=== PATIENT | female | born 1935 | race Caucasian/White ===

== ENCOUNTER → 2022-04-07 13:04 | Outpatient (CLI) | payer MEDICARE, OTHER, SELFPAY ==
--- NOTE | ~2022-04-07 | XR_ITS ---
XR hip LT min 2V DATE: 04/07/2022 13:51 INDICATION: Left hip pain TECHNIQUE: AP and lateral views of left hip COMPARISON: None FINDINGS: Mild left hip osteoarthritis. No fracture or dislocation, avascular necrosis or bone destru ction. Normal alignment at the pubic symphysis and sacral iliac joints. IMPRESSION: Mild left hip osteoarthritis Reviewed, dictated and finalized at location A.
== END ==
PROVIDERS: PCP Physician Assistant; Visit Provider Physician Assistant
DX: M16.12 Unilateral primary osteoarthritis, left hip (principal)
CPT/HCPCS: 73502

== ENCOUNTER → 2023-03-02 10:42 | Outpatient (CLI) | payer MEDICARE, OTHER, SELFPAY ==
--- NOTE | ~2023-03-02 | CT_ITS ---
EXAMINATION: CT abdomen pelvis wo con DATE: 03/02/2023 11:21 INDICATION: Unspecified abdominal pain TECHNIQUE: Computed tomography (CT) of the abdomen and pelvis was performed without intravenous contr ast. The dose-length product (DLP) was 880.62 mGy-cm. Automated exposure control and iterative recons truction technique were employed. COMPARISON: 04/22/2019 FINDINGS: Minimal dependent atelectasis is present in the lung bases. The heart size is normal. Calci fied coronary artery atherosclerosis is noted. A 5 mm nodule of the right lower lobe is not significa ntly changed since the comparison examination, consistent with old granulomatous disease. The liver, spleen, pancreas, gallbladder, and adrenal glands are normal. Cysts of the kidneys measure up to 3.1 cm on the left. There is calcified atherosclerosis of the aorta and many of the other arteries. No pa thologically enlarged abdominal or pelvic lymph nodes are identified. No free intraperitoneal gas or evidence of bowel obstruction. Colonic diverticulosis is present without evidence of diverticulitis. There is submucosal fat deposition of the ascending and transverse colon and rectum which is nonspeci fic. The appendix is normal. There is severe lumbar spondylosis. IMPRESSION: 1. No CT correlate for the patient's symptoms. Reviewed, dictated and finalized at location F.
== END ==
PROVIDERS: PCP Physician Assistant; Visit Provider Physician Assistant
DX: R10.9 Unspecified abdominal pain (principal)
CPT/HCPCS: 74176

== ENCOUNTER → 2023-04-03 11:21 | Outpatient (CLI) | payer MEDICARE, OTHER, SELFPAY ==
--- NOTE | ~2023-04-03 | CT_ITS ---
EXAMINATION: CT brain wo con DATE: 04/03/2023 12:08 INDICATION: Headache, unspecified. Dizziness. TECHNIQUE: Computed tomography (CT) of the head was performed without intravenous contrast. The mA wa s adjusted according to patient size. Iterative reconstruction technique was employed. The dose-lengt h product was 599.57 mGy-cm. COMPARISON: None FINDINGS: There is an infarct in the right occipital lobe. There are infarcts involving the right tem poral parietal white matter. There is no intracranial hemorrhage or abnormal mass lesion. The ventric les are normal in size. There are likely changes of ocular lens replacement surgeries. The paranasal sinuses are clear. The mastoid air cells are normal. IMPRESSION: 1. Infarcts involving the right temporal, parietal, and occipital lobes, most likely subacute. Reviewed, dictated and finalized at location E. IMPRESSION: 1. Infarcts involving the right temporal, parietal, and occipital lobes, most l ikely subacute.
== END ==
PROVIDERS: PCP Physician Assistant; Visit Provider Physician Assistant
DX: R51.9 Headache, unspecified (principal)
CPT/HCPCS: 70450

== ENCOUNTER 2023-06-09 08:35 | Emergency (ER) | payer MEDICARE, OTHER, SELFPAY ==
--- NOTE | ~2023-06-09 | CT_ITS ---
EXAMINATION: CT abdomen pelvis wo con DATE: 06/09/2023 11:50 INDICATION: Abdominal pain, rectal bleeding for 7 days TECHNIQUE: Computed tomography (CT) of the abdomen and pelvis was performed without intravenous contr ast. Automated exposure control and iterative reconstruction technique were employed. Exam dose: 113 2.88 mGy-cm total exam DLP. COMPARISON: 03/02/2023 CT abdomen pelvis 04/22/2019 CT abdomen pelvis FINDINGS: The lung bases are clear of infiltrate or consolidation. Normal heart size. Coronary artery calcifications. No pericardial or pleural effusion. Calcified right hilar and subcarinal nodes, calc ified middle lobe pulmonary edema, consistent with old pulmonary granulomatous disease. 6 mm posteromedial right lower lobe nodule, not significantly changed since 04/22/2019, consistent wi th benign process. Occasional hepatic and splenic calcified granulomas consistent with old granulomatous disease. No hep atic, splenic, pancreatic, and adrenal space-occupying mass lesion is evident. The gallbladder is pre sent. No bile duct or pancreatic duct dilatation. 2 cm lateral lower pole right renal probable exophytic cyst with attenuation of 15 Hounsfield units. 3.2 cm upper pole left renal exophytic cyst. No urinary tract calculus or hydroureteronephrosis. The uterus, adnexal areas and urinary bladder are unremarkable. Normal appendix. There numerous diverticula of left and right colon; no CT evidence of diverticulitis. No bowel obstru ction, bowel wall thickening, pneumatosis or intraperitoneal free air. Grade 1 anterolisthesis at L4-5 due to degenerative change at the apophyseal joints. Prominent multilevel degenerative disc disease of the mid and lower lumbar spine. No suspicious osteo lytic or osteoblastic lesions are noted. IMPRESSION: Renal cysts Normal appendix Diverticulosis of the colon; no evidence of diverticulitis Reviewed, dictated and finalized at Location A. Reviewed, dictated and finalized at location A. 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
[2023-06-09 08:39] VITALS: BP 217/88; PULSE 88; RESP 20; TEMP 36.2; O2SAT 97
[2023-06-09 08:58] LABS: Basophils Absolute Auto 0.1 K/mm3 (0.0-0.1); Eosinophils Absolute Auto 0.2 K/mm3 (0-0.3); Eosinophils Percent Auto 2.5 % (0-4.4); Hematocrit 37.2 % (37.0-47.0); Hemoglobin 11.7 g/dL (12.0-15.0); Immature Granulocyte Absolute 0.06 K/mm3 (0.00-0.031); Immature Granulocyte Percent A 0.7 % (0-0.5); Lymphocytes Absolute Auto 1.54 K/mm3 (0.9-3.2); Lymphocytes Percent Auto 17.6 % (18.3-44.2); Mean Corpuscular HGB Conc 31.5 g/dl (32-36); Mean Corpuscular Hemoglobin 28.5 pg (26-34); Mean Corpuscular Volume 90.5 fl (80-100); Mean Platelet Volume 8.9 fl (7.4-10.4); Monocytes Absolute Auto 0.4 K/mm3 (0.1-0.6); Monocytes Percent Auto 4.7 % (2.6-8.5); Neutrophils Absolute Auto 6.4 K/mm3 (1.3-6.7); Neutrophils Percent Auto 73.5 % (45.5-73.1); Platelet Count Result 342 k/mm3 (150-375); Red Blood Count 4.11 M/mm3 (4.2-5.4); Red Cell Distribution Width 13.7 % (11.5-14.5); White Blood Count 8.8 K/mm3 (4.5-10.0)
[2023-06-09 09:09] LABS: INR 0.9
[2023-06-09 09:10] LABS: Partial Thromboplastin Time 28.6 SECONDS (22.3-36.8)
[2023-06-09 09:12] LABS: Alanine Aminotransferase 13 U/L (6-35); Albumin Level 4.2 g/dL (3.5-5.1); Alkaline Phosphatase 126 U/L (38-126); Anion Gap 11 mmol/L (8-16); Aspartate Amino Transferase 18 U/L (14-36); Bilirubin,Total 0.5 mg/dL (0.2-1.3); Blood Urea Nitrogen 12 mg/dL (7-17); Calcium 9.1 mg/dL (8.4-10.2); Carbon Dioxide 25 mmol/L (22-30); Chloride 95 mmol/L (98-107); Estimated Glomerular Filt Rate 42; Glucose 229 mg/dL (65-110); Potassium 4.1 mmol/L (3.4-5.0); Sodium 131 mmol/L (137-145)
--- NOTE | 2023-06-09 11:18 | ED.GIBLEED ---
HPI - GI Bleed General Chief complaint: GI Bleed Stated complaint: rectal bleeding Time Seen by Provider: 06/09/23 10:42 Source: patient Mode of arrival: ambulatory Limitations: no limitations History of Present Illness HPI Narrative: This is a 88 year old female that presents to the ER for GI bleeding. Reports bright red blood per rectum this morning. Does report history of hemorrhoids. Reports some right sided abdominal pain and nausea. Reports she just finished Cipro for a UTI. Denies fever or vomiting. Related Data Home Medications Medication Instructions Recorded Confirmed albuterol sulfate 90 mcg/actuation 1 inhalation inhalation Q4H PRN 07/08/19 05/15/23 aerosol inhaler (Proventil HFA) loratadine 10 mg tablet (Claritin) 10 mg PO DAILY 07/08/19 05/15/23 acetaminophen 325 mg capsule 325 mg PO Q6H PRN 04/02/20 05/15/23 (Tylenol) docusate sodium 100 mg capsule 100 mg PO DAILY 04/02/20 05/15/23 sodium chloride 0.65 % nasal spray 2 spray intranasal QID PRN 04/02/20 05/15/23 aerosol (Saline Mist) Allergies Allergy/AdvReac Type Severity Reaction Status Date / Time amlodipine Allergy Unknown Diarrhea Verified 06/09/23 10:37 azithromycin Allergy Unknown Hives Verified 06/09/23 10:37 canagliflozin Allergy Unknown Itching Verified 06/09/23 10:37 cefuroxime Allergy Unknown Nausea and Verified 06/09/23 10:37 Vomiting celecoxib Allergy Unknown Diarrhea Verified 06/09/23 10:37 doxycycline Allergy Unknown Diarrhea Verified 06/09/23 10:37 ezetimibe Allergy Unknown Anaphylactic Verified 06/09/23 10:37 Shock fluconazole Allergy Unknown Nausea and Verified 06/09/23 10:37 Vomiting guaifenesin Allergy Unknown Rash Verified 06/09/23 10:37 hydrochlorothiazide Allergy Unknown Diarrhea Verified 06/09/23 10:37 levofloxacin Allergy Unknown Rash Verified 06/09/23 10:37 metronidazole Allergy Unknown Diarrhea Verified 06/09/23 10:37 nisoldipine Allergy Unknown Rash Verified 06/09/23 10:37 Penicillins Allergy Unknown Diarrhea Verified 06/09/23 10:37 phenylephrine Allergy Unknown Rash Verified 06/09/23 10:37 phenylpropanolamine Allergy Unknown Rash Verified 06/09/23 10:37 pravastatin Allergy Unknown Diarrhea Verified 06/09/23 10:37 rosuvastatin Allergy Unknown Diarrhea Verified 06/09/23 10:37 simvastatin Allergy Unknown Anaphylactic Verified 06/09/23 10:37 Shock Sulfa (Sulfonamide Allergy Unknown Diarrhea Verified 06/09/23 10:37 Antibiotics) terconazole Allergy Unknown ??RASH Unverified 06/09/23 10:37 tetracycline Allergy Unknown ??RASH Unverified 06/09/23 10:37 valsartan Allergy Unknown Diarrhea Verified 06/09/23 10:37 Contrast Media Allergy Unknown Rash Uncoded 06/09/23 10:37 CRESTOR Allergy Unknown ??REACTION Uncoded 06/09/23 10:37 ETHER Allergy Unknown DOES NOT Uncoded 06/09/23 10:37 REMEMBER NKFA Allergy Unknown Diarrhea Uncoded 06/09/23 10:37 RADIOPAQUECONTR Allergy Unknown FEET Uncoded 06/09/23 10:37 RASH,ITCHING Review of Systems Review of Systems: CONSTITUTIONAL: Denies fever GASTROINTESTINAL: Reports abdominal pain, nausea. Denies vomiting, or diarrhea. GENITOURINARY: Reports dysuria All systems reviewed & are unremarkable except as noted in HPI and below PMFSH Past Medical History Medical History (Updated 06/09/23 @ 14:00 by Nella Manjarrez PA-C) Anxiety disorder, unspecified Atherosclerotic heart disease of [place] coronary artery with unspecified angina pectoris Cerebrovascular accident (CVA) Chronic kidney disease (CKD) stage G3b/A2, moderately decreased glomerular filtration rate (GFR) between 30-44 mL/min/1.73 square meter and albuminuria creatinine ratio between 30-299 mg/g Chronic sinusitis, unspecified Gastro-esophageal reflux disease without esophagitis Hyperlipidemia, unspecified Hypertensive chronic kidney disease with stage 1 through stage 4 chronic kidney disease, or unspecified chronic kidney disease Hyponatremia Osteoarthritis Overactive bladder Type 2 diabetes mellitus with
[2023-06-09 11:48] LABS: Appearance Urine Clear (Clear); Bacteria Urine None Seen /hpf; Bilirubin Urine Negative (Negative); Blood Urine 2+ (Negative); Color Urine Yellow (Yellow); Glucose Urine UA Negative (Negative); Ketones Urine Negative (Negative); Leukocyte Esterase Ur 2+ LEU/UL (Negative); Nitrate Urine Negative (Negative); Non Pathogenic Casts 0-2; Protein Urine Negative (Negative); RBC Urine 0-2 /hpf (0-2); Specific Grav Ur 1.008 (1.001-1.035); Squamous Epithelial Cell Urine None seen /hpf (Few); Urobilinogen Urine 0.2 mg/dL (<2.0); pH Urine 6.5 (5.0-9.0)
[2023-06-09 11:50] LABS: Add Urine Microscopic? YES
[2023-06-09 12:04] VITALS: PULSE 67; RESP 17; O2SAT 99
[2023-06-09 12:40] VITALS: BP 183/72; PULSE 75
[2023-06-09 12:42] VITALS: BP 185/69; PULSE 74
[2023-06-09 12:43] VITALS: BP 173/94; PULSE 76
[2023-06-09 14:20] VITALS: BP 162/71; PULSE 74; RESP 15; O2SAT 98
== END 2023-06-09 14:25 | disposition home or self-care (01) ==
PROVIDERS: Emergency Medicine; Emergency Provider Physician Assistant; PCP Family Medicine
DX: K92.2 Gastrointestinal hemorrhage, unspecified (principal); K64.9 Unspecified hemorrhoids; R82.81 Pyuria; I25.10 Atherosclerotic heart disease of native coronary artery without angina pectoris; E11.22 Type 2 diabetes mellitus with diabetic chronic kidney disease; I12.9 Hypertensive chronic kidney disease with stage 1 through stage 4 chronic kidney disease, or unspecified chronic kidney disease; N18.32 Chronic kidney disease, stage 3b; J45.909 Unspecified asthma, uncomplicated; J32.9 Chronic sinusitis, unspecified; E78.5 Hyperlipidemia, unspecified; N32.81 Overactive bladder; M19.90 Unspecified osteoarthritis, unspecified site; F41.9 Anxiety disorder, unspecified; Z86.73 Personal history of transient ischemic attack (TIA), and cerebral infarction without residual deficits; Z79.82 Long term (current) use of aspirin; Z79.4 Long term (current) use of insulin; K57.90 Diverticulosis of intestine, part unspecified, without perforation or abscess without bleeding
CPT/HCPCS: 36415; 74176; 80053; 81001; 85025; 85610; 85730; 86850; 86900; 86901; 87086; 87088; 99284

== ENCOUNTER 2023-06-18 13:37 | Emergency (ER) | payer MEDICARE, OTHER, SELFPAY ==
[2023-06-18] VITALS (12 sets, daily range): BP systolic 147–254; BP diastolic 55–140; PULSE 77–121; RESP 15–31; TEMP 36.6; O2SAT 94–100
--- NOTE | ~2023-06-18 | XR_ITS ---
XR chest 1V portable DATE: 06/18/2023 16:19 INDICATION: Dyspnea. Lightheadedness. TECHNIQUE: Portable upright AP chest on 06/18/2023 at 1615 hours COMPARISON: 06/18/2017 two-view chest 12/15/2017 portable AP chest FINDINGS: Normal heart size. Aortic calcification and mild unfolding. No hilar or mediastinal enlarge ment is evident. No pulmonary infiltrate or consolidation, pleural effusion or pulmonary vascular congestion or pneumo thorax is detected. Osteopenia. Osteoarthritic change at the left glenohumeral joint. IMPRESSION: No active cardiopulmonary disease Aortic atherosclerosis Reviewed, dictated and finalized at location B. PUMPER PANELBOARD
--- NOTE | ~2023-06-18 | CT_ITS ---
EXAMINATION: CT brain wo con INDICATION: Dizziness COMPARISON: 04/03/2023 TECHNIQUE: Standard unenhanced head CT. The dose-length product (DLP) was 605.33 mGy-cm. The mA was a djusted according to patient size. Iterative reconstruction technique was employed. FINDINGS: No acute intraparenchymal hemorrhage. No evidence of mass lesion. No evidence of acute infa rction. There are old right temporoparietal and occipital infarcts. There is mild periventricular and subcortical hypodensity probably related to small vessel ischemic disease. There is mild prominence of the sulci and ventricles related to cerebral atrophy. Intracranial calcified cerebral atherosclero sis is noted. No extra-axial collections. No mass effect or midline shift. Changes in the globes are likely from ocular lens surgery. The visualized sinuses and mastoid air cells are well aerated. IMPRESSION: 1. Areas of prior infarction without acute intracranial abnormality. 2. Age related findings. Reviewed, dictated and finalized at location F. 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
--- NOTE | 2023-06-18 13:48 | ECG_ITS ---
Measurements Intervals [place] Rate: 83 P: -34 MI: 198 QRS: 40 QRSD: 126 T: 9 QT: 389 QTc: 458 Interpretive Statements SINUS RHYTHM ATRIAL PREMATURE COMPLEX RIGHT BUNDLE BRANCH BLOCK BASELINE ARTIFACT- I, II, III, AVR, AVL, AVF, V1 ABNORMAL ECG NO PREVIOUS ECG AVAILABLE FOR COMPARISON Electronically Signed On 06-18-2023 14:10:18 AIR BAG BUFFER by Pawan Torres D.O.
--- NOTE | 2023-06-18 14:36 | ED.DIZZY ---
HPI - Dizziness General Chief Complaint: Dizziness <KYLAH Jiménez Last Filed: 06/18/23 14:44> Stated Complaint: Dizzy <KYLAH Jiménez Last Filed: 06/18/23 14:44> Time Seen by Provider: 06/18/23 14:36 <Tommy Lemos PA-C - Last Filed: 06/18/23 14:44> Source: patient <KYLAH Jiménez Last Filed: 06/18/23 14:44> Mode of arrival: wheelchair <KYLAH Jiménez Last Filed: 06/18/23 14:44> Limitations: no limitations <KYLAH Jiménez Last Filed: 06/18/23 14:44> History of Present Illness HPI Narrative: This is a 88-year-old female who presents to the ED with chief complaint lightheadedness for the past 3-4 days. Reports that whenever she stands up or sits up she starts to feel more and more lightheaded. She has not had any full syncopal episodes. She does admit to feeling short of breath whenever she lays flat. Also reports that she had an episode of chest heaviness a couple of days ago. Denies head injury. Denies numbness, weakness, vertigo, abdominal pain, vomiting, diarrhea. Denies GI bleeding symptoms. <Tommy Lemos PA-C - Last Filed: 06/18/23 14:44> Related Data Home Medications: Home Medications Medication Instructions Recorded Confirmed albuterol sulfate 90 mcg/actuation 1 inhalation inhalation Q4H PRN 07/08/19 05/15/23 aerosol inhaler (Proventil HFA) loratadine 10 mg tablet (Claritin) 10 mg PO DAILY 07/08/19 05/15/23 acetaminophen 325 mg capsule 325 mg PO Q6H PRN 04/02/20 05/15/23 (Tylenol) docusate sodium 100 mg capsule 100 mg PO DAILY 04/02/20 05/15/23 sodium chloride 0.65 % nasal spray 2 spray intranasal QID PRN 04/02/20 05/15/23 aerosol (Saline Mist) nitrofurantoin 100 mg PO Q12H 06/11/23 monohydrate/macrocrystals 100 mg capsule <Tommy Lemos PA-C - Last Filed: 06/18/23 14:44> Allergies/Adverse Reactions: Allergies Allergy/AdvReac Type Severity Reaction Status Date / Time amlodipine Allergy Unknown Diarrhea Verified 06/18/23 16:05 azithromycin Allergy Unknown Hives Verified 06/18/23 16:05 canagliflozin Allergy Unknown Itching Verified 06/18/23 16:05 cefuroxime Allergy Unknown Nausea and Verified 06/18/23 16:05 Vomiting celecoxib Allergy Unknown Diarrhea Verified 06/18/23 16:05 doxycycline Allergy Unknown Diarrhea Verified 06/18/23 16:05 ezetimibe Allergy Unknown Anaphylactic Verified 06/18/23 16:05 Shock fluconazole Allergy Unknown Nausea and Verified 06/18/23 16:05 Vomiting guaifenesin Allergy Unknown Rash Verified 06/18/23 16:05 hydrochlorothiazide Allergy Unknown Diarrhea Verified 06/18/23 16:05 levofloxacin Allergy Unknown Rash Verified 06/18/23 16:05 metronidazole Allergy Unknown Diarrhea Verified 06/18/23 16:05 nisoldipine Allergy Unknown Rash Verified 06/18/23 16:05 Penicillins Allergy Unknown Diarrhea Verified 06/18/23 16:05 phenylephrine Allergy Unknown Rash Verified 06/18/23 16:05 phenylpropanolamine Allergy Unknown Rash Verified 06/18/23 16:05 pravastatin Allergy Unknown Diarrhea Verified 06/18/23 16:05 rosuvastatin Allergy Unknown Diarrhea Verified 06/18/23 16:05 simvastatin Allergy Unknown Anaphylactic Verified 06/18/23 16:05 Shock Sulfa (Sulfonamide Allergy Unknown Diarrhea Verified 06/18/23 16:05 Antibiotics) terconazole Allergy Unknown ??RASH Verified 06/18/23 16:05 tetracycline Allergy Unknown ??RASH Verified 06/18/23 16:05 valsartan Allergy Unknown Diarrhea Verified 06/18/23 16:05 Contrast Media Allergy Unknown Rash Uncoded 06/18/23 16:05 CRESTOR Allergy Unknown ??REACTION Uncoded 06/18/23 16:05 ETHER Allergy Unknown DOES NOT Uncoded 06/18/23 16:05 REMEMBER NKFA Allergy Unknown Diarrhea Uncoded 06/18/23 16:05 RADIOPAQUECONTR Allergy Unknown FEET Uncoded 06/18/23 16:05 RASH,ITCHING <Tommy Lemos PA-C - Last Filed: 06/18/23 14:44> Review of Systems Review of Systems: All systems as dictated in HPI <KRYS Jiménez-Alex - Last Filed: 06/18/23 14:44>
[2023-06-18 14:51] LABS: Basophils Absolute Auto 0.1 K/mm3 (0.0-0.1); Basophils Percent Auto 0.8 % (0.2-1.2); Eosinophils Absolute Auto 0.2 K/mm3 (0-0.3); Eosinophils Percent Auto 1.9 % (0-4.4); Hematocrit 36.7 % (37.0-47.0); Hemoglobin 11.6 g/dL (12.0-15.0); Immature Granulocyte Absolute 0.07 K/mm3 (0.00-0.031); Immature Granulocyte Percent A 0.7 % (0-0.5); Lymphocytes Absolute Auto 1.98 K/mm3 (0.9-3.2); Lymphocytes Percent Auto 19.1 % (18.3-44.2); Mean Corpuscular HGB Conc 31.6 g/dl (32-36); Mean Corpuscular Hemoglobin 28.7 pg (26-34); Mean Corpuscular Volume 90.8 fl (80-100); Mean Platelet Volume 8.5 fl (7.4-10.4); Monocytes Absolute Auto 0.5 K/mm3 (0.1-0.6); Monocytes Percent Auto 4.3 % (2.6-8.5); Neutrophils Absolute Auto 7.6 K/mm3 (1.3-6.7); Neutrophils Percent Auto 73.2 % (45.5-73.1); Platelet Count Result 349 k/mm3 (150-375); Red Blood Count 4.04 M/mm3 (4.2-5.4); White Blood Count 10.4 K/mm3 (4.5-10.0)
[2023-06-18 15:01] LABS: Alanine Aminotransferase 14 U/L (6-35); Albumin Level 4.2 g/dL (3.5-5.1); Alkaline Phosphatase 135 U/L (38-126); Anion Gap 11 mmol/L (8-16); Aspartate Amino Transferase 18 U/L (14-36); Bilirubin,Total 0.4 mg/dL (0.2-1.3); Blood Urea Nitrogen 17 mg/dL (7-17); Calcium 9.1 mg/dL (8.4-10.2); Carbon Dioxide 24 mmol/L (22-30); Chloride 97 mmol/L (98-107); Estimated Glomerular Filt Rate 52; Glucose 268 mg/dL (65-110); Potassium 4.3 mmol/L (3.4-5.0); Sodium 132 mmol/L (137-145)
[2023-06-18 15:12] LABS: NT Pro B Type Natriuretic Pept 131 pg/mL (19.9-100); Troponin I < 0.012 ng/mL (0.000-0.034)
[2023-06-18 17:09] LABS: Appearance Urine Clear (Clear); Bacteria Urine None Seen /hpf; Bilirubin Urine Negative (Negative); Blood Urine Trace (Negative); Color Urine Yellow (Yellow); Glucose Urine UA 2+ mg/dL (Negative); Ketones Urine Negative (Negative); Leukocyte Esterase Ur 3+ LEU/UL (Negative); Nitrate Urine Negative (Negative); Non Pathogenic Casts 0-2; Protein Urine Trace mg/dL (Negative); RBC Urine 0-2 /hpf (0-2); Specific Grav Ur 1.012 (1.001-1.035); Squamous Epithelial Cell Urine Occasional /hpf (Few); Urobilinogen Urine 0.2 mg/dL (<2.0); WBC Urine 21-50 /hpf; pH Urine 5.5 (5.0-9.0)
[2023-06-18 17:14] LABS: Add Urine Microscopic? YES
[2023-06-18 18:23] LABS: Glucose Point of Care 125 mg/dl (65-105)
--- NOTE | 2023-06-18 18:48 | ECG_ITS ---
Measurements Intervals [place] Rate: 84 P: 65 [place]: 205 QRS: 46 QRSD: 134 T: 12 QT: 377 QTc: 448 Interpretive Statements SINUS RHYTHM RIGHT BUNDLE BRANCH BLOCK MINIMAL Q WAVES- INFERIOR LEADS BASELINE ARTIFACT- I, II, AVR, AVL, AVF, V1, V4-V6 ABNORMAL ECG COMPARED TO ECG 06/18/2023 13:53:30 NO SIGNIFICANT CHANGES Electronically Signed On 06-18-2023 19:30:39 HVAC/R SERVICE TECHNICIAN by Pawan Torres D.O.
[2023-06-18] MEDS: hydrALAZINE HCL 20 MG/ML VIAL 10 MG IV PUSH (18:58)
[2023-06-18] MEDS: SODIUM CHLORIDE 0.9% IV 1,000 ML 999 ML IV CONT (18:58)
[2023-06-18] MEDS: LORazepam INJ (*CRX) 2 MG/ML VIAL 0.5 MG IV PUSH (18:58)
[2023-06-18 19:04] LABS: Influenza A QL RT-PCR Negative (Negative); Influenza B QL RT-PCR Negative (Negative); RSV RNA, RT-PCR Negative (Negative); SARS-CoV-2 RNA PCR Negative (Negative)
[2023-06-18 19:23] LABS: Troponin I < 0.012 ng/mL (0.000-0.034)
== END 2023-06-18 20:25 | disposition home or self-care (01) ==
PROVIDERS: Physician Assistant; Emergency Provider Emergency Medicine; PCP Family Medicine
DX: I12.9 Hypertensive chronic kidney disease with stage 1 through stage 4 chronic kidney disease, or unspecified chronic kidney disease (principal); F41.9 Anxiety disorder, unspecified; R09.81 Nasal congestion; Z20.822 Contact with and (suspected) exposure to COVID-19; R06.02 Shortness of breath; R82.998 Other abnormal findings in urine; E11.22 Type 2 diabetes mellitus with diabetic chronic kidney disease; N18.32 Chronic kidney disease, stage 3b; E78.5 Hyperlipidemia, unspecified; I25.119 Atherosclerotic heart disease of native coronary artery with unspecified angina pectoris; J45.909 Unspecified asthma, uncomplicated; J32.9 Chronic sinusitis, unspecified; K21.9 Gastro-esophageal reflux disease without esophagitis; M19.90 Unspecified osteoarthritis, unspecified site; N32.81 Overactive bladder; Z86.73 Personal history of transient ischemic attack (TIA), and cerebral infarction without residual deficits; Z79.82 Long term (current) use of aspirin; Z79.4 Long term (current) use of insulin; I49.1 Atrial premature depolarization; I45.10 Unspecified right bundle-branch block
CPT/HCPCS: 36415; 70450; 71045; 80053; 81001; 82948; 83880; 84484; 85025; 87086; 87088; 87637; 93005; 96361; 96374; 96375; 99284; J0360; J2060; J7030

== ENCOUNTER 2023-11-26 14:39 | Outpatient (NON) | payer MEDICARE, OTHER, SELFPAY ==
[2023-11-26 19:16] LABS: Appearance Urine Cloudy (Clear); Bacteria Urine 4+ /hpf; Bilirubin Urine Negative (Negative); Blood Urine Negative (Negative); Color Urine Dark Yellow (Yellow); Glucose Urine UA Negative (Negative); Ketones Urine Trace mg/dL (Negative); Leukocyte Esterase Ur 2+ LEU/UL (Negative); Nitrate Urine Positive (Negative); Protein Urine 1+ mg/dL (Negative); RBC Urine 0-2 /hpf (0-2); Specific Grav Ur 1.026 (1.001-1.035); Squamous Epithelial Cell Urine Occasional /hpf (Few); WBC Urine 51-100 /hpf (0-3)
[2023-11-26 19:20] LABS: Add Urine Microscopic? YES
== END 2023-11-26 14:40 | disposition home or self-care (01) ==
PROVIDERS: PCP Family Medicine; Visit Provider Physician Assistant
DX: N39.9 Disorder of urinary system, unspecified (principal); L29.9 Pruritus, unspecified; B37.31 Acute candidiasis of vulva and vagina; R21 Rash and other nonspecific skin eruption; M25.50 Pain in unspecified joint
CPT/HCPCS: 81001; 87077; 87086; 87088; 87186

== ENCOUNTER 2023-12-12 14:50 | Outpatient (NON) | payer MEDICARE, OTHER, SELFPAY ==
[2023-12-12 19:21] LABS: Appearance Urine Clear (Clear); Bacteria Urine None Seen /hpf; Bilirubin Urine Negative (Negative); Blood Urine Negative (Negative); Color Urine Yellow (Yellow); Glucose Urine UA 1+ mg/dL (Negative); Ketones Urine Negative (Negative); Leukocyte Esterase Ur 2+ LEU/UL (Negative); Nitrate Urine Negative (Negative); Non Pathogenic Casts 0-2; Protein Urine Negative (Negative); RBC Urine 0-2 /hpf (0-2); Specific Grav Ur 1.011 (1.001-1.035); Squamous Epithelial Cell Urine Occasional /hpf (Few); Urobilinogen Urine 0.2 mg/dL (<2.0); pH Urine 5.5 (5.0-9.0)
[2023-12-12 20:13] LABS: Add Urine Microscopic? YES
== END 2023-12-12 14:51 | disposition home or self-care (01) ==
PROVIDERS: PCP Family Medicine; Visit Provider Physician Assistant
DX: B37.31 Acute candidiasis of vulva and vagina (principal); R21 Rash and other nonspecific skin eruption; L29.9 Pruritus, unspecified; N89.8 Other specified noninflammatory disorders of vagina; N39.0 Urinary tract infection, site not specified
CPT/HCPCS: 81001; 87086; 87088

== ENCOUNTER 2024-02-11 12:38 | Outpatient (CLI) | payer MEDICARE, OTHER, SELFPAY ==
--- NOTE | ~2024-02-11 | US_ITS ---
EXAMINATION: US venous doppler LE RT DATE: 02/11/2024 13:38 INDICATION: Right lower limb localized edema. TECHNIQUE: Grayscale ultrasound images without and with compression and Doppler ultrasound images of the right lower extremity veins were obtained. COMPARISON: None. FINDINGS: The visualized portions of right common femoral vein, profunda (deep) femoral vein, femoral vein, pop liteal vein, and greater saphenous vein outflow are patent. The calf veins are not well evaluated due to patient pain. There is thrombus in right greater saphenous vein. IMPRESSION: 1. No deep venous thrombosis. 2. Superficial vein thrombosis involving right greater saphenous vein. Reviewed, dictated and finalized at location A.
== END 2024-02-11 12:39 | disposition home or self-care (01) ==
LOC: ANHIMG 12:41
PROVIDERS: PCP Family Medicine; Visit Provider Family Medicine
DX: R60.0 Localized edema (principal)
CPT/HCPCS: 93971

== ENCOUNTER 2024-05-11 14:30 | Inpatient (IN) | payer MEDICARE, OTHER, SELFPAY ==
--- NOTE | ~2024-05-11 | CT_ITS ---
EXAMINATION: CT abdomen pelvis wo con DATE: 05/12/2024 15:59 INDICATION: Sepsis, abdominal pain and altered mental status. TECHNIQUE: Computed tomography (CT) of the abdomen and pelvis was performed without intravenous contr ast. Automated exposure control and iterative reconstruction technique were employed. The dose-length product was 1352.93 mGy-cm. COMPARISON: 06/09/2023 FINDINGS: Small right and tiny left posterior layering pleural effusions with mild dependent atelectasis in the lower lobes. Calcified bilateral lower lobe nodules consistent with old granulomatous disease. Heart size is normal. Atherosclerotic coronary artery calcification. Aortic valve calcification. No perica rdial effusion. Liver, gallbladder, spleen, pancreas, bilateral adrenal glands are normal. Mild to moderate bilateral renal atrophy with bilateral renal cysts, the largest on the left measuring 3.4 cm. There is moderat e colonic diverticulosis with a sigmoid predominance. There is no adjacent inflammatory change to hough ggest diverticulitis. Normal appendix. There are couple small intraluminal lipomas along loops of non obstructed small bowel in the right lower quadrant, the larger measuring 2.2 cm in maximal dimension. Bennett catheter within the decompressed bladder. Uterus and bilateral adnexa are unremarkable. No free intraperitoneal gas or fluid. No pathologically enlarged abdominal or pelvic lymphadenopathy. Scarri ng at the anterior abdominal wall in the region of the umbilicus suggesting possible prior umbilical hernia repair. There is calcified atherosclerosis of the aorta and many of the other arteries. Severe lumbar spondylosis. Minimal superficial subcutaneous gas in the infraumbilical right lower quadrant anterior abdominal wall likely related to subcutaneous injection. IMPRESSION: 1. Small right and tiny left pleural effusions. 2. Moderate colonic diverticulosis. Reviewed, dictated and finalized at location A. CAR BRACER
--- NOTE | ~2024-05-11 | CT_ITS ---
EXAMINATION: CT brain wo con DATE: 05/11/2024 15:11 INDICATION: Altered mental state TECHNIQUE: Computed tomography (CT) of the abdomen was performed without intravenous contrast. Automa renée exposure control and iterative reconstruction technique were employed. Exam dose: 690.50 mGy-cm total exam DLP. COMPARISON: None. FINDINGS: Vertebral artery calcification, particularly prominent in the left. Bilateral carotid siphon internal carotid artery calcifications. There is nonspecific diminished attenuation the cerebral white matter, likely due to chronic small ve ssel ischemic changes. There is infarcts involving the right temporal and occipital region. No intracranial mass lesion or hemorrhage or cerebrovascular infarct is noted otherwise. No midline s hift or mass effect. No subdural or epidural hematoma. The paranasal sinuses are unremarkable. There is limited development of the mastoid air cells. No fracture or bone destruction of the cranial vault is detected. 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 Reviewed, dictated and finalized at location A. 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
--- NOTE | ~2024-05-11 | XR_ITS ---
XR chest 1V DATE: 05/11/2024 15:23 INDICATION: Chest pain TECHNIQUE: Supine AP view on 05/11/2024 at 1519 hours COMPARISON: 06/19/2023 portable AP chest at 1615 hours FINDINGS: There is moderate elevation the right leaf of the diaphragm. Mild infiltrate or atelectasis is suggested in both lower lung zones. Chronic mild blunting of left costophrenic angle. Heart size appears borderline enlarged. There is thoracic aortic and descending thoracic aortic calci fication. There is pulmonary vascular redistribution and mild prominence of the minor fissure which may indicat e mild congestive change, subpleural edema. No pneumothorax. Cardiomegaly, pulmonary vascular redistribution, possible minor fissure, suggesting possible mild con gestive heart failure Mild infiltrate or atelectasis in the lower lung zones Aortic atherosclerosis IMPRESSION: Reviewed, dictated and finalized at location A. ATOR PILOT IMPRESSION:
--- NOTE | ~2024-05-11 | XR_ITS ---
Portable chest x-ray Comparison: 05/11/2024 Clinical History: Shortness of breath Findings: There is increasing left basilar hazy airspace disease. There is probable mild interstitia l prominence in the right upper lobe. Probable minimal pleural effusions. Cardiomediastinal silhouett e is stable. Bones and soft tissues are unremarkable. Impression: Increasing hazy left basilar airspace disease. Correlate for worsening pulmonary edema/atelectasis ve rsus pneumonia. Possible minimal pleural effusions. Increasing interstitial pattern in the right upper lobe, nonspecific. Reviewed, dictated and finalized at location . O GAME DESIGNER Impression: Increasing hazy left basilar airspace disease. Correlate for worsening pulmonar y edema/atelectasis versus pneumonia. Possible minimal pleural effusions. Increasing interstitial pattern in the right upper lobe, nonspecific.
--- NOTE | ~2024-05-11 | XR_ITS ---
EXAMINATION: XR chest 1V DATE: 05/16/2024 09:55 INDICATION: Wheezing and shortness of breath TECHNIQUE: frontal view of the chest was obtained. COMPARISON: Chest radiograph dated 05/12/2024 FINDINGS: Calcified nodule at the right lung base consistent with old granulomatous disease. Hazy opacities at the bilateral lower lung zones with blunting at costophrenic angles consistent with small bilateral p leural effusions. Linear discoid atelectasis at the left lower lung zone. No pneumothorax. Heart size is normal. There is residual barium in the esophagus and stomach from the recently completed modifie d barium swallow study. IMPRESSION: 1. Small bilateral pleural effusions with associated left basilar atelectasis. Reviewed, dictated and finalized at location A. L PLATE PRINTER
--- NOTE | ~2024-05-11 | XR_ITS ---
MODIFIED ESOPHAGRAM HISTORY: Coughing when drinking fluids TECHNIQUE: Modified barium esophagram was performed on 05/16/2024. I administered fluoroscopy and per formed the exam with speech pathologist. Patient was seated for lateral fluoroscopic imaging for ing estion of thin liquids, pudding, solids and quantified amounts, followed by thin liquids in uncontrol led amounts. This was recorded on tape. No fluoroscopic images were recorded. The DAP for this proced ure was 2.7 Gycm2. The amount of fluoroscopy time used during this procedure was 2.5 minutes. FINDINGS: Oral stage: Patient is edentulous which interferes with mastication. Marked alveolar resorption at th e mandible and maxilla. Pharyngeal stage: There is reduced laryngeal elevation. There is flash laryngeal penetration which cl ears without aspiration. Cervical/esophageal stage: Adequate function. IMPRESSION: Flash laryngeal penetration without aspiration. Please correlate with speech pathologist findings and specific feeding recommendations. Reviewed, dictated and finalized at location A. ORN PHOTOGRAPHER IMPRESSION: Flash laryngeal penetration without aspiration. Please correlate w sampson speech pathologist findings and specific feeding recommendations.
--- NOTE | 2024-05-11 14:38 | ECG_ITS ---
Test Date: 2024-05-11 15:41:04 Measurements Intervals [place] Rate: 122 P: 0 ND: 0 QRS: 52 QRSD: 121 T: -17 QT: 329 QTc: 469 Interpretive Statements ATRIAL FIBRILLATION WITH RAPID VENTRICULAR RESPONSE RIGHT BUNDLE BRANCH BLOCK [120+ ms QRS DURATION, UPRIGHT V1, 40+ ms S IN I/aVL/V4/V5/V6] No previous ECG available for comparison Electronically Signed On 05-12-2024 12:43:24 SUPERVISOR FINISHING by Shashi Sanchez M.D.
--- NOTE | 2024-05-11 14:40 | ED_ITS ---
HPI - Altered Mental Status General Chief Complaint: Altered Mental Status <Courtney Huggins PA-C - Last Filed: 05/11/24 19:20> Stated Complaint: AMS, ?UTI <KYLAH Cool Last Filed: 05/11/24 19:20> Source: patient, EMS and old records reviewed <Courtney Huggins PA-C - Last Filed: 05/11/24 19:20> Mode of arrival: EMS <Courtney Huggins PA-C - Last Filed: 05/11/24 19:20> Limitations: altered mental status and dementia <KYLAH Cool Last Filed: 05/11/24 19:20> History of Present Illness HPI narrative: Patient is an 89-year-old female, with PMH of CVA, CKD, DM, anxiety, who presents the ED via EMS with report of AMS. Per EMS report, family called out for EMS today due to patient being altered. Alert to herself which is not her baseline. Family reports patient just became altered today. Typically A&OX4, requires minimal assistance, able to hold conversation. History of frequent UTIs, family's concern for recurrent UTI. Patient unable to provide any information. Grabbing at cords and monitor leads, difficult to redirect. <Courtney Huggins PA-C - Last Filed: 05/11/24 19:20> Related Data Home Medications: Home Medications Medication Instructions Recorded Confirmed albuterol sulfate 90 mcg/actuation 1 inhalation inhalation Q4H PRN 07/08/19 05/11/24 aerosol inhaler (Proventil HFA) sob/wheezing loratadine 10 mg tablet (Claritin) 10 mg PO DAILY 07/08/19 05/11/24 acetaminophen 325 mg capsule 325 mg PO Q6H PRN Pain 04/02/20 05/11/24 (Tylenol) docusate sodium 100 mg capsule 100 mg PO DAILY 04/02/20 05/11/24 sodium chloride 0.65 % nasal spray 2 spray intranasal QID PRN dryness 04/02/20 05/11/24 aerosol (Saline Mist) fluticasone propionate 50 1 spray intranasal PRN PRN 05/11/24 05/11/24 mcg/actuation nasal allergies spray,suspension hydroxyzine HCl 25 mg tablet 25 mg PO Q6-8H PRN Anxiety 05/11/24 05/11/24 insulin lispro protamine-lispro 16 unit subcut BID 05/11/24 05/11/24 100 unit/mL (75-25) subcutaneous pen (Humalog Mix 75-25 KwikPen) isosorbide mononitrate 60 mg 60 mg PO DAILY 05/11/24 05/11/24 tablet,extended release 24 hr nystatin 100,000 unit/gram topical 1 applic topical PRN PRN irritation 05/11/24 05/11/24 powder omeprazole 20 mg capsule,delayed 20 mg PO DAILY 05/11/24 05/11/24 release ursodiol 250 mg tablet 250 mg PO BID 05/11/24 05/11/24 <Courtney Huggins PA-C - Last Filed: 05/11/24 19:20> Allergies/Adverse Reactions: Allergies Allergy/AdvReac Type Severity Reaction Status Date / Time amlodipine Allergy Unknown TIRED, Unverified 05/11/24 16:43 FATIGUE,Diarrhea azithromycin Allergy Unknown ??RASH,Hive Unverified 05/11/24 16:43 s canagliflozin Allergy Unknown Itching Verified 05/11/24 16:43 cefuroxime Allergy Unknown Nausea and Verified 05/11/24 16:43 Vomiting celecoxib Allergy Unknown ?? Unverified 05/11/24 16:43 REACTION,Diarrhea doxycycline Allergy Unknown Nausea and Unverified 05/11/24 16:43 Vomiting,Diarrhea ezetimibe Allergy Unknown Anaphylactic Unverified 05/11/24 16:43 Shock,Anaphylactic Shock fluconazole Allergy Unknown Nausea and Verified 05/11/24 16:43 Vomiting guaifenesin Allergy Unknown Rash Verified 05/11/24 16:43 hydrochlorothiazide Allergy Unknown ???REACTION Unverified 05/11/24 16:43 ,Diarrhea levofloxacin Allergy Unknown Rash Verified 05/11/24 16:43 metronidazole Allergy Unknown ??REACTION, Unverified 05/11/24 16:43 Diarrhea nisoldipine Allergy Unknown Rash Verified 05/11/24 16:43 Penicillins Allergy Unknown ??RASH,Diar Unverified 05/11/24 16:43 marco phenylephrine Allergy Unknown Rash Verified 05/11/24 16:43 phenylpropanolamine Allergy Unknown Rash Verified 05/11/24 16:43 pravastatin Allergy Unknown ??REACTION, Unverified 05/11/24 16:43 Diarrhea rosuvastatin Allergy Unknown Diarrhea Verified 05/11/24 16:43 simvastatin Allergy Unknown Anaphylactic Unverified 05/11/24 16:43 Shock,Anaphylactic Shock Sulfa (Sulfonamide Allergy Unknown RASH???,Sammie Unverified 05/11/24 16:43 Antibiotics) rrhea terconazole Allergy Unknown ??RASH Verified 05/11/24 16:43 tetracycline Allergy Unknown ??RASH Verified 05/11/24 16:43 valsartan Allergy Unknown ???REACTION Unverified 05/11/24 16:43 ,Diarrhea Contrast Media Allergy Unknown Rash Uncoded 05/11/24 16:43 CRESTOR Allergy Unknown ??REACTION Uncoded 05/11/24 16:43 ETHER Allergy Unknown DOES NOT Uncoded 05/11/24 16:43 REMEMBER NKFA Allergy Unknown Not Uncoded 05/11/24 16:43 Entered,Diarrhea RADIOPAQUECONTR Allergy Unknown FEET Uncoded 05/11/24 16:43 RASH,ITCHING <Courtney Huggins PA-C - Last Filed: 05/11/24 19:20> Review of Systems Review of Systems: ROS unobtainable: Yes unobtainable due to mental status <Courtney Huggins PA-C - Last Filed: 05/11/24 19:20> [facility] Past Medical History Medical History: Medical History (Updated 05/11/24 @ 21:16 by Tatum Newberry DO) Anxiety disorder, unspecified 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, moderately decreased glomerular filtration rate (GFR) between 30-44 mL/min/1.73 square meter and albuminuria creatinine ratio between 30-299 mg/g Chronic sinusitis, unspecified Essential hypertension Gastro-esophageal reflux disease without esophagitis History of ischemic cerebrovascular accident (CVA) with residual deficit Hyperlipidemia, unspecified Hyponatremia Osteoarthritis Overactive bladder Type 2 diabetes mellitus with hyperglycemia, with long-term current use of insulin Unspecified asthma, uncomplicated <KYLAH Cool Last Filed: 05/11/24 19:20> Surgical History Surgical History: Surgical History History of tonsillectomy and adenoidectomy History of umbilical hernia repair 08/2010 <Courtney Huggins PA-C - Last Filed: 05/11/24 19:20> Family History Family History: Family History Other Cerebrovascular accident Diabetes mellitus Family history of arthritis Family history of cardiovascular disease Family history of congestive heart failure Family history of hearing loss Family history of lung cancer Family history of lung disease Family history of mental disorder Family history of obesity Family history of osteoporosis Hypertension <Courtney Huggins PA-C - Last Filed: 05/11/24 19:20> Social History Social History: Social History (Updated 05/11/24 @ 21:18 by Tatum Newberry DO) Social History: Code status: Full code per EMR Surrogate decision maker: Don (son) Smoking status: Never smoker Alcohol intake: never Substance use: never Do You Feel Safe in your Home?: Yes Lack of Transportation: No Lack of Food: Never True Current Housing: I Have Housing Concerned About Future Housing: No Difficulty Paying Gas/Electric Bills: YES Difficulty Paying for Meds: YES Currently Unemployed: YES Education: High School Diploma/GED Difficulty w/ Childcare or Family Care: No Living arrangements: with family Occupation/Education: retired Gender identity (if verbalized by the patient): Female Sexual Orientation (if Verbalized by the Patient): Straight or Heterosexual Spiritual care concerns: No <Courtney Huggins PA-C - Last Filed: 05/11/24 19:20> Exam Narrative: GENERAL: Elderly, morbidly obese with BMI of 41.1, non-toxic, in no acute distress. HEAD: Normocephalic, atraumatic. RESPIRATORY: Airway patent. Occasional expiratory wheezing, mild tachypnea but respirations are nonlabored. CARDIOVASCULAR: Tachycardic with regular rhythm without murmurs, rubs, or ga llops. ABDOMINAL: Abdomen appears somewhat distended, but is still soft, no appreciable tenderness. Normoactive BS. MUSCULOSKELETAL: No gross deformities. SKIN: Warm, dry, normal color. NEURO: A&O X1, able to tell her name. Unable to give her birthday or identify location/year. Unable to follow commands or provide information. Speech clear. Cranial nerves II-XII grossly intact. No ataxic movements. No gross focal deficits. PSYCHIATRIC: Patient mildly anxious appearing, confused, difficult to redirect. Grabbing at cords, uncooperative. <Courtney Huggins PA-C - Last Filed: 05/11/24 19:20> Course [employer]'S ENGINEER/PA Physician Supervision I agree with midlevel documentation; I had independent [id number] time with the patient and performed my own independent evaluation and assessment and contributed to the MDM. Agree with the workup conducted by the midlevel provider and plan going forward for treatment of her suspected sepsis with likely source being urinary tract infection causing her mental status decline. CT head was independent reviewed which shows chronic old infarct. She is on antibiotics at this time and had improvement in her heart rate after rate-controlling medications. Patient is hemodynamically stable at this time and will be admitted to the hospital for further evaluation and treatment. Please refer to P dictation for further details on course and admission. <Ilia Verdugo MD - Last Filed: 05/11/24 22:43> Vital Signs Vital signs: Vital Signs Temperature 36.9 C 05/11/24 14:41 Pulse Rate 132 H 05/11/24 14:41 Respiratory Rate 20 05/11/24 14:41 Blood Pressure 199/106 H 05/11/24 14:41 Pulse Oximetry 88 L 05/11/24 14:41 Oxygen Delivery Room Air 05/11/24 14:41 Temperature 37.4 C 05/11/24 21:46 Pulse Rate 102 H 05/11/24 21:46 Respiratory Rate 32 H 05/11/24 21:46 Blood Pressure 175/78 H 05/11/24 21:46 Pulse Oximetry 96 05/11/24 21:46 Oxygen Delivery Nasal Cannula 05/11/24 14:52 Oxygen Flow Rate 2 05/11/24 14:52 <Courtney Huggins PA-C - Last Filed: 05/11/24 19:20> Vital Signs Temperature 36.9 C 05/11/24 14:41 Pulse Rate 132 H 05/11/24 14:41 Respiratory Rate 20 05/11/24 14:41 Blood Pressure 199/106 H 05/11/24 14:41 Pulse Oximetry 88 L 05/11/24 14:41 Oxygen Delivery Room Air 05/11/24 14:41 Temperature 37.4 C 05/11/24 21:46 Pulse Rate 102 H 05/11/24 21:46 Respiratory Rate 32 H 05/11/24 21:46 Blood Pressure 175/78 H 05/11/24 21:46 Pulse Oximetry 96 05/11/24 21:46 Oxygen Delivery Nasal Cannula 05/11/24 14:52 Oxygen Flow Rate 2 05/11/24 14:52 <Ilia Verdugo MD - Last Filed: 05/11/24 22:43> MDM - Altered Mental Status MDM Narrative Medical decision making narrative: Patient presented to ED with altered mental status, alert to self currently, which is abnormal for her per family according to EMS. History of frequent UTIs. Patient is tachycardic upon arrival, confused, anxious, difficult to redirect. She does not appear to have any gross focal deficits. Patient is tachycardic and hypertensive with heart rate into the 130s. She was noted to be borderline hypoxic and was placed on 2 L nasal cannula. She is afebrile here. EKG was obtained and showing AFib with RVR, rate in the 120s. No history of AFib in records. Patient is on metoprolol and diltiazem per med rec. Son does not know of any history of AFib. There was minimal improvement heart rate after fluid administration. She was given small dose of IV metoprolol in the ED. HR did respond, now in 90s and appears more sinus on monitor. Repeat ekg obtained. CBC is with leukocytosis 14.0. Mild anemia noted at 10.8. No recent records to compare to. CMP with hyponatremia of 133. Stable kidney function. Blood glucose is mildly elevated to 219. Normal bicarb. No anion gap. Stable electrolytes. Lactic acid initially elevated to 2.7. Fluids ongoing. Will continue to monitor. Magnesium was noted to be low at 1.1. 2 g of magnesium sulfate were ordered. CK also minimally elevated to 218. Urine consistent with infection with positive nitrate, 21-50 WBC, 4+ urine bacteria. Sent for culture. Blood cultures were also obtained. Will be started on Rocephin. Most recent positive urine culture grew out E coli which was sensitive to Rocephin. This was started in the ED. Viral swabs were negative. CT brain without acute intracranial abnormalities. Chest x-ray with mild pulmonary edema/pulmonary vascular congestion. BNP was obtained and minimally elevated to around 1000. Patient is meeting sepsis criteria based on initial VS/leukocytosis/UTI/elev lactic. Will be admitted for further evaluation of altered mental status, UTI, electrolyte management. Discussed case with Payton Yip [employer]'S ENGINEER hospitalist, accepted patient for admission. Patient's family updated on care plan and need for admission, in agreement with plan. <Courtney Huggins PA-C - Last Filed: 05/11/24 19:20> Medical Records Attestation: I reviewed the patient's medical records. <Courtney Huggins PA-C - Last Filed: 05/11/24 19:20> Lab Data Attestation: I reviewed the patient's lab results. <Courtney Huggins PA-C - Last Filed: 05/11/24 19:20> Result diagrams: 05/11/24 15:44 05/11/24 15:44 <Courtney Huggins PA-C - Last Filed: 05/11/24 19:20> Labs: Lab Results 05/11/24 05/11/24 05/11/24 Range/Units 15:43 15:44 15:44 WBC 14.0 H (4.5-10.0) K/mm3 RBC 3.50 L (4.2-5.4) M/mm3 Hgb 10.8 L (12.0-15.0) g/dL Hct 32.9 L (37.0-47.0) % MCV 94.0 (80-100) fl MCH 30.9 (26-34) pg MCHC 32.8 (32-36) g/dl RDW 15.2 H (11.5-14.5) % Plt Count 325 (150-375) k/mm3 MPV 8.7 (7.4-10.4) fl Immature Gran % (Auto) 0.7 H (0-0.5) % Neut % (Auto) 88.3 H (45.5-73.1) % Lymph % (Auto) 6.9 L (18.3-44.2) % [place] % (Auto) 3.6 (2.6-8.5) % Eos % (Auto) 0.1 (0-4.4) % Baso % (Auto) 0.4 (0.2-1.2) % Lymph # (Auto) 0.96 (0.9-3.2) K/mm3 [place] # (Auto) 0.5 (0.1-0.6) K/mm3 Eos # (Auto) 0.0 (0-0.3) K/mm3 Baso # (Auto) 0.1 (0.0-0.1) K/mm3 Abs Immat Gran (auto) 0.10 H (0.00-0.031) K/mm3 Absolute Neuts (auto) 12.4 H (1.3-6.7) K/mm3 Absolute Nucleated RBC 0.000 (0.0-0.012) K/mm3 Nucleated RBC % 0.0 (0.0-0.2) % Methemoglobin (0-1.5) %THb Sodium 133 L (137-145) mmol/L Potassium 3.4 (3.4-5.0) mmol/L Chloride 99 (98-107) mmol/L Carbon Dioxide 25 (22-30) mmol/L Anion Gap 9 (4-12) mmol/L BUN 14 (7-17) mg/dL Creatinine 1.00 (0.7-1.0) mg/dL Estim Creat Clear Calc Not Reportable Estimated GFR 52 L (59 - ) Glucose 219 H (65-110) mg/dL Lactic Acid 2.7 H (0.7-2.0) mmol/L Calcium 8.5 (8.4-10.2) mg/dL Magnesium 1.1 L Cancelled (1.6-2.3) mg/dL Total Bilirubin 0.5 (0.2-1.3) mg/dL AST 25 (14-36) U/L ALT 14 (6-35) U/L Alkaline Phosphatase 109 (38-126) U/L Total Creatine Kinase 219 H (30-135) U/L NT-Pro-B Natriuret Pep 1050 H (19.9-100) pg/mL Total Protein 7.0 (6.3-8.2) g/dL Albumin 3.8 (3.5-5.1) g/dL Urine Color (Yellow) Urine Appearance (Clear) Urine pH (5.0-9.0) Ur Specific [place] (1.001-1.035) Urine Protein (Negative) mg/dL Urine Glucose (UA) (Negative) mg/dL Urine Ketones (Negative) mg/dL Ur Blood (Man) (Negative) Urine Nitrate (Negative) Urine Bilirubin (Negative) Urine Urobilinogen (<2.0) mg/dL Leukocyte Esterase Rfl (Negative) EDU/UL Urine RBC (0-2) /hpf Urine WBC (0-3) /hpf Ur Squamous Epith Cells (Few) /hpf Urine Bacteria /hpf Urine Casts Influenza A (RT-PCR) Negative (Negative) Influenza B (RT-PCR) Negative (Negative) RSV (RT-PCR) Negative (Negative) SARS-CoV-2 RNA (RT-PCR) Negative (Negative) 05/11/24 05/11/24 Range/Units 16:00 18:22 WBC (4.5-10.0) K/mm3 RBC (4.2-5.4) M/mm3 Hgb (12.0-15.0) g/dL Hct (37.0-47.0) % MCV (80-100) fl MCH (26-34) pg MCHC (32-36) g/dl RDW (11.5-14.5) % Plt Count (150-375) k/mm3 MPV (7.4-10.4) fl Immature Gran % (Auto) (0-0.5) % Neut % (Auto) (45.5-73.1) % Lymph % (Auto) (18.3-44.2) % [place] % (Auto) (2.6-8.5) % Eos % (Auto) (0-4.4) % Baso % (Auto) (0.2-1.2) % Lymph # (Auto) (0.9-3.2) K/mm3 [place] # (Auto) (0.1-0.6) K/mm3 Eos # (Auto) (0-0.3) K/mm3 Baso # (Auto) (0.0-0.1) K/mm3 Abs Immat Gran (auto) (0.00-0.031) K/mm3 Absolute Neuts (auto) (1.3-6.7) K/mm3 Absolute Nucleated RBC (0.0-0.012) K/mm3 Nucleated RBC % (0.0-0.2) % Methemoglobin 0.3 (0-1.5) %THb Sodium (137-145) mmol/L Potassium (3.4-5.0) mmol/L Chloride (98-107) mmol/L Carbon Dioxide (22-30) mmol/L Anion Gap (4-12) mmol/L BUN (7-17) mg/dL Creatinine (0.7-1.0) mg/dL Estim Creat Clear Calc Estimated GFR (59 - ) Glucose (65-110) mg/dL Lactic Acid (0.7-2.0) mmol/L Calcium (8.4-10.2) mg/dL Magnesium (1.6-2.3) mg/dL Total Bilirubin (0.2-1.3) mg/dL AST (14-36) U/L ALT (6-35) U/L Alkaline Phosphatase (38-126) U/L Total Creatine Kinase (30-135) U/L NT-Pro-B Natriuret Pep (19.9-100) pg/mL Total Protein (6.3-8.2) g/dL Albumin (3.5-5.1) g/dL Urine Color Yellow (Yellow) Urine Appearance Clear (Clear) Urine pH 5.5 (5.0-9.0) Ur Specific [place] 1.015 (1.001-1.035) Urine Protein 1+ H (Negative) mg/dL Urine Glucose (UA) Trace H (Negative) mg/dL Urine Ketones 1+ H (Negative) mg/dL Ur Blood (Man) 1+ H (Negative) Urine Nitrate Positive H (Negative) Urine Bilirubin Negative (Negative) Urine Urobilinogen 0.2 (<2.0) mg/dL Leukocyte Esterase Rfl 1+ H (Negative) EDU/UL Urine RBC 0-2 (0-2) /hpf Urine WBC 21-50 H (0-3) /hpf Ur Squamous Epith Cells None seen (Few) /hpf Urine Bacteria 4+ H /hpf Urine Casts 0-2 Influenza A (RT-PCR) (Negative) Influenza B (RT-PCR) (Negative) RSV (RT-PCR) (Negative) SARS-CoV-2 RNA (RT-PCR) (Negative) <Courtney Huggins PA-C - Last Filed: 05/11/24 19:20> Lab Results 05/11/24 05/11/24 05/11/24 Range/Units 15:43 15:44 15:44 WBC 14.0 H (4.5-10.0) K/mm3 RBC 3.50 L (4.2-5.4) M/mm3 Hgb 10.8 L (12.0-15.0) g/dL Hct 32.9 L (37.0-47.0) % MCV 94.0 (80-100) fl MCH 30.9 (26-34) pg MCHC 32.8 (32-36) g/dl RDW 15.2 H (11.5-14.5) % Plt Count 325 (150-375) k/mm3 MPV 8.7 (7.4-10.4) fl Immature Gran % (Auto) 0.7 H (0-0.5) % Neut % (Auto) 88.3 H (45.5-73.1) % Lymph % (Auto) 6.9 L (18.3-44.2) % [place] % (Auto) 3.6 (2.6-8.5) % Eos % (Auto) 0.1 (0-4.4) % Baso % (Auto) 0.4 (0.2-1.2) % Lymph # (Auto) 0.96 (0.9-3.2) K/mm3 [place] # (Auto) 0.5 (0.1-0.6) K/mm3 Eos # (Auto) 0.0 (0-0.3) K/mm3 Baso # (Auto) 0.1 (0.0-0.1) K/mm3 Abs Immat Gran (auto) 0.10 H (0.00-0.031) K/mm3 Absolute Neuts (auto) 12.4 H (1.3-6.7) K/mm3 Absolute Nucleated RBC 0.000 (0.0-0.012) K/mm3 Nucleated RBC % 0.0 (0.0-0.2) % Methemoglobin (0-1.5) %THb Sodium 133 L (137-145) mmol/L Potassium 3.4 (3.4-5.0) mmol/L Chloride 99 (98-107) mmol/L Carbon Dioxide 25 (22-30) mmol/L Anion Gap 9 (4-12) mmol/L BUN 14 (7-17) mg/dL Creatinine 1.00 (0.7-1.0) mg/dL Estim Creat Clear Calc Not Reportable Estimated GFR 52 L (59 - ) Glucose 219 H (65-110) mg/dL Lactic Acid 2.7 H (0.7-2.0) mmol/L Calcium 8.5 (8.4-10.2) mg/dL Magnesium 1.1 L Cancelled (1.6-2.3) mg/dL Total Bilirubin 0.5 (0.2-1.3) mg/dL AST 25 (14-36) U/L ALT 14 (6-35) U/L Alkaline Phosphatase 109 (38-126) U/L Total Creatine Kinase 219 H (30-135) U/L NT-Pro-B Natriuret Pep 1050 H (19.9-100) pg/mL Total Protein 7.0 (6.3-8.2) g/dL Albumin 3.8 (3.5-5.1) g/dL Urine Color (Yellow) Urine Appearance (Clear) Urine pH (5.0-9.0) Ur Specific [place] (1.001-1.035) Urine Protein (Negative) mg/dL Urine Glucose (UA) (Negative) mg/dL Urine Ketones (Negative) mg/dL Ur Blood (Man) (Negative) Urine Nitrate (Negative) Urine Bilirubin (Negative) Urine Urobilinogen (<2.0) mg/dL Leukocyte Esterase Rfl (Negative) EDU/UL Urine RBC (0-2) /hpf Urine WBC (0-3) /hpf Ur Squamous Epith Cells (Few) /hpf Urine Bacteria /hpf Urine Casts Influenza A (RT-PCR) Negative (Negative) Influenza B (RT-PCR) Negative (Negative) RSV (RT-PCR) Negative (Negative) SARS-CoV-2 RNA (RT-PCR) Negative (Negative) 05/11/24 05/11/24 Range/Units 16:00 18:22 WBC (4.5-10.0) K/mm3 RBC (4.2-5.4) M/mm3 Hgb (12.0-15.0) g/dL Hct (37.0-47.0) % MCV (80-100) fl MCH (26-34) pg MCHC (32-36) g/dl RDW (11.5-14.5) % Plt Count (150-375) k/mm3 MPV (7.4-10.4) fl Immature Gran % (Auto) (0-0.5) % Neut % (Auto) (45.5-73.1) % Lymph % (Auto) (18.3-44.2) % [place] % (Auto) (2.6-8.5) % Eos % (Auto) (0-4.4) % Baso % (Auto) (0.2-1.2) % Lymph # (Auto) (0.9-3.2) K/mm3 [place] # (Auto) (0.1-0.6) K/mm3 Eos # (Auto) (0-0.3) K/mm3 Baso # (Auto) (0.0-0.1) K/mm3 Abs Immat Gran (auto) (0.00-0.031) K/mm3 Absolute Neuts (auto) (1.3-6.7) K/mm3 Absolute Nucleated RBC (0.0-0.012) K/mm3 Nucleated RBC % (0.0-0.2) % Methemoglobin 0.3 (0-1.5) %THb Sodium (137-145) mmol/L Potassium (3.4-5.0) mmol/L Chloride (98-107) mmol/L Carbon Dioxide (22-30) mmol/L Anion Gap (4-12) mmol/L BUN (7-17) mg/dL Creatinine (0.7-1.0) mg/dL Estim Creat Clear Calc Estimated GFR (59 - ) Glucose (65-110) mg/dL Lactic Acid (0.7-2.0) mmol/L Calcium (8.4-10.2) mg/dL Magnesium (1.6-2.3) mg/dL Total Bilirubin (0.2-1.3) mg/dL AST (14-36) U/L ALT (6-35) U/L Alkaline Phosphatase (38-126) U/L Total Creatine Kinase (30-135) U/L NT-Pro-B Natriuret Pep (19.9-100) pg/mL Total Protein (6.3-8.2) g/dL Albumin (3.5-5.1) g/dL Urine Color Yellow (Yellow) Urine Appearance Clear (Clear) Urine pH 5.5 (5.0-9.0) Ur Specific [place] 1.015 (1.001-1.035) Urine Protein 1+ H (Negative) mg/dL Urine Glucose (UA) Trace H (Negative) mg/dL Urine Ketones 1+ H (Negative) mg/dL Ur Blood (Man) 1+ H (Negative) Urine Nitrate Positive H (Negative) Urine Bilirubin Negative (Negative) Urine Urobilinogen 0.2 (<2.0) mg/dL Leukocyte Esterase Rfl 1+ H (Negative) EDU/UL Urine RBC 0-2 (0-2) /hpf Urine WBC 21-50 H (0-3) /hpf Ur Squamous Epith Cells None seen (Few) /hpf Urine Bacteria 4+ H /hpf Urine Casts 0-2 Influenza A (RT-PCR) (Negative) Influenza B (RT-PCR) (Negative) RSV (RT-PCR) (Negative) SARS-CoV-2 RNA (RT-PCR) (Negative) <Ilia Verdugo MD - Last Filed: 05/11/24 22:43> ABG Data ABG results: 05/11/24 18:22 Puncture Site Right brachial ABG pH 7.430 ABG pCO2 35.7 ABG pO2 83.2 ABG PO2/FiO2 Ratio 2.60 ABG HCO3 23.2 ABG O2 Saturation 96.5 ABG O2 Content 15.1 L ABG Base Excess -0.8 A-a Gradient 103.2 Oxyhemoglobin 96.0 Carboxyhemoglobin 0.1 Reduced Hemoglobin 3.6 Total Hemoglobin 11.1 L O2 Delivery Device Nasal cannula O2 Liters/Min 3.0 FiO2 32 <Courtney Huggins PA-C - Last Filed: 05/11/24 19:20> 05/11/24 18:22 Puncture Site Right brachial ABG pH 7.430 ABG pCO2 35.7 ABG pO2 83.2 ABG PO2/FiO2 Ratio 2.60 ABG HCO3 23.2 ABG O2 Saturation 96.5 ABG O2 Content 15.1 L ABG Base Excess -0.8 A-a Gradient 103.2 Oxyhemoglobin 96.0 Carboxyhemoglobin 0.1 Reduced Hemoglobin 3.6 Total Hemoglobin 11.1 L O2 Delivery Device Nasal cannula O2 Liters/Min 3.0 FiO2 32 <Ilia Verdugo MD - Last Filed: 05/11/24 22:43> Attestation: I personally reviewed and interpreted this ABG as follows: <Courtney Huggins PA-C - Last Filed: 05/11/24 19:20> Imaging Data Attestation: I personally reviewed and interpreted this imaging study as follows: <Courtney Huggins PA-C - Last Filed: 05/11/24 19:20> Radiologist's impression: ITS Impressions Head CT 05/11/24 15:18 IMPRESSION: Old right temporal of occipital infarcts Cerebral atherosclerosis and chronic small vessel ischemic changes of the cerebral white matter No acute intracranial finding or significant change since 06/18/2023 Chest X-Ray 05/11/24 15:35 IMPRESSION: <Courtney Huggins PA-C - Last Filed: 05/11/24 19:20> ECG Data EKG #1: Attestation: I personally reviewed and interpreted this ECG as follows: <Courtney Huggins PA-C - Last Filed: 05/11/24 19:20> ECG completion date: 05/11/24 <Courtney Huggins PA-C - Last Filed: 05/11/24 19:20> ECG completion time: 15:41 <Courtney Huggins PA-C - Last Filed: 05/11/24 19:20> EKG Interpretation: tachycardia (122), atrial fibrillation, non-specific ST changes and RBBB <Courtney Huggins PA-C - Last Filed: 05/11/24 19:20> Critical Care Time Critical Care Time Critical Care Time: Yes <Ilia Verdugo MD - Last Filed: 05/11/24 22:43> Total Critical Care Time: 35 <Ilia Verdugo MD - Last Filed: 05/11/24 22:43> Discharge Plan Discharge Clinical Impression: Lactic acidosis, Hypomagnesemia, Acute hypoxic respiratory failure Sepsis Qualifiers: Sepsis type: sepsis due to unspecified organism Sepsis acute organ dysfunction status: unspecified Qualified Code(s): A41.9 - Sepsis, unspecified organism UTI (urinary tract infection) Qualifiers: Urinary tract infection type: acute cystitis Hematuria presence: without h ematuria Qualified Code(s): N30.00 - Acute cystitis without hematuria Altered mental status Qualifiers: Altered mental status type: unspecified Qualified Code(s): R41.82 - Altered mental status, unspecified <Courtney Huggins PA-C - Last Filed: 05/11/24 19:20> Patient Disposition: Still a Patient <Courtney Huggins PA-C - Last Filed: 05/11/24 19:20> Condition: Stable <Courtney Huggins PA-C - Last Filed: 05/11/24 19:20>
[2024-05-11 14:41] VITALS: BP 199/106; PULSE 132; RESP 20; TEMP 36.9; O2SAT 88
[2024-05-11 14:52] VITALS: O2SAT 92
[2024-05-11 15:51] LABS: Basophils Absolute Auto 0.1 K/mm3 (0.0-0.1); Basophils Percent Auto 0.4 % (0.2-1.2); Eosinophils Percent Auto 0.1 % (0-4.4); Hematocrit 32.9 % (37.0-47.0); Hemoglobin 10.8 g/dL (12.0-15.0); Immature Granulocyte Percent A 0.7 % (0-0.5); Lymphocytes Absolute Auto 0.96 K/mm3 (0.9-3.2); Lymphocytes Percent Auto 6.9 % (18.3-44.2); Mean Corpuscular HGB Conc 32.8 g/dl (32-36); Mean Corpuscular Hemoglobin 30.9 pg (26-34); Mean Platelet Volume 8.7 fl (7.4-10.4); Monocytes Absolute Auto 0.5 K/mm3 (0.1-0.6); Monocytes Percent Auto 3.6 % (2.6-8.5); Neutrophils Absolute Auto 12.4 K/mm3 (1.3-6.7); Neutrophils Percent Auto 88.3 % (45.5-73.1); Platelet Count Result 325 k/mm3 (150-375); Red Cell Distribution Width 15.2 % (11.5-14.5)
[2024-05-11] MEDS: SODIUM CHLORIDE 0.9% IV 1,000 ML 999 ML IV CONT ×2 (15:59→18:53)
[2024-05-11] MEDS: LORazepam INJ (*CRX) 2 MG/ML VIAL 0.5 MG IV PUSH (16:00)
[2024-05-11 16:02] LABS: Alanine Aminotransferase 14 U/L (6-35); Albumin Level 3.8 g/dL (3.5-5.1); Alkaline Phosphatase 109 U/L (38-126); Anion Gap 9 mmol/L (4-12); Aspartate Amino Transferase 25 U/L (14-36); Bilirubin,Total 0.5 mg/dL (0.2-1.3); Blood Urea Nitrogen 14 mg/dL (7-17); Calcium 8.5 mg/dL (8.4-10.2); Carbon Dioxide 25 mmol/L (22-30); Chloride 99 mmol/L (98-107); Creatine Kinase 219 U/L (30-135); Estimated Glomerular Filt Rate 52; Glucose 219 mg/dL (65-110); Magnesium 1.1 mg/dL (1.6-2.3); Potassium 3.4 mmol/L (3.4-5.0); Sodium 133 mmol/L (137-145)
[2024-05-11 16:14] LABS: Lactic Acid Reflex 2.7 mmol/L (0.7-2.0)
[2024-05-11 16:14] LABS: Add Urine Microscopic? YES; Appearance Urine Clear (Clear); Bacteria Urine 4+ /hpf; Bilirubin Urine Negative (Negative); Blood Urine 1+ (Negative); Color Urine Yellow (Yellow); Glucose Urine UA Trace mg/dL (Negative); Ketones Urine 1+ mg/dL (Negative); Leukocyte Esterase Ur 1+ LEU/UL (Negative); Nitrate Urine Positive (Negative); Non Pathogenic Casts 0-2; Protein Urine 1+ mg/dL (Negative); RBC Urine 0-2 /hpf (0-2); Specific Grav Ur 1.015 (1.001-1.035); Squamous Epithelial Cell Urine None Seen /hpf (Few); Urobilinogen Urine 0.2 mg/dL (<2.0); WBC Urine 21-50 /hpf (0-3); pH Urine 5.5 (5.0-9.0)
[2024-05-11 16:28] LABS: Influenza A QL RT-PCR Negative (Negative); Influenza B QL RT-PCR Negative (Negative); RSV RNA, RT-PCR Negative (Negative); SARS-CoV-2 RNA PCR Negative (Negative)
[2024-05-11 16:54] VITALS: PULSE 115
[2024-05-11] MEDS: MECLIZINE HCL 25 MG TABLET PO (16:54)
[2024-05-11] MEDS: METOPROLOL TARTRATE INJ 5 MG/5 ML VIAL IV PUSH (16:54)
[2024-05-11] MEDS: MAGNESIUM SULF 2 GM/WATER 50ML 2 GM/50 ML BAG IVPB (16:54)
--- NOTE | 2024-05-11 17:09 | PC.NURSE ---
not ABLE TO OBTAIN GOOD o2SAT DUE TO PT VERY AGITATES AND RESTLESS AND PULING ALL THE WIRES. PULLING bp, CARDIAC AND O2 SAT MONITORS.
[2024-05-11 17:11] VITALS: BP 127/106; PULSE 96; RESP 22; O2SAT 98
[2024-05-11 17:43] LABS: NT Pro B Type Natriuretic Pept 1050 pg/mL (19.9-100)
[2024-05-11 18:37] LABS: Alveolar/Arterial O2 Gradient 103.2 mmHg; Base Excess ABG -0.8 mEq/l (+/-2.0); Carboxyhemoglobin 0.1 % THb (0-2.0); Fractional Inspired Oxygen 32 %; HCO3 ABG 23.2 mEq/l (22.0-26.0); Methemoglobin ABG 0.3 %THb (0-1.5); Oxygen Content ABG 15.1 %vol (16.0-22.0); Oxygen Saturation ABG 96.5 % (95.0-100.0); PCO2 ABG 35.7 mmHg (35.0-45.0); PO2 ABG 83.2 mmHg (80.0-100.0); Reduced Hemoglobin 3.6 %THb (0-5.0); Total Hemoglobin 11.1 g/dL (12.0-18.0)
[2024-05-11 18:39] LABS: Device NASAL CANNULA; Site Drawn RIGHT BRACHIAL
[2024-05-11 18:49] LABS: Reflex Lactic Acid Yes or No Add Lactic
[2024-05-11 20:45] VITALS: BMI 43.6
[2024-05-11] MEDS: LEVALBUTEROL NEB 1.25 MG/3 ML 2.5 MG INHALATION (20:48)
--- NOTE | 2024-05-11 20:48 | P.HP_ITS ---
H&P: HPI History of Present Illness Date/Time: 05/11/24 20:48 Chief Complaint: Acute Confusion Narrative: 81-year-old female with a past medical history of type 2 diabetes mellitus, essential hypertension, coronary artery disease, hyperlipidemia, GERD, CVA, chronic kidney disease, and overactive bladder with recent UTI in November who presented to the ER via EMS with confusion. The patient arrived to the ER alert orient x1 and was agitated and restless. She received 0.5 mg of Ativan in the ER. She reportedly became acutely confused today with significant agitation and restlessness. Patient was not able to provide any information for history in the ER. She was noted to be tachycardic in the ER in EKG demonstrated an irregular tachy arrhythmia with baseline artifact affecting quality of EKG interpretation. Possibly sinus arrhythmia with tachycardia verses AFib. Labs in the ER demonstrated white count 14 magnesium of 1.1 and patient received 2 g magnesium sulfate rider. She was hyperglycemic with glucoses in the upper 200s. Chest x-ray demonstrated cardiomegaly, pulmonary vascular congestion possible fluid in the minor fissure differential including mild CHF versus infiltrate or atelectasis of the lower lung. CT of brain demonstrated 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 But no acute process. UA was consistent with UTI. Patient did have some lactic acidosis. She received 2 L of IV fluid bolus. Patient was tachycardic in the ER but had also received albuterol and Atrovent nebulizers. She received 5 mg of IV Lopressor and is now in a bradycardic rhythm. The patient will open her eyes when her name is called but will not follow commands. She is actively pulling at medical equipment and trying to show of staff members away when they were trying to provide care. The patient's 2 sons are at bedside and provide all the history besides what I was able to obtain from past medical records. The patient lives in her own home and her great grandson lives with her. The patient can usually ambulate with her walker. Her son takes care of all of her bills. They state that she is usually alert and oriented. But they state that she is forgetful but they feel that that is not unusual since they themselves are forgetful. She does have a history of frequent UTIs. She evidently did not communicate any complaints. She was noted to be wheezing significantly when I arrived in the room. Family denies having history of COPD. She did have an oxygen requirement of 2 L after de satting 80% in the ER. Patient is fighting the nasal cannula keep trying to pull it out. At the time my evaluation are requested patient have a repeat ABG was was stable. Her respiratory status improved after she received a DuoNeb. However this was also at the same time that a Bennett catheter was placed and she received Zyprexa. She currently seems much more relaxed after these interventions. Patient has a short neck and an extremely large neck circumference. The family states they do not think patient is ever been tested for sleep apnea. She is usually sits up in a recliner to sleep at all times. They report she does not tolerate trying to lay down and has not done so for many years. The family reports that on occasion the patient will see visual hallucinations. Although t hey think it is been sometime since she last had some hallucinations. Her episodes of hallucination may have been associated with an infection but they cannot recall. Review of Systems Review of Systems: 12 systems were reviewed with pertinent positives and negatives per HPI. Except as documented in the HPI, all other systems were reviewed and are negative. REPLACED BY [facility] Past Medical History Medical History (Updated 05/12/24 @ 01:22 by Tatum Newberry DO) Anxiety disorder, unspecified Atherosclerotic heart disease of [place] coronary artery with unspecified angina pectoris Chronic kidney disease (CKD) stage G3b/A2, moderately decreased glomerular filtration rate (GFR) between 30-44 mL/min/1.73 square meter and albuminuria creatinine ratio between 30-299 mg/g Chronic sinusitis, unspecified Essential hypertension Gastro-esophageal reflux disease without esophagitis History of ischemic cerebrovascular accident (CVA) with residual deficit Hyperlipidemia, unspecified Hyponatremia Osteoarthritis Overactive bladder Type 2 diabetes mellitus with hyperglycemia, with long-term current use of insul in Unspecified asthma, uncomplicated Surgical History Surgical History History of tonsillectomy and adenoidectomy History of umbilical hernia repair 08/2010 Family History Family History Other Cerebrovascular accident Diabetes mellitus Family history of arthritis Family history of cardiovascular disease Family history of congestive heart failure Family history of hearing loss Family history of lung cancer Family history of lung disease Family history of mental disorder Family history of obesity Family history of osteoporosis Hypertension Social History Social History (Updated 05/12/24 @ 00:51 by Tatum Newberry DO) Social History: The patient lives in her own home her great grandson lives with her. One of her sons lives a few houses down from the patient. The patient has 2 sons who are both at bedside. She ambulates with a Rollator. Code status: DNR/DNI Surrogate decision maker: Don (son) Smoking status: Never smoker Alcohol intake: never Substance use: never Do You Feel Safe in your Home?: Yes Lack of Transportation: No Lack of Food: Never True Current Housing: I Have Housing Concerned About Future Housing: No Difficulty Paying Gas/Electric Bills: YES Difficulty Paying for Meds: YES Currently Unemployed: YES Education: High School Diploma/GED Difficulty w/ Childcare or Family Care: No Living arrangements: with family Occupation/Education: retired Gender identity (if verbalized by the patient): Female Sexual Orientation (if Verbalized by the Patient): Straight or Heterosexual Spiritual care concerns: No Meds Home Medications and Allergies Home Medications Medication Instructions Recorded Confirmed Type albuterol sulfate 90 mcg/actuation 1 inhalation inhalation Q4H PRN 07/08/19 05/11/24 History aerosol inhaler (Proventil HFA) sob/wheezing loratadine 10 mg tablet (Claritin) 10 mg PO DAILY 07/08/19 05/11/24 History acetaminophen 325 mg capsule 325 mg PO Q6H PRN Pain 04/02/20 05/11/24 History (Tylenol) docusate sodium 100 mg capsule 100 mg PO DAILY 04/02/20 05/11/24 History sodium chloride 0.65 % nasal spray 2 spray intranasal QID PRN dryness 04/02/20 05/11/24 History aerosol (Saline Mist) aspirin 81 mg tablet,delayed 81 mg PO DAILY #30 tabs 05/15/23 05/11/24 Rx release guaifenesin 600 mg tablet, 600 mg PO BID PRN congestion #180 05/15/23 05/11/24 Rx extended release 12 hr (Mucinex) tabs ketoconazole 2 % topical cream 1 applic topical BID #60 grams 11/20/23 05/11/24 Rx triamcinolone acetonide 0.1 % 1 applic topical BID #453.6 grams 11/20/23 05/11/24 Rx topical cream alcohol swabs 1 pad topical .twice daily #200 ea 12/14/23 05/11/24 Rx blood sugar diagnostic (FreeStyle #300 ea 12/14/23 05/11/24 Rx Lite Strips) pen needle, diabetic 32 gauge x #200 ea 12/14/23 05/11/24 Rx 5/32 (BD Ultra-Fine Nelda Pen Needle) furosemide 20 mg tablet 20 mg PO DAILY PRN swelling #20 03/06/24 05/11/24 Rx tabs losartan 50 mg tablet 50 mg PO DAILY 30 days #30 tabs 03/18/24 05/11/24 Rx diltiazem HCl 300 mg 300 mg PO DAILY #90 caps 03/25/24 05/11/24 Rx capsule,extended release 24 hr (Cartia XT) azelastine 137 mcg (0.1 %) nasal 137 mcg (0.137 mL) intranasal Q12H 03/31/24 05/11/24 Rx spray #90 mL metoprolol tartrate 25 mg tablet 12.5 mg PO BID #30 tabs 04/11/24 05/11/24 Rx famotidine 20 mg tablet (Acid 20 mg PO QHS #90 tabs 04/15/24 05/11/24 Rx Stone Cleaner (famotidine)) fluticasone propionate 50 1 spray intranasal PRN PRN 05/11/24 05/11/24 History mcg/actuation nasal allergies spray,suspension hydroxyzine HCl 25 mg tablet 25 mg PO Q6-8H PRN Anxiety 05/11/24 05/11/24 History insulin lispro protamine-lispro 16 unit subcut BID 05/11/24 05/11/24 History 100 unit/mL (75-25) subcutaneous pen (Humalog Mix 75-25 KwikPen) isosorbide mononitrate 60 mg 60 mg PO DAILY 05/11/24 05/11/24 History tablet,extended release 24 hr nystatin 100,000 unit/gram topical 1 applic topical PRN PRN irritation 05/11/24 05/11/24 History powder omeprazole 20 mg capsule,delayed 20 mg PO DAILY 05/11/24 05/11/24 History release ursodiol 250 mg tablet 250 mg PO BID 05/11/24 05/11/24 History Allergies Allergy/AdvReac Type Severity Reaction Status Date / Time amlodipine Allergy Unknown TIRED, Unverified 05/11/24 16:43 FATIGUE,Diarrhea azithromycin Allergy Unknown ??RASH,Hive Unverified 05/11/24 16:43 s canagliflozin Allergy Unknown Itching Verified 05/11/24 16:43 cefuroxime Allergy Unknown Nausea and Verified 05/11/24 16:43 Vomiting celecoxib Allergy Unknown ?? Unverified 05/11/24 16:43 REACTION,Diarrhea doxycycline Allergy Unknown Nausea and Unverified 05/11/24 16:43 Vomiting,Diarrhea ezetimibe Allergy Unknown Anaphylactic Unverified 05/11/24 16:43 Shock,Anaphylactic Shock fluconazole Allergy Unknown Nausea and Verified 05/11/24 16:43 Vomiting guaifenesin Allergy Unknown Rash Verified 05/11/24 16:43 hydrochlorothiazide Allergy Unknown ???REACTION Unverified 05/11/24 16:43 ,Diarrhea levofloxacin Allergy Unknown Rash Verified 05/11/24 16:43 metronidazole Allergy Unknown ??REACTION, Unverified 05/11/24 16:43 Diarrhea nisoldipine Allergy Unknown Rash Verified 05/11/24 16:43 Penicillins Allergy Unknown ??RASH,Diar Unverified 05/11/24 16:43 marco phenylephrine Allergy Unknown Rash Verified 05/11/24 16:43 phenylpropanolamine Allergy Unknown Rash Verified 05/11/24 16:43 pravastatin Allergy Unknown ??REACTION, Unverified 05/11/24 16:43 Diarrhea rosuvastatin Allergy Unknown Diarrhea Verified 05/11/24 16:43 simvastatin Allergy Unknown Anaphylactic Unverified 05/11/24 16:43 Shock,Anaphylactic Shock Sulfa (Sulfonamide Allergy Unknown RASH???,Sammie Unverified 05/11/24 16:43 Antibiotics) rrhea terconazole Allergy Unknown ??RASH Verified 05/11/24 16:43 tetracycline Allergy Unknown ??RASH Verified 05/11/24 16:43 valsartan Allergy Unknown ???REACTION Unverified 05/11/24 16:43 ,Diarrhea Contrast Media Allergy Unknown Rash Uncoded 05/11/24 16:43 CRESTOR Allergy Unknown ??REACTION Uncoded 05/11/24 16:43 ETHER Allergy Unknown DOES NOT Uncoded 05/11/24 16:43 REMEMBER NKFA Allergy Unknown Not Uncoded 05/11/24 16:43 Entered,Diarrhea RADIOPAQUECONTR Allergy Unknown FEET Uncoded 05/11/24 16:43 RASH,ITCHING Vital Signs Vital Signs - 24 hr 05/11/24 14:41 05/11/24 14:52 05/11/24 16:54 Temperature 98.5 F Pulse Rate 132 H 115 H Respiratory Rate 20 Blood Pressure 199/106 H Pulse Oximetry 88 L 92 Oxygen Delivery Room Air Nasal Cannula Oxygen Flow Rate 2 05/11/24 17:11 Temperature Pulse Rate 96 Respiratory Rate 22 H Blood Pressure 127/106 H Pulse Oximetry 98 Oxygen Delivery Oxygen Flow Rate Exam Narrative: Weight 98 kg BMI 43.6 Const: Other: Morbidly obese, elderly, acute distress acutely ill-appearing HENMT: Other: Mucous membranes are dry, crowded posterior oropharynx, unable to completely visualize posterior oropharynx Eyes: Other: Conjunctival pallor, no scleral icterus, pupils are equal and reactive with evidence of bilateral lens replacement Neck: Other: Unable to assess for JVD due to body habitus, short neck, large neck circumference Resp: Other: Diffuse wheezing bilaterally, marked tachypnea, shallow respirations, accessory muscle use Cardio: Other: Sinus tachycardia, 2+ bilateral radial pulses GI: Other: Obese, Diffusely distended, somewhat firm, seems to be tender as the patient starts shoving my hands away when I am trying to evaluate, normoactive bowel sounds : Other: Patient had only small amount of cloudy somewhat dark urine in the VAC canister on with pure wick. Bladder scan demonstrated greater than 500 in retention. Bennett catheter was placed with immediate return of approximately 500 mL of director product yellow urine that appeared clear Skin: Other: Hot to touch, non jaundice, no pallor, chronic skin changes lower extremities, numerous papules, pigmented and non pigmented, seborrheic dermatitis and other skin irregularities Neuro: Other: Patient is responsive to her name, localizes to pain and actively fights staff in giving care, no obvious facial asymmetry, the patient did not speak well as in the room could so I could not assess speech or fluency Extrem: Other: No cyanosis, no edema, chronic lower extremity skin changes, 5/5 strength bilateral impersonator character Psych: Other: Restless, confused, encephalopathic, uncooperative H&P: Results Labs Labs: Laboratory Tests 05/11/24 15:44 05/11/24 15:44 05/11/24 05/11/24 05/11/24 15:43 15:44 15:44 WBC 14.0 H RBC 3.50 L Hgb 10.8 L Hct 32.9 L MCV 94.0 MCH 30.9 MCHC 32.8 RDW 15.2 H Plt Count 325 MPV 8.7 Immature Gran % (Auto) 0.7 H Neut % (Auto) 88.3 H Lymph % (Auto) 6.9 L [place] % (Auto) 3.6 Eos % (Auto) 0.1 Baso % (Auto) 0.4 Lymph # (Auto) 0.96 [place] # (Auto) 0.5 Eos # (Auto) 0.0 Baso # (Auto) 0.1 Abs Immat Gran (auto) 0.10 H Absolute Neuts (auto) 12.4 H Absolute Nucleated RBC 0.000 Nucleated RBC % 0.0 Puncture Site ABG pH ABG pCO2 ABG pO2 ABG PO2/FiO2 Ratio ABG HCO3 ABG O2 Saturation ABG O2 Content ABG Base Excess A-a Gradient Oxyhemoglobin Carboxyhemoglobin Methemoglobin Reduced Hemoglobin Total Hemoglobin O2 Delivery Device O2 Liters/Min FiO2 Sodium 133 L Potassium 3.4 Chloride 99 Carbon Dioxide 25 Anion Gap 9 BUN 14 Creatinine 1.00 Estim Creat Clear Calc Not Reportable Estimated GFR 52 L Glucose 219 H Lactic Acid 2.7 H Calcium 8.5 Magnesium 1.1 L Cancelled Total Bilirubin 0.5 AST 25 ALT 14 Alkaline Phosphatase 109 Total Creatine Kinase 219 H NT-Pro-B Natriuret Pep 1050 H Total Protein 7.0 Albumin 3.8 Urine Color Urine Appearance Urine pH Ur Specific [place] Urine Protein Urine Glucose (UA) Urine Ketones Ur Blood (Man) Urine Nitrate Urine Bilirubin Urine Urobilinogen Leukocyte Esterase Rfl Urine RBC Urine WBC Ur Squamous Epith Cells Urine Bacteria Urine Casts Influenza A (RT-PCR) Negative Influenza B (RT-PCR) Negative RSV (RT-PCR) Negative SARS-CoV-2 RNA (RT-PCR) Negative 05/11/24 05/11/24 05/11/24 16:00 18:22 21:50 WBC RBC Hgb Hct MCV MCH MCHC RDW Plt Count MPV Immature Gran % (Auto) Neut % (Auto) Lymph % (Auto) [place] % (Auto) Eos % (Auto) Baso % (Auto) Lymph # (Auto) [place] # (Auto) Eos # (Auto) Baso # (Auto) Abs Immat Gran (auto) Absolute Neuts (auto) Absolute Nucleated RBC Nucleated RBC % Puncture Site Right brachial ABG pH 7.430 ABG pCO2 35.7 ABG pO2 83.2 ABG PO2/FiO2 Ratio 2.60 ABG HCO3 23.2 ABG O2 Saturation 96.5 ABG O2 Content 15.1 L ABG Base Excess -0.8 A-a Gradient 103.2 Oxyhemoglobin 96.0 Carboxyhemoglobin 0.1 Methemoglobin 0.3 Reduced Hemoglobin 3.6 Total Hemoglobin 11.1 L O2 Delivery Device Nasal cannula O2 Liters/Min 3.0 FiO2 32 Sodium Potassium Chloride Carbon Dioxide Anion Gap BUN Creatinine Estim Creat Clear Calc Estimated GFR Glucose Lactic Acid 2.1 H Calcium Magnesium Total Bilirubin AST ALT Alkaline Phosphatase Total Creatine Kinase NT-Pro-B Natriuret Pep Total Protein Albumin Urine Color Yellow Urine Appearance Clear Urine pH 5.5 Ur Specific [place] 1.015 Urine Protein 1+ H Urine Glucose (UA) Trace H Urine Ketones 1+ H Ur Blood (Man) 1+ H Urine Nitrate Positive H Urine Bilirubin Negative Urine Urobilinogen 0.2 Leukocyte Esterase Rfl 1+ H Urine RBC 0-2 Urine WBC 21-50 H Ur Squamous Epith Cells None seen Urine Bacteria 4+ H Urine Casts 0-2 Influenza A (RT-PCR) Influenza B (RT-PCR) RSV (RT-PCR) SARS-CoV-2 RNA (RT-PCR) 05/12/24 00:10 WBC RBC Hgb Hct MCV MCH MCHC RDW Plt Count MPV Immature Gran % (Auto) Neut % (Auto) Lymph % (Auto) [place] % (Auto) Eos % (Auto) Baso % (Auto) Lymph # (Auto) [place] # (Auto) Eos # (Auto) Baso # (Auto) Abs Immat Gran (auto) Absolute Neuts (auto) Absolute Nucleated RBC Nucleated RBC % Puncture Site Right radial ABG pH 7.402 ABG pCO2 36.2 ABG pO2 84.6 ABG PO2/FiO2 Ratio 3.02 ABG HCO3 22.0 ABG O2 Saturation 96.5 ABG O2 Content 15.0 L ABG Base Excess -2.3 A-a Gradient 72.3 Oxyhemoglobin 95.7 Carboxyhemoglobin Methemoglobin Reduced Hemoglobin Total Hemoglobin 11.1 L O2 Delivery Device Nasal cannula O2 Liters/Min 2.0 FiO2 28 Sodium Potassium Chloride Carbon Dioxide Anion Gap BUN Creatinine Estim Creat Clear Calc Estimated GFR Glucose Lactic Acid Calcium Magnesium Total Bilirubin AST ALT Alkaline Phosphatase Total Creatine Kinase NT-Pro-B Natriuret Pep Total Protein Albumin Urine Color Urine Appearance Urine pH Ur Specific [place] Urine Protein Urine Glucose (UA) Urine Ketones Ur Blood (Man) Urine Nitrate Urine Bilirubin Urine Urobilinogen Leukocyte Esterase Rfl Urine RBC Urine WBC Ur Squamous Epith Cells Urine Bacteria Urine Casts Influenza A (RT-PCR) Influenza B (RT-PCR) RSV (RT-PCR) SARS-CoV-2 RNA (RT-PCR) Impressions Head CT 05/11/24 15:18 IMPRESSION: Old right temporal of occipital infarcts Cerebral atherosclerosis and chronic small vessel ischemic changes of the cerebral white matter No acute intracranial finding or significant change since 06/18/2023 Chest X-Ray 05/11/24 15:35 IMPRESSION: Radiologic Impression as mentioned under HPI (chest x-ray personally reviewed and interpreted) Assessment and Plan Assessment and plan (1) Sepsis: Qualifiers: Sepsis acute organ dysfunction status: unspecified Sepsis type: sepsis due to unspecified organism Qualified Code(s): A41.9 - Sepsis, unspecified organism Code(s): A41.9 - Sepsis, unspecified organism Status: Acute (2) UTI (urinary tract infection): Qualifiers: Hematuria presence: without hematuria Urinary tract infection type: acute cystitis Qualified Code(s): N30.00 - Acute cystitis without hematuria Code(s): N39.0 - Urinary tract infection, site not specified Status: Acute (3) Acute hypoxic respiratory failure: Code(s): J96.01 - Acute respiratory failure with hypoxia Status: Acute (4) Altered mental status: Qualifiers: Altered mental status type: delirium Qualified Code(s): R41.0 - Disorientation, unspecified Code(s): R41.82 - Altered mental status, unspecified Status: Acute (5) Lactic acidosis: Code(s): E87.20 - Acidosis, unspecified Status: Acute (6) Hypomagnesemia: Code(s): E83.42 - Hypomagnesemia Status: Acute (7) Urinary retention with incomplete bladder emptying: Code(s): R33.9 - Retention of urine, unspecified Status: Acute (8) Type 2 diabetes mellitus with hyperglycemia, with long-term current use of insulin: Code(s): E11.65 - Type 2 diabetes mellitus with hyperglycemia; Z79.4 - rat exterminator (current) use of insulin Status: Acute (9) Elevated CK: Code(s): R74.8 - Abnormal levels of other serum enzymes Status: Acute (10) Hyponatremia: Code(s): E87.1 - Hypo-osmolality and hyponatremia Status: Acute (11) Gastro-esophageal reflux disease without esophagitis: Code(s): K21.9 - Gastro-esophageal reflux disease without esophagitis Status: Acute Plan Patient meets severe sepsis criteria with leukocytosis, hypothermia, tachypnea and tachycardia in the setting of likely urinary tract infection. The patient received adequate fluid resuscitation with 2 L normal saline in ER. She was placed on empiric antibiotic therapy with Rocephin. Blood cultures and urine cultures are pending. UTI likely in part due to incomplete bladder emptying was evidence of urinary retention. Bennett catheter was placed. Patient's agitation improved significantly after Bennett catheter placement. Will repeat CBC and electrolyte panel in a.m.. Patient did develop acute hypoxic respiratory failure with O2 sats of 88%. She is noted to be wheezing quite significantly. The patient's family denies her having history of COPD or tobacco abuse history but did have significant secondhand smoke exposure in the past. Respiratory status improved significantly after nebulizer treatment. Will continue scheduled DuoNebs. Patient likely has a component of underlying obstructive sleep apnea playing a component in the hypoxia. It looks like the patient's hypoxia started after she had received a dose of Ativan. Will continue supplemental oxygen as needed. Wean as tolerated. Patient has metabolic encephalopathy resulting in delirium. Zyprexa has been ordered as needed. One dose of IM Zyprexa given. Will try to avoid benzodiaze [place] as this seemed to almost worsen the patient's agitation. Will check TSH to rule out other metabolic causes of encephalopathy Patient has chronic hyponatremia hyponatremia is at baseline but patient appears acutely dehydrated with dry mucous membranes. There may be some component of hyperosmolar hyponatremia. Will continue IV fluids as discussed above and repeat electrolyte panel in a.m.. Patient had some mild CK elevation likely in part due to her agitation and restless hyperactive movements. Will repeat CK in a.m. Patient is hyperglycemic. Will place patient on her home 70 30 insulin but at a slightly decreased dose given her acute illness and likely decreased oral intake. Will add high-dose sliding scale correction with hypoglycemia protocol as needed and Accu-Cheks a.c. HS. Will check A1c Patient had some hypo magnesemia in the ER which was replaced with 2 g rider. Will repeat magnesium level in a.m.. Goals of care discussion was completed with the patient's son to her bedside. They both agree that the patient would not want heroic measures if her heart were to stop or if she were in overt respiratory distress. They are okay with continuing antibiotics and noninvasive respiratory support if needed. At this time they request that her code status be changed to a DNR/DNI. 85 minute spent in critical care activities. Due to a high probability of clinically significant, life threatening deterioration, the patient required my highest level of preparedness to intervene emergently and I personally spent this critical care time directly and personally managing the patient. This critical care time included obtaining a history; examining the patient; pulse oximetry; ordering and review of studies; arranging urgent treatment with development of a management plan; evaluation of patient's response to treatment; frequent reassessment; and discussions with other providers. It was exclusive of separately billable procedures and treating other patients and teaching time. Please see Assessment and Plan section and the rest of the note for further information on patient assessment and treatment. Quality VTE Prophylaxis VTE prophylaxis: pharmacologic ordered (Lovenox 40 mg subQ daily) Hospitalist [facility] Advance Care Plan I have confirmed that the patient's Advanced Care Plan is present, code status is documented, or surrogate decision maker is listed in patient medical record.: Yes Medication Reconciliation I have utilized all available resources to obtain, update and review the patients current medications (includes all prescriptions, OTC, herbals, cannabis, and nutritional supplements).: Yes
[2024-05-11] MEDS: IPRATROPIUM BR 0.02% INH SOLN 0.5 MG/2.5 ML VIAL 1.5 MG INHALATION (20:49)
--- NOTE | 2024-05-11 21:07 | PC.NURSE ---
Admission completed with patient and her son; patient presents as confused and unable to answer most questions. Home medication list provided via patient's son in the form of pictures he had acquired on his cell phone and paired with an external medication list. Admission report provided to JONO Lerma.
--- NOTE | 2024-05-11 21:16 | PC.NURSE ---
RN sent Lactic to lab at this time.
--- NOTE | 2024-05-11 21:34 | ADMGEN ---
This patient, Rachael Cabezas, was admitted to Medical Room 345-01. Patient/family oriented to hospital policies and general routines including ID bracelet, bed and alarms, visiting hours, pain management, procedures, bathroom and other care routines, personal items, smoking policy, room service/diet, and visiting hours. Information on how to activate the Rapid Response Team has been discussed. Patient/Family are encouraged to report perceived risks to care and to ask questions if they do not understand what they are told or what they should do.
[2024-05-11 21:46] VITALS: BP 175/78; PULSE 102; RESP 32; TEMP 37.4; O2SAT 96
[2024-05-11 22:14] LABS: Lactic Acid Reflex 2.1 mmol/L (0.7-2.0)
[2024-05-11] MEDS: hydrOXYzine HCL 25 MG TABLET PO (22:45)
[2024-05-11] MEDS: OLANZapine 5 MG, WATER, STERILE FOR INJECTION 2.1 ML IM (23:59)
[2024-05-12] VITALS (21 sets, daily range): BP systolic 114–154; BP diastolic 48–94; PULSE 85–142; RESP 20–28; TEMP 36.6–36.8; O2SAT 94–100; BMI 43.6
--- NOTE | 2024-05-12 | ECHO_ITS ---
Patient Info Name: Rachael Cabezas Age: 89 years : 1935 Gender: Female Ht: 51 in Wt: 216 lbs BSA: 1.96 m2 HR: 92 bpm BP: 114 / 48 mmHg Technical Quality: Poor Exam Date: 05/12/2024 2:41 PM Exam Location: [facility] Patient Status: Inpatient Admit Date: 05/12/2024 Staff Ordering Physician: Tatum Newberry DO Contract Forester: Shaheed Tran RDCS Attending Provider: Deshawn Mcguire MD Referring Physician: Rohith DALY; Exam Type: CA echo doppler color flow Study Info Indications - ACUTE HYPOXIC RESP FAILURE Complete two-dimensional, color flow and Doppler transthoracic echocardiogram is performed. Reason for Poor Study: poor patient cooperation Summary 1. Complete two-dimensional, color flow and Doppler transthoracic echocardiogram is performed. 2. Technically suboptimal study due to poor sonographic images. 3. Left ventricular chamber dimension is normal. 4. Left ventricular systolic function is normal, estimated at 65-70%. 5. The left ventricular diastolic function is normal. 6. E/e' 8 is minimally elevated. Left Ventricle Technically suboptimal study due to poor sonographic images. E/e' 8 is minimally elevated. Left ventricular chamber dimension is normal. Left ventricular systolic function is normal, estimated at 65-70%. The left ventricular diastolic function is normal. Right Ventricle Right ventricular chamber dimension is normal. Right ventricular systolic function is normal. Left Atria Left atrial chamber dimension is normal. Right Atria Right atrial chamber dimension is normal. Aortic Valve The aortic valve is trileaflet. There is no aortic valve stenosis. There is no aortic valve regurgitation. Pulmonic Valve The pulmonic valve is not well visualized. There is no pulmonic regurgitation. Mitral Valve There is no mitral valve stenosis. There is no mitral valve regurgitation. Tricuspid Valve There is no tricuspid valve regurgitation. Pericardium/Pleural There is no pericardial effusion. Aorta The aortic root size at the sinus of Valsalva is normal. Left Ventricular Outflow Tract Name Value Normal LVOT 2D LVOT Diameter 1.8 cm LVOT Doppler LVOT Peak Gradient 4 mmHg LVOT Mean Gradient 2 mmHg LVOT VTI 26 cm LVOT VTI/AV VTI Ratio 0.8 LVOT Stroke Volume 64 ml LVOT CO 7.0 l/min LVOT CI 3.6 l/min/m2 Pulmonic Valve Name Value Normal RVOT Doppler RVOT Peak Gradient 6 mmHg PV Doppler PV Peak Gradient 8 mmHg Mitral Valve Name Value Normal MV Doppler MV Decel [place] 2,133 cm/s2 MV PHT 16 ms MV Area (PHT) 13.8 cm2 4.0-5.0 MV Diastolic Function MV E Peak Velocity 117 cm/s MV A Peak Velocity 2 cm/s MV E/A 77.7 MV Decel Time 55 ms MV Annular TDI MV E/e' (Septal) 9.5 <=8.0 MV E/e' (Lateral) 7.4 <=8.0 MV E/e' (Average) 8.5 Tricuspid Valve Name Value Normal Estimated PAP/RSVP RA Pressure 5 mmHg <=5 Aorta Name Value Normal Ascending Aorta Ao Root Diameter (MM) 3.4 cm Ao Root Diam Index (MM) 1.7 cm/m2 Aortic Valve Name Value Normal AV Doppler AV Peak Velocity 187 cm/s AV Peak Gradient 8 mmHg AV Mean Gradient 4 mmHg AV VTI 33 cm AV Area (Cont Eq VTI) 1.9 cm2 >=3.0 AV Area (Cont Eq Charles) 1.8 cm2 AV Regurgitation 2D LVOT Area 2.4 cm2 Ventricles Name Value Normal LV Dimensions 2D/MM LVOT Diameter 1.8 cm Atria Name Value Normal LA Dimensions LA Dimension (MM) 3.8 cm 2.7-3.8 LA Volume (4C A-L) 40 ml RA Dimensions RA Area (4C) 11.4 cm2 <=18.0 Report Signatures
[2024-05-12] MEDS: IPRATROPIUM 0.5 MG/ALBUTEROL SULFATE 2.5 MG AMPUL.NEB 3 ML INHALATION ×5 (00:11→20:17)
[2024-05-12 00:24] LABS: Alveolar/Arterial O2 Gradient 72.3 mmHg; Base Excess ABG -2.3 mEq/l (+/-2.0); Fractional Inspired Oxygen 28 %; Oxygen Saturation ABG 96.5 % (95.0-100.0); Oxyhemoglobin 95.7 % THb (90.0-100.0); PCO2 ABG 36.2 mmHg (35.0-45.0); PO2 ABG 84.6 mmHg (80.0-100.0); PO2 FiO2 Ratio Arterial Blood 3.02 %; Total Hemoglobin 11.1 g/dL (12.0-18.0); pH ABG 7.402 (7.350-7.450)
[2024-05-12 00:25] LABS: Device NASAL CANNULA; Modified Allen's Test Pass; Site Drawn RIGHT RADIAL
[2024-05-12] MEDS: SODIUM CHLORIDE 0.9% IV 1,000 ML 75 ML IV CONT (01:28)
[2024-05-12 01:57] LABS: Glucose Point of Care 164 mg/dl (65-105)
[2024-05-12] MEDS: OLANZapine 10 MG, WATER, STERILE FOR INJECTION 2.1 ML IM (02:40)
[2024-05-12] MEDS: AZELASTINE HCL NASAL 0.1% 137 MCG/SPR 30 ML BTL 1 SPRAY NASAL ×3 (02:40→20:11)
[2024-05-12] MEDS: methylPREDNISolone SOD SUCC 125 MG VIAL IV PUSH (03:44)
[2024-05-12] MEDS: LORazepam INJ (*CRX) 2 MG/ML VIAL 1 MG IV PUSH (03:59)
[2024-05-12] MEDS: FUROSEMIDE INJ 40 MG/4 ML VIAL 20 MG IV PUSH (04:04)
--- NOTE | 2024-05-12 04:47 | PC.NURSE ---
Ammonium Nitrate Neutralizer rounded on patient at 0330. Patient had increased agitation along with increased respirations and using accessory muscle to breath. Dr Newberry was on the floor and called back to bedside. See Mar for additional orders.
[2024-05-12 05:51] LABS: Basophils Percent Auto 0.2 % (0.2-1.2); Hematocrit 29.7 % (37.0-47.0); Hemoglobin 9.6 g/dL (12.0-15.0); Immature Granulocyte Absolute 0.13 K/mm3 (0.00-0.031); Lymphocytes Absolute Auto 0.96 K/mm3 (0.9-3.2); Lymphocytes Percent Auto 7.7 % (18.3-44.2); Mean Corpuscular HGB Conc 32.3 g/dl (32-36); Mean Corpuscular Hemoglobin 30.8 pg (26-34); Mean Corpuscular Volume 95.2 fl (80-100); Mean Platelet Volume 8.5 fl (7.4-10.4); Monocytes Absolute Auto 0.3 K/mm3 (0.1-0.6); Monocytes Percent Auto 2.6 % (2.6-8.5); Neutrophils Absolute Auto 11.1 K/mm3 (1.3-6.7); Neutrophils Percent Auto 88.5 % (45.5-73.1); Platelet Count Result 270 k/mm3 (150-375); Red Blood Count 3.12 M/mm3 (4.2-5.4); Red Cell Distribution Width 15.3 % (11.5-14.5); White Blood Count 12.5 K/mm3 (4.5-10.0)
[2024-05-12 06:11] LABS: Alanine Aminotransferase 15 U/L (6-35); Albumin Level 3.4 g/dL (3.5-5.1); Alkaline Phosphatase 91 U/L (38-126); Anion Gap 8 mmol/L (4-12); Aspartate Amino Transferase 34 U/L (14-36); Bilirubin,Total 0.5 mg/dL (0.2-1.3); Blood Urea Nitrogen 11 mg/dL (7-17); Calcium 7.7 mg/dL (8.4-10.2); Carbon Dioxide 24 mmol/L (22-30); Chloride 102 mmol/L (98-107); Estimated Glomerular Filt Rate 47; Glucose 200 mg/dL (65-110); Magnesium 1.5 mg/dL (1.6-2.3); Potassium 3.2 mmol/L (3.4-5.0); Sodium 134 mmol/L (137-145)
[2024-05-12 06:15] LABS: Hemoglobin A1C 7.2 % (<5.7)
[2024-05-12 06:45] LABS: Creatine Kinase 598 U/L (30-135)
[2024-05-12 06:46] LABS: Thyroid Stimulating Hormone Reflex 0.778 uIU/mL (0.465-4.68)
[2024-05-12 08:44] LABS: Glucose Point of Care 239 mg/dl (65-105)
[2024-05-12] MEDS: MAGNESIUM SULF 2 GM/WATER 50ML 2 GM/50 ML BAG IVPB (09:17)
[2024-05-12] MEDS: ENOXAPARIN 40 MG/0.4 ML SYRINGE SUB-Q (09:19)
[2024-05-12] MEDS: POTASSIUM CHLORIDE 20 MEQ PACKET (FOR LIQUID) 40 MEQ PO (09:24)
[2024-05-12] MEDS: INSULIN ASPART (*BKC) 100 UNITS/ML SUB-Q ×2 (09:32→13:02)
--- NOTE | 2024-05-12 09:42 | P.PNIM_ITS ---
Progress Note: A&P Assessment and Plan (1) Sepsis: Qualifiers: Sepsis acute organ dysfunction status: unspecified Sepsis type: sepsis due to unspecified organism Qualified Code(s): A41.9 - Sepsis, unspecified o rganism Code(s): A41.9 - Sepsis, unspecified organism Status: Acute Assessment and Plan: Patient meets severe sepsis criteria with leukocytosis, hypothermia, tachypnea and tachycardia UA c/w urinary tract infection. CXR showing mild airspace disease bilateral LL. Repeat CXR noted so consider PNA. WBC 14K. She received adequate fluid resuscitation with 2 L normal saline in ER. Started on Rocephin once Blood cultures and urine cultures collected Consider an interabdominal process given exam findings Multiple allergies to abx. Check CT A/P (2) Acute hypoxic respiratory failure: Code(s): J96.01 - Acute respiratory failure with hypoxia Status: Acute Assessment and Plan: Patient developed acute hypoxic respiratory failure with O2 sats of 88% that may have started after a dose of Ativan. She is noted to be wheezing. No hx of COPD, tobacco abuse or asthma but did have significant secondhand smoke exposure in the past. CXR as above. BNP 1050. ABG showing 7.43/36/83 on 3L. She received Solu-Medrol 125mg once in ED. Respiratory status improved significantly after nebulizer treatment. Repeat CXR showing increased haziness LLL and RUL. Lasix IV given once. Continue scheduled DuoNebs. Patient may have a component of underlying LOYD playing a component in the hypoxia. Continue supplemental oxygen as needed. Wean as tolerated. (3) UTI (urinary tract infection): Qualifiers: Hematuria presence: without hematuria Urinary tract infection type: acute cystitis Qualified Code(s): N30.00 - Acute cystitis without hematuria Code(s): N39.0 - Urinary tract infection, site not specified Status: Acute Assessment and Plan: UA is consistent with UTI. UCx collected. Rocephin started. UTI likely in part due to incomplete bladder emptying was evidence of urinary retention. Bennett catheter was placed. UCx pending. Follow up on UCx results. (4) Altered mental status: Qualifiers: Altered mental status type: delirium Qualified Code(s): R41.0 - Disorientation, unspecified Code(s): R41.82 - Altered mental status, unspecified Status: Acute Assessment and Plan: Patient has metabolic encephalopathy resulting in delirium. Ativan given in ED. Two doses of IM Zyprexa and Ativan given after admission. Avoid benzodiazepines as this seemed to almost worsen the patient's agitation. TSH normal. CT brain showing no acute process. Patient's agitation improved significantly after Bennett catheter placement. Zyprexa has been ordered as needed. Follow. Neuro checks. Speech consult. PT/OT (5) Lactic acidosis: Code(s): E87.20 - Acidosis, unspecified Status: Acute Assessment and Plan: Related to sepsis picture LA 2.7 and now trending down. (6) Hypomagnesemia: Code(s): E83.42 - Hypomagnesemia Status: Acute Assessment and Plan: Patient with hypomagnesemia in the ER which was replaced with 2 g rider. Repeat Mag level still low so will replace again. (7) Urinary retention with incomplete bladder emptying: Code(s): R33.9 - Retention of urine, unspecified Status: Acute Assessment and Plan: As above (8) Type 2 diabetes mellitus with hyperglycemia, with long-term current use of insulin: Code(s): E11.65 - Type 2 diabetes mellitus with hyperglycemia; Z79.4 - USP (current) use of insulin Status: Acute Assessment and Plan: A1c 7.2.%. The patient's blood glucose was reviewed on 05/12 Glucose elevated in low 200's Continue AccuCheks covering with sliding scale. Hypoglycemia protocol available as needed. Hold home meds until eating. Continue to follow. (9) Elevated CK: Code(s): R74.8 - Abnormal levels of other serum enzymes Status: Acute Assessment and Plan: Patient had some mild CK elevation likely in part due to her agitation and restless hyperactive movements. Repeat CK is higher. Follow (10) Hyponatremia: Code(s): E87.1 - Hypo-osmolality and hyponatremia Status: Acute Assessment and Plan: Patient has chronic mild hyponatremia Sodium stable in mid to low 130's. Follow Plan DVT prophylaxis - Lovenox Code status - DNR Subjective Date/time seen: 05/12/24 09:42 Interval history: 81yo female with DM, HTN, CAD, CVA, CKD and overactive bladder with recent UTI in November who presented to the ER via EMS with confusion. The patient arrived to the ER orient x1 and was agitated and restless. Assuming care. Chart reviewed. Patient is confused and somnolent. She does arouse easily and says a few words but nonsensical. Family in the room state patient found to be confused at home. No alcohol or drug use. No recent changes in her medications. No adjustments in her meds. has had infections i the past but never been confused before. Does not require O2 or NIV at home. Review of Systems Review of Systems: ROS unobtainable: Yes unobtainable due to medical condition Exam Narrative: AF 97.8 114/48 121 22 94% 2L Gen - tachypneic lying semi-recumbent in bed Chest - audible expir wheeze. very distant BS. tachypneic CV - tachycardic. irregular Abd - Soft, diffusely tender. +BS - Bennett secured draining clear yellow urine Ext - bilateral LE pitting and nonpitting edema with wrinking Neuro - somnolent but arouses easily. Follows commands. No obvious focal weakness. Psych - difficult to assess. Skin - Warm and dry Objective Data Vital Signs Vital Signs: Vital Signs - 24 hr 05/11/24 14:41 05/11/24 14:52 05/11/24 16:54 Temperature 98.5 F Pulse Rate 132 H 115 H Respiratory Rate 20 Blood Pressure 199/106 H Pulse Oximetry 88 L 92 Oxygen Delivery Room Air Nasal Cannula Oxygen Flow Rate 2 Fraction of Inspired Oxygen 05/11/24 17:11 05/11/24 21:46 05/12/24 00:11 Temperature 99.4 F Pulse Rate 96 102 H 101 H Respiratory Rate 22 H 32 H 28 H Blood Pressure 127/106 H 175/78 H Pulse Oximetry 98 96 Oxygen Delivery Oxygen Flow Rate Fraction of Inspired Oxygen 05/12/24 00:18 05/12/24 00:51 05/12/24 02:59 Temperature 98.2 F Pulse Rate 110 H 97 95 Respiratory Rate 28 H 24 H 22 H Blood Pressure 118/69 Pulse Oximetry 96 Oxygen Delivery Oxygen Flow Rate Fraction of Inspired Oxygen 05/12/24 04:18 05/12/24 04:46 05/12/24 04:00 Temperature Pulse Rate 105 H Respiratory Rate 24 H Blood Pressure Pulse Oximetry 100 94 Oxygen Delivery Nasal Cannula Oxygen Flow Rate 3 2 Fraction of Inspired Oxygen 05/12/24 04:47 05/12/24 07:22 05/12/24 07:22 Temperature 97.8 F Pulse Rate 92 116 H Respiratory Rate 20 24 H Blood Pressure 114/48 L Pulse Oximetry 100 94 Oxygen Delivery Nasal Cannula Oxygen Flow Rate 2 Fraction of Inspired Oxygen 28 05/12/24 07:32 05/12/24 09:21 Temperature Pulse Rate 114 H 121 H Respiratory Rate 22 H Blood Pressure Pulse Oximetry Oxygen Delivery Oxygen Flow Rate Fraction of Inspired Oxygen Intake/Output Intake/Output: Intake & Output 05/09/24 05/10/24 05/11/24 05/12/24 23:59 23:59 23:59 23:59 Intake Total 2100 0 Output Total 250 Balance 2100 -250 Meds/Results Medications: Active Medications Generic Name Dose Route Start Last Admin Trade Name Freq PRN Reason Stop Dose Admin Acetaminophen 650 mg 05/11/24 18:37 Acetaminophen 325 Mg Tablet PO Q4H PRN Mild Pain (1-3) or Fever Albuterol/Ipratropium 3 ml 05/12/24 02:00 05/12/24 07:22 Ipratropium 0.5 Mg/Albuterol Sulfate 2.5 Mg Ampul.Neb 3 Ml INHALATION 3 ml Q6HRT PAPI Administration Aspirin 81 mg 05/12/24 09:00 05/12/24 09:20 Aspirin 81 Mg Enteric Tablet PO 81 mg DAILY PAPI Administration Azelastine HCl 1 spray 05/11/24 22:10 05/12/24 09:37 Azelastine Hcl Nasal 0.1% 137 Mcg/Spr 30 Ml Btl NASAL 1 spray Q12HR PAPI Administration Dextrose 12.5 gm 05/11/24 18:37 Dextrose 50% 25 Gm/50 Ml Syringe IV PUSH PRN PRN Hypoglycemia Protocol Diltiazem HCl 300 mg 05/12/24 09:00 05/12/24 09:19 Diltiazem Hcl Cd 300 Mg Cap.24hr PO 300 mg DAILY PAPI Administration Docusate Sodium 100 mg 05/12/24 09:00 05/12/24 09:20 Docusate Sodium 100 Mg Capsule PO 100 mg DAILY PAPI Administration Enoxaparin Sodium 40 mg 05/12/24 09:00 05/12/24 09:19 Enoxaparin 40 Mg/0.4 Ml Syringe SUB-Q 40 mg DAILY PAPI Administration Famotidine 20 mg 05/12/24 21:00 Famotidine 20 Mg Tablet PO QHS PAPI Glucagon 1 mg 05/11/24 18:37 Glucagon For Inj 1 Mg Vial IM PRN PRN Hypoglycemia Protocol Glucose 15 gm 05/11/24 18:37 Glucose Oral Gel 15 Gm Of Glucse In 37.5 Gm Tube PO PRN PRN Hypoglycemia Protocol Guaifenesin 600 mg 05/11/24 22:09 Guaifenesin 12 Hr 600 Mg Tabcr PO Q12H PRN congestion Hydroxyzine HCl 25 mg 05/11/24 22:09 05/11/24 22:45 Hydroxyzine Hcl 25 Mg Tablet PO 25 mg Q6-8H PRN Administration Anxiety Ceftriaxone Sodium 1 gm in 50 mls @ 100 mls/hr 05/12/24 12:00 Rocephin 1 Gm/Ns 50 Ml IVPB Q24H PAPI Dextrose 1,000 mls @ 100 mls/hr 05/11/24 18:37 Dextrose 5% 1,000 Ml IVPB PRN PRN Hypoglycemia Protocol Magnesium Sulfate 2 gm in 50 mls @ 25 mls/hr 05/12/24 08:15 05/12/24 09:17 Magnesium Sulf 2 Gm/Water 50ml IVPB 05/12/24 10:14 25 mls/hr ONCE ONE Administration Insulin Aspart 4 - 8 units 05/12/24 08:00 05/12/24 09:32 Insulin Aspart (*Bkc) 100 Units/Ml SUB-Q 4 units TIDWM PAPI Administration Protocol Insulin Aspart 2 - 4 units 05/12/24 21:00 Insulin Aspart (*Bkc) 100 Units/Ml SUB-Q HS [facility] Protocol Insulin Human Isoph/Insulin Regular 12 units 05/12/24 09:00 Insulin Human Isophan/Regular 70/30 (*Bkc) 100 Units/Ml SUB-Q BID PAPI Isosorbide Mononitrate 60 mg 05/12/24 09:00 05/12/24 09:20 Isosorbide Mononitrate 60 Mg Tab.Er.24h PO 60 mg DAILY PAPI Administration Loratadine 10 mg 05/12/24 09:00 05/12/24 09:20 Loratadine 10 Mg Tablet PO 10 mg DAILY PAPI Administration Losartan Potassium 50 mg 05/12/24 09:00 05/12/24 09:20 Losartan Potassium 50 Mg Tablet PO 50 mg DAILY PAPI Administration Metoprolol Tartrate 12.5 mg 05/12/24 09:00 05/12/24 09:21 Metoprolol Tartrate 12.5 Mg Tablet PO 12.5 mg Q12HR PAPI Administration Olanzapine 5 mg 05/11/24 23:42 05/12/24 09:19 Olanzapine 5 Mg Tablet PO 5 mg Q8H PRN Administration Delirium Ondansetron HCl 4 mg 05/11/24 18:37 Ondansetron Inj 4 Mg/2 Ml Vial IV PUSH Q4H PRN Nausea Pantoprazole Sodium 40 mg 05/12/24 09:00 05/12/24 09:24 Pantoprazole 40 Mg Tablet PO 40 mg QAM PAPI Administration Perflutren Lipid Microsphere 0 ml 05/12/24 04:32 Perflutren Lipid Microspheres 1.5 Ml Vial Diluted To 10 Ml Total Volume IV PUSH 05/15/24 04:32 ONCE PRN adequate visualization Protocol Sodium Chloride 2 spray 05/11/24 22:09 Saline 0.65% Husam Soln 44 Ml Btl NASAL QID PRN dryness Ursodiol 300 mg 05/12/24 09:00 05/12/24 09:20 Ursodiol 300 Mg Capsule PO 300 mg BID PAPI Administration Radiology Results: ITS Impressions Head CT 05/11/24 15:18 IMPRESSION: 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 Correlate for worsening pulmonary edema/atelectasis versus pneumonia. Possible minimal pleural effusions. Increasing interstitial pattern in the right upper lobe, nonspecific. Labs Labs: Laboratory Results - last 24 hr 05/11/24 05/11/24 05/11/24 15:43 15:44 15:44 WBC 14.0 H RBC 3.50 L Hgb 10.8 L Hct 32.9 L MCV 94.0 MCH 30.9 MCHC 32.8 RDW 15.2 H Plt Count 325 MPV 8.7 Immature Gran % (Auto) 0.7 H Neut % (Auto) 88.3 H Lymph % (Auto) 6.9 L [place] % (Auto) 3.6 Eos % (Auto) 0.1 Baso % (Auto) 0.4 Lymph # (Auto) 0.96 [place] # (Auto) 0.5 Eos # (Auto) 0.0 Baso # (Auto) 0.1 Abs Immat Gran (auto) 0.10 H Absolute Neuts (auto) 12.4 H Absolute Nucleated RBC 0.000 Nucleated RBC % 0.0 Puncture Site ABG pH ABG pCO2 ABG pO2 ABG PO2/FiO2 Ratio ABG HCO3 ABG O2 Saturation ABG O2 Content ABG Base Excess A-a Gradient Oxyhemoglobin Carboxyhemoglobin Methemoglobin Reduced Hemoglobin Total Hemoglobin O2 Delivery Device O2 Liters/Min FiO2 Sodium 133 L Potassium 3.4 Chloride 99 Carbon Dioxide 25 Anion Gap 9 BUN 14 Creatinine 1.00 Estim Creat Clear Calc Not Reportable Estimated GFR 52 L Glucose 219 H POC Capillary Glucose Hemoglobin A1c Lactic Acid 2.7 H Calcium 8.5 Magnesium 1.1 L Cancelled Total Bilirubin 0.5 AST 25 ALT 14 Alkaline Phosphatase 109 Total Creatine Kinase 219 H NT-Pro-B Natriuret Pep 1050 H Total Protein 7.0 Albumin 3.8 TSH (Reflex) Urine Color Urine Appearance Urine pH Ur Specific [place] Urine Protein Urine Glucose (UA) Urine Ketones Ur Blood (Man) Urine Nitrate Urine Bilirubin Urine Urobilinogen Leukocyte Esterase Rfl Urine RBC Urine WBC Ur Squamous Epith Cells Urine Bacteria Urine Casts Influenza A (RT-PCR) Negative Influenza B (RT-PCR) Negative RSV (RT-PCR) Negative SARS-CoV-2 RNA (RT-PCR) Negative 05/11/24 05/11/24 05/11/24 16:00 18:22 21:50 WBC RBC Hgb Hct MCV MCH MCHC RDW Plt Count MPV Immature Gran % (Auto) Neut % (Auto) Lymph % (Auto) [place] % (Auto) Eos % (Auto) Baso % (Auto) Lymph # (Auto) [place] # (Auto) Eos # (Auto) Baso # (Auto) Abs Immat Gran (auto) Absolute Neuts (auto) Absolute Nucleated RBC Nucleated RBC % Puncture Site Right brachial ABG pH 7.430 ABG pCO2 35.7 ABG pO2 83.2 ABG PO2/FiO2 Ratio 2.60 ABG HCO3 23.2 ABG O2 Saturation 96.5 ABG O2 Content 15.1 L ABG Base Excess -0.8 A-a Gradient 103.2 Oxyhemoglobin 96.0 Carboxyhemoglobin 0.1 Methemoglobin 0.3 Reduced Hemoglobin 3.6 Total Hemoglobin 11.1 L O2 Delivery Device Nasal cannula O2 Liters/Min 3.0 FiO2 32 Sodium Potassium Chloride Carbon Dioxide Anion Gap BUN Creatinine Estim Creat Clear Calc Estimated GFR Glucose POC Capillary Glucose Hemoglobin A1c Lactic Acid 2.1 H Calcium Magnesium Total Bilirubin AST ALT Alkaline Phosphatase Total Creatine Kinase NT-Pro-B Natriuret Pep Total Protein Albumin TSH (Reflex) Urine Color Yellow Urine Appearance Clear Urine pH 5.5 Ur Specific [place] 1.015 Urine Protein 1+ H Urine Glucose (UA) Trace H Urine Ketones 1+ H Ur Blood (Man) 1+ H Urine Nitrate Positive H Urine Bilirubin Negative Urine Urobilinogen 0.2 Leukocyte Esterase Rfl 1+ H Urine RBC 0-2 Urine WBC 21-50 H Ur Squamous Epith Cells None seen Urine Bacteria 4+ H Urine Casts 0-2 Influenza A (RT-PCR) Influenza B (RT-PCR) RSV (RT-PCR) SARS-CoV-2 RNA (RT-PCR) 05/12/24 05/12/24 05/12/24 00:10 01:55 05:45 WBC 12.5 H RBC 3.12 L Hgb 9.6 L Hct 29.7 L MCV 95.2 MCH 30.8 MCHC 32.3 RDW 15.3 H Plt Count 270 MPV 8.5 Immature Gran % (Auto) 1.0 H Neut % (Auto) 88.5 H Lymph % (Auto) 7.7 L [place] % (Auto) 2.6 Eos % (Auto) 0.0 Baso % (Auto) 0.2 Lymph # (Auto) 0.96 [place] # (Auto) 0.3 Eos # (Auto) 0.0 Baso # (Auto) 0.0 Abs Immat Gran (auto) 0.13 H Absolute Neuts (auto) 11.1 H Absolute Nucleated RBC 0.000 Nucleated RBC % 0.0 Puncture Site Right radial ABG pH 7.402 ABG pCO2 36.2 ABG pO2 84.6 ABG PO2/FiO2 Ratio 3.02 ABG HCO3 22.0 ABG O2 Saturation 96.5 ABG O2 Content 15.0 L ABG Base Excess -2.3 A-a Gradient 72.3 Oxyhemoglobin 95.7 Carboxyhemoglobin Methemoglobin Reduced Hemoglobin Total Hemoglobin 11.1 L O2 Delivery Device Nasal cannula O2 Liters/Min 2.0 FiO2 28 Sodium 134 L Potassium 3.2 L Chloride 102 Carbon Dioxide 24 Anion Gap 8 BUN 11 Creatinine 1.10 H Estim Creat Clear Calc Not Reportable Estimated GFR 47 L Glucose 200 H POC Capillary Glucose 164 H Hemoglobin A1c 7.2 H Lactic Acid Calcium 7.7 L Magnesium 1.5 L Total Bilirubin AST ALT Alkaline Phosphatase Total Creatine Kinase NT-Pro-B Natriuret Pep Total Protein Albumin TSH (Reflex) Urine Color Urine Appearance Urine pH Ur Specific [place] Urine Protein Urine Glucose (UA) Urine Ketones Ur Blood (Man) Urine Nitrate Urine Bilirubin Urine Urobilinogen Leukocyte Esterase Rfl Urine RBC Urine WBC Ur Squamous Epith Cells Urine Bacteria Urine Casts Influenza A (RT-PCR) Influenza B (RT-PCR) RSV (RT-PCR) SARS-CoV-2 RNA (RT-PCR) 05/12/24 05/12/24 05/12/24 05:45 05:45 08:24 WBC RBC Hgb Hct MCV MCH MCHC RDW Plt Count MPV Immature Gran % (Auto) Neut % (Auto) Lymph % (Auto) [place] % (Auto) Eos % (Auto) Baso % (Auto) Lymph # (Auto) [place] # (Auto) Eos # (Auto) Baso # (Auto) Abs Immat Gran (auto) Absolute Neuts (auto) Absolute Nucleated RBC Nucleated RBC % Puncture Site ABG pH ABG pCO2 ABG pO2 ABG PO2/FiO2 Ratio ABG HCO3 ABG O2 Saturation ABG O2 Content ABG Base Excess A-a Gradient Oxyhemoglobin Carboxyhemoglobin Methemoglobin Reduced Hemoglobin Total Hemoglobin O2 Delivery Device O2 Liters/Min FiO2 Sodium Potassium Chloride Carbon Dioxide Anion Gap BUN Creatinine Estim Creat Clear Calc Estimated GFR Glucose POC Capillary Glucose 239 H Hemoglobin A1c Lactic Acid Calcium Magnesium Cancelled Total Bilirubin 0.5 AST 34 ALT 15 Alkaline Phosphatase 91 Total Creatine Kinase 598 H Cancelled NT-Pro-B Natriuret Pep Total Protein 6.0 L Albumin 3.4 L TSH (Reflex) 0.778 Urine Color Urine Appearance Urine pH Ur Specific [place] Urine Protein Urine Glucose (UA) Urine Ketones Ur Blood (Man) Urine Nitrate Urine Bilirubin Urine Urobilinogen Leukocyte Esterase Rfl Urine RBC Urine WBC Ur Squamous Epith Cells Urine Bacteria Urine Casts Influenza A (RT-PCR) Influenza B (RT-PCR) RSV (RT-PCR) SARS-CoV-2 RNA (RT-PCR)
--- NOTE | 2024-05-12 10:26 | PC.NURSE ---
Patient has a history of multiple drug allergies and reactions. According to patients son, please take over current list of allergies in patients history. Patients family is not able to verify if all allergies are still current and patient is admitted with AMS and unable to provide any history at this time.
--- NOTE | 2024-05-12 10:29 | PC.NURSE ---
Per hospitalist, hold all morning medications and food until patient is more alert. Patient received sedatives during previous shift and is still very drowsy at 1030 on 05/12/24.
[2024-05-12 12:17] LABS: Glucose Point of Care 224 mg/dl (65-105)
--- NOTE | 2024-05-12 14:06 | PCSTNOTE ---
Please refer to the Bedside Swallow Evaluation in the EMR. Please note, silent aspiration cannot be ruled out at bedside. The above confused (Ox1-2) & somnolent pt was seen for a bedside swallow evaluation. She was positioned upright in the bed and was presented with thin liquids in controlled and uncontrolled amounts via a cup and straw and applesauce in controlled amounts via a spoon. Pt responded to questions but did not keep eyes open and was not able to follow directives for an oral motor exam. Pt presented with upper dentures only; lower dentures were at home; pt stated, family confirmed, she eats with upper and lower dentures in place; therefore solids were not tested at this time. With the above presentations/trials, the oral stages appeared WFL but with a brief abnormal hold. No leakage or pocketing was noted. Due to the pt's large neck, palpation of laryngeal elevation was not possible but no overt s/s of aspiration were exhibited. Impressions: functional swallowing for a puree diet with thin liquids. Recommendations: Puree diet with thin liquids; re assess solids when pt's REBEKA improves and when lower dentures are here.
[2024-05-12 16:32] LABS: Glucose Point of Care 192 mg/dl (65-105)
[2024-05-12] MEDS: ursodioL 300 MG CAPSULE PO (17:21)
[2024-05-12] MEDS: METOPROLOL TARTRATE 12.5 MG TABLET PO (20:01)
[2024-05-12] MEDS: FAMOTIDINE 20 MG TABLET PO (20:02)
[2024-05-12 21:06] LABS: Glucose Point of Care 185 mg/dl (65-105)
[2024-05-12] MEDS: hydrOXYzine HCL 25 MG TABLET PO (22:22)
[2024-05-13] VITALS (22 sets, daily range): BP systolic 124–139; BP diastolic 54–90; PULSE 12–918; RESP 18–24; TEMP 36.6–36.7; O2SAT 87–98; BMI 10.0
--- NOTE | 2024-05-13 00:49 | ECG_ITS ---
Test Date: 2024-05-13 01:12:45 Measurements Intervals [place] Rate: 89 P: 85 TN: 178 QRS: 59 QRSD: 121 T: 24 QT: 363 QTc: 442 Interpretive Statements SINUS RHYTHM WITH FREQUENT SUPRAVENTRICULAR PREMATURE COMPLEXES RIGHT BUNDLE BRANCH BLOCK [120+ ms QRS DURATION, UPRIGHT V1, 40+ ms S IN I/aVL/V4/V5/V6] Compared to ECG 05/11/2024 18:27:48 Right bundle-branch block now present Electronically Signed On 05-13-2024 14:53:55 [employer]IR [employer] by Adarsh Dowd M.D.
[2024-05-13] MEDS: IPRATROPIUM 0.5 MG/ALBUTEROL SULFATE 2.5 MG AMPUL.NEB 3 ML INHALATION ×4 (01:15→19:37)
--- NOTE | 2024-05-13 01:20 | PC.NURSE ---
Patient tachycardic with rate upwards of 120 at times and irregular. [employer] contacted hospitalist for order for stat EKG.
[2024-05-13] MEDS: METOPROLOL TARTRATE INJ 5 MG/5 ML VIAL (03:55)
[2024-05-13] MEDS: METOPROLOL TARTRATE 25 MG TABLET PO (05:50)
[2024-05-13 07:40] LABS: Basophils Percent Auto 0.2 % (0.2-1.2); Eosinophils Percent Auto 0.1 % (0-4.4); Hemoglobin 9.9 g/dL (12.0-15.0); Immature Granulocyte Absolute 0.12 K/mm3 (0.00-0.031); Immature Granulocyte Percent A 0.7 % (0-0.5); Lymphocytes Percent Auto 9.5 % (18.3-44.2); Mean Corpuscular Hemoglobin 30.7 pg (26-34); Mean Corpuscular Volume 102.2 fl (80-100); Mean Platelet Volume 9.2 fl (7.4-10.4); Monocytes Percent Auto 5.7 % (2.6-8.5); Neutrophils Absolute Auto 14.2 K/mm3 (1.3-6.7); Neutrophils Percent Auto 83.8 % (45.5-73.1); Nucleated Red Blood Cells Perc 0.1 % (0.0-0.2); Platelet Count Result 309 k/mm3 (150-375); Red Blood Count 3.23 M/mm3 (4.2-5.4); Red Cell Distribution Width 15.5 % (11.5-14.5); White Blood Count 16.9 K/mm3 (4.5-10.0)
--- NOTE | 2024-05-13 07:53 | PC.NURSE ---
Patient continued to be tachycardic after administration of Metoprolol 5 mg at 0355. Bilingual Customer Service Specialist reached out to hospitalist for new orders - see MAR
[2024-05-13 08:19] LABS: Alanine Aminotransferase 19 U/L (6-35); Albumin Level 3.4 g/dL (3.5-5.1); Alkaline Phosphatase 76 U/L (38-126); Anion Gap 9 mmol/L (4-12); Aspartate Amino Transferase 49 U/L (14-36); Bilirubin,Total 0.5 mg/dL (0.2-1.3); Blood Urea Nitrogen 21 mg/dL (7-17); Calcium 8.6 mg/dL (8.4-10.2); Carbon Dioxide 22 mmol/L (22-30); Chloride 104 mmol/L (98-107); Creatine Kinase 600 U/L (30-135); Estimated Glomerular Filt Rate 47; Glucose 192 mg/dL (65-110); Magnesium 1.9 mg/dL (1.6-2.3); Potassium 3.6 mmol/L (3.4-5.0); Sodium 135 mmol/L (137-145)
[2024-05-13 08:35] LABS: Glucose Point of Care 208 mg/dl (65-105)
[2024-05-13] MEDS: PANTOPRAZOLE 40 MG TABLET PO (09:40)
[2024-05-13] MEDS: ISOSORBIDE MONONITRATE 60 MG TAB.ER.24H PO (09:40)
[2024-05-13] MEDS: ursodioL 300 MG CAPSULE PO (09:40)
[2024-05-13] MEDS: DOCUSATE SODIUM 100 MG CAPSULE PO (09:40)
[2024-05-13] MEDS: LOSARTAN POTASSIUM 50 MG TABLET PO (09:40)
[2024-05-13] MEDS: ASPIRIN 81 MG ENTERIC TABLET PO (09:40)
[2024-05-13] MEDS: LORATADINE 10 MG TABLET PO (09:40)
[2024-05-13] MEDS: ENOXAPARIN 40 MG/0.4 ML SYRINGE SUB-Q (09:41)
[2024-05-13] MEDS: dilTIAZem HCL CD 300 MG CAP.24HR PO (09:41)
[2024-05-13] MEDS: INSULIN ASPART (*BKC) 100 UNITS/ML SUB-Q ×2 (09:41→13:20)
[2024-05-13] MEDS: METOPROLOL TARTRATE 12.5 MG TABLET PO ×2 (09:41→20:09)
[2024-05-13] MEDS: AZELASTINE HCL NASAL 0.1% 137 MCG/SPR 30 ML BTL 1 SPRAY NASAL (09:42)
[2024-05-13 10:17] LABS: Folic Acid 9.9 ng/mL (2.76->20); Vitamin B12 < 159.0 pg/mL (239-931)
[2024-05-13 11:55] LABS: Glucose Point of Care 236 mg/dl (65-105)
[2024-05-13] MEDS: CYANOCOBALAMIN 1,000 MCG TABLET 1000 MCG PO (13:20)
[2024-05-13 17:03] LABS: Glucose Point of Care 127 mg/dl (65-105)
--- NOTE | 2024-05-13 17:36 | P.PNIM_ITS ---
Progress Note: A&P Assessment and Plan (1) Sepsis: Qualifiers: Sepsis acute organ dysfunction status: unspecified Sepsis type: sepsis due to unspecified organism Qualified Code(s): A41.9 - Sepsis, unspecified o rganism Code(s): A41.9 - Sepsis, unspecified organism Status: Acute Assessment and Plan: Patient meets severe sepsis criteria with leukocytosis, hypothermia, tachypnea, AMS and tachycardia UA c/w UTI. CXR showing mild airspace disease bilateral LL (but CT Abd showing only small effusions and atelectasis). WBC was 14K. Suspect sepsis related to UTI. She received adequate fluid resuscitation in ER. Started on Rocephin once Blood cultures and urine cultures collected CT Abd/pelvis showing no acute findings. Multiple allergies to abx. WBC higher today at 17K (related to steroids?) but clinically better. BCx NGTD. UCx growing GNB. Continue Rocephin for now. (2) Acute hypoxic respiratory failure: Code(s): J96.01 - Acute respiratory failure with hypoxia Status: Acute Assessment and Plan: Patient developed acute hypoxic respiratory failure with O2 sats of 88% that may have started after a dose of Ativan. She is noted to be wheezing but no hx of COPD, tobacco abuse or asthma; some secondhand smoke exposure CXR as above. BNP 1050. ABG showing 7.43/36/83 on 3L. She received Solu-Medrol 125mg once in ED. Respiratory status improved significantly after nebulizer treatment. Repeat CXR showing increased haziness LLL and RUL. Lasix IV given once. UOP has not been brisk Continue scheduled DuoNebs. Patient may have a component of underlying LOYD playing a component in the hypoxia. Stable on 1-2 liters O2. Reluctant for further steroids since may worsen her confusion Continue supplemental oxygen as needed. Wean as tolerated. (3) UTI (urinary tract infection): Qualifiers: Hematuria presence: without hematuria Urinary tract infection type: acute cystitis Qualified Code(s): N30.00 - Acute cystitis without hematuria Code(s): N39.0 - Urinary tract infection, site not specified Status: Acute Assessment and Plan: UA is consistent with UTI. UCx collected. Rocephin started. UTI likely in part due to incomplete bladder emptying was evidence of urinary retention. Bennett catheter was placed. UCx pending. Follow up on UCx results. (4) Altered mental status: Qualifiers: Altered mental status type: delirium Qualified Code(s): R41.0 - Disorientation, unspecified Code(s): R41.82 - Altered mental status, unspecified Status: Acute Assessment and Plan: Patient has metabolic encephalopathy resulting in delirium. Ativan given in ED. Two doses of IM Zyprexa and Ativan given after admission. Avoid benzodiazepines as this seemed to almost worsen the patient's agitation. Patient's agitation improved significantly after Bennett catheter placement. TSH normal. CT brain showing no acute process. B12 <159. AMS related to UTI with urine retention and/or B12 deficiency. Zyprexa has been ordered as needed. Speech recommended Pureed diet which was started. Hopefully this will improve. Follow. Neuro checks. Speech consult. PT/OT. Replace B12. (5) Lactic acidosis: Code(s): E87.20 - Acidosis, unspecified Status: Acute Assessment and Plan: Related to sepsis picture LA 2.7 and now trending down. (6) Hypomagnesemia: Code(s): E83.42 - Hypomagnesemia Status: Acute Assessment and Plan: Patient with hypomagnesemia in the ER which was replaced Repeat Mag level better (7) Urinary retention with incomplete bladder emptying: Code(s): R33.9 - Retention of urine, unspecified Status: Acute Assessment and Plan: As above (8) Type 2 diabetes mellitus with hyperglycemia, with long-term current use of insulin: Code(s): E11.65 - Type 2 diabetes mellitus with hyperglycemia; Z79.4 - FDC (current) use of insulin Status: Acute Assessment and Plan: A1c 7.2%. The patient's blood glucose was reviewed on 05/13 Glucose elevated in low 200's Continue AccuCheks covering with sliding scale. Hypoglycemia protocol available as needed. Continue diabetic diet. Add low dose Lantus tonight. Continue to follow. (9) Elevated CK: Code(s): R74.8 - Abnormal levels of other serum enzymes Status: Acute Assessment and Plan: Patient had some mild CK elevation likely in part due to her agitation and restless hyperactive movements. She also received IM injections. TCK 600 today. Follow (10) Hyponatremia: Code(s): E87.1 - Hypo-osmolality and hyponatremia Status: Acute Assessment and Plan: Patient has chronic mild hyponatremia Sodium stable in mid to low 130's. Follow Plan DVT prophylaxis - Lovenox Code status - DNR Subjective Date/time seen: 05/13/24 17:36 Interval history: 81yo female with DM, HTN, CAD, CVA, CKD and overactive bladder with recent UTI in November who presented to the ER via EMS with confusion. The patient arrived to the ER orient x1 and was agitated and restless. Patient is more awake but still confused so hx is unreliable. Review of Systems Review of Systems: ROS unobtainable: Yes unobtainable due to medical condition Exam Narrative: AF 97.9 139/54 91 21 92% 2L Gen - NARD sitting up in bed Chest - audible expir wheeze. bibasilar crackles. CV - RRR S1/S2. Tele showing probably normal sinus with PACs. Abd - Soft, diffusely tender but improved. +BS - Bennett secured draining clear yellow urine Ext - mostly bilateral nonpitting edema with wrinkling Neuro - more awake. she is oriented to 'hospital', month and the new [facility] but not year (1923). She however is still confused. No focal weakness. speech is mostly clear and she does engage with examiner. Psych - difficult to assess. laughs inappropriately. Skin - Warm and dry Objective Data Vital Signs Vital Signs: Vital Signs - 24 hr 05/12/24 20:00 05/12/24 20:01 05/12/24 20:11 Temperature 97.8 F Pulse Rate 142 H 108 H 101 H Respiratory Rate 20 Blood Pressure 154/94 H Pulse Oximetry 98 Oxygen Delivery Oxygen Flow Rate Fraction of Inspired Oxygen 05/12/24 20:17 05/12/24 20:17 05/12/24 20:27 Temperature Pulse Rate 101 H 126 H Respiratory Rate 20 20 Blood Pressure Pulse Oximetry 98 Oxygen Delivery Nasal Cannula Oxygen Flow Rate 2 Fraction of Inspired Oxygen 05/13/24 00:00 05/13/24 01:15 05/13/24 01:26 Temperature Pulse Rate 84 122 H 119 H Respiratory Rate 22 H 20 Blood Pressure Pulse Oximetry Oxygen Delivery Oxygen Flow Rate Fraction of Inspired Oxygen 05/13/24 03:55 05/13/24 04:00 05/13/24 05:50 Temperature Pulse Rate 121 H 91 125 H Respiratory Rate Blood Pressure Pulse Oximetry Oxygen Delivery Oxygen Flow Rate Fraction of Inspired Oxygen 05/13/24 07:21 05/13/24 07:22 05/13/24 07:22 Temperature Pulse Rate 118 H Respiratory Rate 22 H Blood Pressure Pulse Oximetry 87 L 93 Oxygen Delivery Room Air Nasal Cannula Oxygen Flow Rate 1 Fraction of Inspired Oxygen 05/13/24 07:32 05/13/24 08:00 05/13/24 08:00 Temperature Pulse Rate 119 H 123 H 126 H Respiratory Rate 22 H 22 H Blood Pressure Pulse Oximetry 98 Oxygen Delivery Nasal Cannula Oxygen Flow Rate 2 Fraction of Inspired Oxygen 05/13/24 09:12 05/13/24 09:41 05/13/24 12:00 Temperature 98.1 F Pulse Rate 101 H 123 H 123 H Respiratory Rate 20 Blood Pressure 124/90 Pulse Oximetry 98 Oxygen Delivery Oxygen Flow Rate Fraction of Inspired Oxygen 05/13/24 13:50 05/13/24 14:05 05/13/24 14:15 Temperature Pulse Rate 97 102 H Respiratory Rate 22 H 22 H Blood Pressure Pulse Oximetry Oxygen Delivery Nasal Cannula Oxygen Flow Rate 2 Fraction of Inspired Oxygen 05/13/24 14:19 05/13/24 16:00 Temperature 97.9 F Pulse Rate 91 918 H Respiratory Rate 21 H Blood Pressure 139/54 L Pulse Oximetry 92 Oxygen Delivery Oxygen Flow Rate Fraction of Inspired Oxygen Intake/Output Intake/Output: Intake & Output 05/10/24 05/11/24 05/12/24 05/13/24 23:59 23:59 23:59 23:59 Intake Total 2100 50 320 Output Total 825 Balance 2100 -775 320 Meds/Results Medications: Active Medications Generic Name Dose Route Start Last Admin Trade Name Freq PRN Reason Stop Dose Admin Acetaminophen 650 mg 05/11/24 18:37 Acetaminophen 325 Mg Tablet PO Q4H PRN Mild Pain (1-3) or Fever Albuterol/Ipratropium 3 ml 05/12/24 02:00 05/13/24 14:05 Ipratropium 0.5 Mg/Albuterol Sulfate 2.5 Mg Ampul.Neb 3 Ml INHALATION 3 ml Q6HRT PAPI Administration Aspirin 81 mg 05/12/24 09:00 05/13/24 09:40 Aspirin 81 Mg Enteric Tablet PO 81 mg DAILY PAPI Administration Azelastine HCl 1 spray 05/11/24 22:10 05/13/24 09:42 Azelastine Hcl Nasal 0.1% 137 Mcg/Spr 30 Ml Btl NASAL 1 spray Q12HR PAPI Administration Cyanocobalamin 1,000 mcg 05/14/24 09:00 Cyanocobalamin Inj 1,000 Mcg/Ml Vial IM 05/16/24 09:01 DAILY PAPI Cyanocobalamin 1,000 mcg 05/13/24 12:20 05/13/24 13:20 Cyanocobalamin 1,000 Mcg Tablet PO 1,000 mcg QAM PAPI Administration Dextrose 12.5 gm 05/11/24 18:37 Dextrose 50% 25 Gm/50 Ml Syringe IV PUSH PRN PRN Hypoglycemia Protocol Diltiazem HCl 300 mg 05/12/24 09:00 05/13/24 09:41 Diltiazem Hcl Cd 300 Mg Cap.24hr PO 300 mg DAILY PAPI Administration Docusate Sodium 100 mg 05/12/24 09:00 05/13/24 09:40 Docusate Sodium 100 Mg Capsule PO 100 mg DAILY PAPI Administration Enoxaparin Sodium 40 mg 05/12/24 09:00 05/13/24 09:41 Enoxaparin 40 Mg/0.4 Ml Syringe SUB-Q 40 mg DAILY PAPI Administration Famotidine 20 mg 05/12/24 21:00 05/12/24 20:02 Famotidine 20 Mg Tablet PO 20 mg QHS PAPI Administration Glucagon 1 mg 05/11/24 18:37 Glucagon For Inj 1 Mg Vial IM PRN PRN Hypoglycemia Protocol Glucose 15 gm 05/11/24 18:37 Glucose Oral Gel 15 Gm Of Glucse In 37.5 Gm Tube PO PRN PRN Hypoglycemia Protocol Guaifenesin 600 mg 05/11/24 22:09 Guaifenesin 12 Hr 600 Mg Tabcr PO Q12H PRN congestion Hydroxyzine HCl 25 mg 05/11/24 22:09 05/12/24 22:22 Hydroxyzine Hcl 25 Mg Tablet PO 25 mg Q6-8H PRN Administration Anxiety Ceftriaxone Sodium 1 gm in 50 mls @ 100 mls/hr 05/12/24 12:00 05/13/24 13:19 Rocephin 1 Gm/Ns 50 Ml IVPB 100 mls/hr Q24H PAPI Administration Dextrose 1,000 mls @ 100 mls/hr 05/11/24 18:37 Dextrose 5% 1,000 Ml IVPB PRN PRN Hypoglycemia Protocol Insulin Aspart 4 - 8 units 05/12/24 08:00 05/13/24 13:20 Insulin Aspart (*Bkc) 100 Units/Ml SUB-Q 4 units TIDWM PAPI Administration Protocol Insulin Aspart 2 - 4 units 05/12/24 21:00 05/12/24 21:17 Insulin Aspart (*Bkc) 100 Units/Ml SUB-Q Not Given HS PAPI Protocol Insulin Human Isoph/Insulin Regular 12 units 05/12/24 09:00 05/12/24 10:40 Insulin Human Isophan/Regular 70/30 (*Bkc) 100 Units/Ml SUB-Q Not Given BID PAPI Isosorbide Mononitrate 60 mg 05/12/24 09:00 05/13/24 09:40 Isosorbide Mononitrate 60 Mg Tab.Er.24h PO 60 mg DAILY PAPI Administration Loratadine 10 mg 05/12/24 09:00 05/13/24 09:40 Loratadine 10 Mg Tablet PO 10 mg DAILY PAPI Administration Losartan Potassium 50 mg 05/12/24 09:00 05/13/24 09:40 Losartan Potassium 50 Mg Tablet PO 50 mg DAILY PAPI Administration Metoprolol Tartrate 12.5 mg 05/12/24 09:00 05/13/24 09:41 Metoprolol Tartrate 12.5 Mg Tablet PO 12.5 mg Q12HR PAPI Administration Olanzapine 5 mg 05/11/24 23:42 Olanzapine 5 Mg Tablet PO Q8H PRN Delirium Ondansetron HCl 4 mg 05/11/24 18:37 Ondansetron Inj 4 Mg/2 Ml Vial IV PUSH Q4H PRN Nausea Pantoprazole Sodium 40 mg 05/12/24 09:00 05/13/24 09:40 Pantoprazole 40 Mg Tablet PO 40 mg QAM PAPI Administration Perflutren Lipid Microsphere 0 ml 05/12/24 04:32 Perflutren Lipid Microspheres 1.5 Ml Vial Diluted To 10 Ml Total Volume IV PUSH 05/15/24 04:32 ONCE PRN adequate visualization Protocol Sodium Chloride 2 spray 05/11/24 22:09 Saline 0.65% Husam Soln 44 Ml Btl NASAL QID PRN dryness Ursodiol 300 mg 05/12/24 09:00 05/13/24 09:40 Ursodiol 300 Mg Capsule PO 300 mg BID PAPI Administration Radiology Results: ITS Impressions Head CT 05/11/24 15:18 IMPRESSION: 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 Correlate for worsening pulmonary edema/atelectasis versus pneumonia. Possible minimal pleural effusions. Increasing interstitial pattern in the right upper lobe, nonspecific. Abdomen/Pelvis CT 05/12/24 16:28 IMPRESSION: 1. Small right and tiny left pleural effusions. 2. Moderate colonic diverticulosis. Labs Labs: Laboratory Results - last 24 hr 05/12/24 05/13/24 05/13/24 20:16 05:55 08:15 WBC 16.9 H RBC 3.23 L Hgb 9.9 L Hct 33.0 L MCV 102.2 H D MCH 30.7 MCHC 30.0 L RDW 15.5 H Plt Count 309 MPV 9.2 Immature Gran % (Auto) 0.7 H Neut % (Auto) 83.8 H Lymph % (Auto) 9.5 L Lanier % (Auto) 5.7 Eos % (Auto) 0.1 Baso % (Auto) 0.2 Lymph # (Auto) 1.60 Lanier # (Auto) 1.0 H Eos # (Auto) 0.0 Baso # (Auto) 0.0 Abs Immat Gran (auto) 0.12 H Absolute Neuts (auto) 14.2 H Absolute Nucleated RBC 0.020 H Nucleated RBC % 0.1 Sodium 135 L Potassium 3.6 Chloride 104 Carbon Dioxide 22 Anion Gap 9 BUN 21 H D Creatinine 1.10 H Estim Creat Clear Calc Not Reportable Estimated GFR 47 L Glucose 192 H POC Capillary Glucose 185 H 208 H Calcium 8.6 Magnesium 1.9 Total Bilirubin 0.5 AST 49 H ALT 19 Alkaline Phosphatase 76 Total Creatine Kinase 600 H Total Protein 7.0 Albumin 3.4 L Vitamin B12 < 159.0 L Folate 9.9 05/13/24 05/13/24 11:42 17:01 WBC RBC Hgb Hct MCV MCH MCHC RDW Plt Count MPV Immature Gran % (Auto) Neut % (Auto) Lymph % (Auto) Lanier % (Auto) Eos % (Auto) Baso % (Auto) Lymph # (Auto) Lanier # (Auto) Eos # (Auto) Baso # (Auto) Abs Immat Gran (auto) Absolute Neuts (auto) Absolute Nucleated RBC Nucleated RBC % Sodium Potassium Chloride Carbon Dioxide Anion Gap BUN Creatinine Estim Creat Clear Calc Estimated GFR Glucose POC Capillary Glucose 236 H 127 H Calcium Magnesium Total Bilirubin AST ALT Alkaline Phosphatase Total Creatine Kinase Total Protein Albumin Vitamin B12 Folate
[2024-05-13] MEDS: ONDANSETRON INJ 4 MG/2 ML VIAL IV PUSH (18:56)
[2024-05-13] MEDS: hydrOXYzine HCL 25 MG TABLET PO (20:10)
[2024-05-13] MEDS: OLANZapine 5 MG TABLET PO (20:10)
[2024-05-13] MEDS: FAMOTIDINE 20 MG TABLET PO (20:10)
[2024-05-13] MEDS: INSULIN GLARGINE (*BKC) 100 UNITS/ML 10 UNITS SUB-Q (20:21)
[2024-05-13 23:38] LABS: Glucose Point of Care 170 mg/dl (65-105)
[2024-05-14] VITALS (17 sets, daily range): BP systolic 136–145; BP diastolic 61–83; PULSE 82–124; RESP 18–22; TEMP 36.4–36.8; O2SAT 93–98
[2024-05-14] MEDS: IPRATROPIUM 0.5 MG/ALBUTEROL SULFATE 2.5 MG AMPUL.NEB 3 ML INHALATION ×4 (02:50→22:07)
[2024-05-14 06:19] LABS: Basophils Percent Auto 0.2 % (0.2-1.2); Eosinophils Absolute Auto 0.1 K/mm3 (0-0.3); Eosinophils Percent Auto 0.4 % (0-4.4); Hematocrit 28.4 % (37.0-47.0); Hemoglobin 9.1 g/dL (12.0-15.0); Immature Granulocyte Absolute 0.13 K/mm3 (0.00-0.031); Immature Granulocyte Percent A 1.1 % (0-0.5); Lymphocytes Absolute Auto 1.83 K/mm3 (0.9-3.2); Lymphocytes Percent Auto 14.9 % (18.3-44.2); Mean Corpuscular Volume 96.6 fl (80-100); Mean Platelet Volume 9.1 fl (7.4-10.4); Monocytes Absolute Auto 0.8 K/mm3 (0.1-0.6); Monocytes Percent Auto 6.8 % (2.6-8.5); Neutrophils Absolute Auto 9.4 K/mm3 (1.3-6.7); Neutrophils Percent Auto 76.6 % (45.5-73.1); Platelet Count Result 294 k/mm3 (150-375); Red Blood Count 2.94 M/mm3 (4.2-5.4); Red Cell Distribution Width 15.5 % (11.5-14.5); White Blood Count 12.3 K/mm3 (4.5-10.0)
[2024-05-14 06:37] LABS: Albumin Level 3.3 g/dL (3.5-5.1); Anion Gap 9 mmol/L (4-12); Blood Urea Nitrogen 32 mg/dL (7-17); Calcium 8.6 mg/dL (8.4-10.2); Carbon Dioxide 27 mmol/L (22-30); Chloride 102 mmol/L (98-107); Creatine Kinase 321 U/L (30-135); Estimated Glomerular Filt Rate 39; Glucose 171 mg/dL (65-110); Magnesium 1.8 mg/dL (1.6-2.3); Phosphorus 2.9 mg/dL (2.5-4.5); Potassium 3.6 mmol/L (3.4-5.0); Sodium 138 mmol/L (137-145)
[2024-05-14 08:14] LABS: Glucose Point of Care 178 mg/dl (65-105)
[2024-05-14] MEDS: ASPIRIN 81 MG ENTERIC TABLET PO (09:25)
[2024-05-14] MEDS: CYANOCOBALAMIN INJ 1,000 MCG/ML VIAL 1000 MCG IM (09:25)
[2024-05-14] MEDS: PANTOPRAZOLE 40 MG TABLET PO (09:25)
[2024-05-14] MEDS: LORATADINE 10 MG TABLET PO (09:25)
[2024-05-14] MEDS: CYANOCOBALAMIN 1,000 MCG TABLET 1000 MCG PO (09:25)
[2024-05-14] MEDS: ISOSORBIDE MONONITRATE 60 MG TAB.ER.24H PO (09:25)
[2024-05-14] MEDS: DOCUSATE SODIUM 100 MG CAPSULE PO (09:25)
[2024-05-14] MEDS: ursodioL 300 MG CAPSULE PO ×2 (09:25→18:14)
[2024-05-14] MEDS: LOSARTAN POTASSIUM 50 MG TABLET PO (09:25)
[2024-05-14] MEDS: dilTIAZem HCL CD 300 MG CAP.24HR PO (09:27)
[2024-05-14] MEDS: ENOXAPARIN 40 MG/0.4 ML SYRINGE SUB-Q (09:28)
[2024-05-14] MEDS: METOPROLOL TARTRATE 25 MG TABLET PO ×2 (09:30→20:53)
--- NOTE | 2024-05-14 11:00 | P.PNIM_ITS ---
Progress Note: A&P Assessment and Plan (1) Urinary retention with incomplete bladder emptying: Code(s): R33.9 - Retention of urine, unspecified Status: Acute (2) Type 2 diabetes mellitus with hyperglycemia, with long-term current use of insulin: Code(s): E11.65 - Type 2 diabetes mellitus with hyperglycemia; Z79.4 - FPC (current) use of insulin Status: Acute (3) UTI (urinary tract infection): Qualifiers: Hematuria presence: without hematuria Urinary tract infection type: acute cystitis Qualified Code(s): N30.00 - Acute cystitis without hematuria Code(s): N39.0 - Urinary tract infection, site not specified Status: Acute (4) Altered mental status: Qualifiers: Altered mental status type: delirium Qualified Code(s): R41.0 - Disorientation, unspecified Code(s): R41.82 - Altered mental status, unspecified Status: Acute Plan 81-year-old female with a past medical history of type 2 diabetes mellitus, essential hypertension, coronary artery disease, hyperlipidemia, GERD, CVA, chronic kidney disease, and overactive bladder with recent UTI in November who presented to the ER via EMS with confusion.CT of brain demonstrated 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 But no acute process. UA was consistent with UTI. 1. Acute encephalopathy: Likely in setting of UTI Will monitor closely Granddaughter at bedside 2. Urinary tract infection: Continue with ceftriaxone Await urine culture 3. Urinary retention on admission: Will try to remove the Bennett today Bladder scan every 4 hours If bladder scan shows greater than 250 cc, will place Bennett again 4. Acute on chronic hypoxic respiratory failure: As per daughter patient is supposed to wear oxygen at home but she does not wear it Currently on 4 L Continue with DuoNebs Elevated BNP Echocardiogram with normal ejection fraction Will add low-dose Lasix Chest x-ray showed suggestive of atelectasis/pulmonary edema/possible pneumonia Already on ceftriaxone Will not add any other antibiotics for now 5. Diabetes mellitus: Blood glucose checked t.i.d. a.c. and HS Continue with Lantus along with sliding scale insulin Adjust dose as needed 6. History of coronary artery disease: Continue with aspirin, Imdur, losartan, Cardizem, metoprolol 7. Code status: Do not resuscitate 8. DVT prophylaxis: Lovenox 9. Disposition: Pending improvement, patient lives at home by herself, will likely need placement Time Spent With Patient Time: 39 mins Subjective Date/time seen: 05/14/24 11:00 Interval history: remains confused Review of Systems Review of Systems: ROS unobtainable: Yes unobtainable due to mental status Exam Narrative: Gen - sitting in chair Chest - decreased breath sounds with bibasilar crackles. CV - RRR S1/S2. . Abd - Soft,+BS - Bennett secured draining clear yellow urine Ext - mostly bilateral nonpitting edema with wrinkling Neuro - more awake. she is confused Psych - difficult to assess. laughs inappropriately. Skin - Warm and dry Objective Data Vital Signs Vital Signs: Vital Signs - 24 hr 05/13/24 12:00 05/13/24 13:50 05/13/24 14:05 Temperature Pulse Rate 123 H 97 Respiratory Rate 22 H Blood Pressure Pulse Oximetry Oxygen Delivery Nasal Cannula Oxygen Flow Rate 2 Fraction of Inspired Oxygen 05/13/24 14:15 05/13/24 14:19 05/13/24 16:00 Temperature 97.9 F Pulse Rate 102 H 91 918 H Respiratory Rate 22 H 21 H Blood Pressure 139/54 L Pulse Oximetry 92 Oxygen Delivery Oxygen Flow Rate Fraction of Inspired Oxygen 05/13/24 19:37 05/13/24 19:46 05/13/24 19:53 Temperature Pulse Rate 120 H 123 H 97 Respiratory Rate 19 18 24 H Blood Pressure 131/88 Pulse Oximetry 95 Oxygen Delivery Oxygen Flow Rate Fraction of Inspired Oxygen 05/13/24 20:00 05/13/24 20:00 05/13/24 20:09 Temperature Pulse Rate 12 L 97 120 H Respiratory Rate Blood Pressure Pulse Oximetry 95 Oxygen Delivery Nasal Cannula Oxygen Flow Rate 1 Fraction of Inspired Oxygen 2 05/14/24 00:00 05/14/24 02:50 05/14/24 02:58 Temperature Pulse Rate 86 123 H 124 H Respiratory Rate 18 18 Blood Pressure Pulse Oximetry Oxygen Delivery Oxygen Flow Rate Fraction of Inspired Oxygen 05/14/24 04:00 05/14/24 05:24 05/14/24 08:00 Temperature 97.6 F Pulse Rate 108 H 89 Respiratory Rate 22 H Blood Pressure 145/83 H Pulse Oximetry 95 94 Oxygen Delivery Nasal Cannula Oxygen Flow Rate 2 Fraction of Inspired Oxygen 05/14/24 08:27 05/14/24 08:27 05/14/24 08:41 Temperature Pulse Rate 99 90 Respiratory Rate 20 22 H Blood Pressure Pulse Oximetry 93 Oxygen Delivery Nasal Cannula Oxygen Flow Rate 2 Fraction of Inspired Oxygen 05/14/24 09:30 Temperature Pulse Rate 89 Respiratory Rate Blood Pressure Pulse Oximetry Oxygen Delivery Oxygen Flow Rate Fraction of Inspired Oxygen Intake/Output Intake/Output: Intake & Output 05/11/24 05/12/24 05/13/24 05/14/24 23:59 23:59 23:59 23:59 Intake Total 2100 50 420 110 Output Total 825 250 100 Balance 2100 -775 170 10 Meds/Results Medications: Active Medications Generic Name Dose Route Start Last Admin Trade Name Freq PRN Reason Stop Dose Admin Acetaminophen 650 mg 05/11/24 18:37 Acetaminophen 325 Mg Tablet PO Q4H PRN Mild Pain (1-3) or Fever Albuterol/Ipratropium 3 ml 05/12/24 02:00 05/14/24 08:27 Ipratropium 0.5 Mg/Albuterol Sulfate 2.5 Mg Ampul.Neb 3 Ml INHALATION 3 ml Q6HRT PAPI Administration Aspirin 81 mg 05/12/24 09:00 05/14/24 09:25 Aspirin 81 Mg Enteric Tablet PO 81 mg DAILY PAPI Administration Cyanocobalamin 1,000 mcg 05/14/24 09:00 05/14/24 09:25 Cyanocobalamin Inj 1,000 Mcg/Ml Vial IM 05/16/24 09:01 1,000 mcg DAILY PAPI Administration Cyanocobalamin 1,000 mcg 05/13/24 12:20 05/14/24 09:25 Cyanocobalamin 1,000 Mcg Tablet PO 1,000 mcg QAM PAPI Administration Dextrose 12.5 gm 05/11/24 18:37 Dextrose 50% 25 Gm/50 Ml Syringe IV PUSH PRN PRN Hypoglycemia Protocol Diltiazem HCl 300 mg 05/12/24 09:00 05/14/24 09:27 Diltiazem Hcl Cd 300 Mg Cap.24hr PO 300 mg DAILY PAPI Administration Docusate Sodium 100 mg 05/12/24 09:00 05/14/24 09:25 Docusate Sodium 100 Mg Capsule PO 100 mg DAILY PAPI Administration Enoxaparin Sodium 40 mg 05/12/24 09:00 05/14/24 09:28 Enoxaparin 40 Mg/0.4 Ml Syringe SUB-Q 40 mg DAILY PAPI Administration Famotidine 20 mg 05/12/24 21:00 05/13/24 20:10 Famotidine 20 Mg Tablet PO 20 mg QHS PAPI Administration Glucagon 1 mg 05/11/24 18:37 Glucagon For Inj 1 Mg Vial IM PRN PRN Hypoglycemia Protocol Glucose 15 gm 05/11/24 18:37 Glucose Oral Gel 15 Gm Of Glucse In 37.5 Gm Tube PO PRN PRN Hypoglycemia Protocol Guaifenesin 600 mg 05/11/24 22:09 Guaifenesin 12 Hr 600 Mg Tabcr PO Q12H PRN congestion Hydroxyzine HCl 25 mg 05/11/24 22:09 05/13/24 20:10 Hydroxyzine Hcl 25 Mg Tablet PO 25 mg Q6-8H PRN Administration Anxiety Ceftriaxone Sodium 1 gm in 50 mls @ 100 mls/hr 05/12/24 12:00 05/13/24 13:19 Rocephin 1 Gm/Ns 50 Ml IVPB 100 mls/hr Q24H PAPI Administration Dextrose 1,000 mls @ 100 mls/hr 05/11/24 18:37 Dextrose 5% 1,000 Ml IVPB PRN PRN Hypoglycemia Protocol Insulin Aspart 4 - 8 units 05/12/24 08:00 05/14/24 09:23 Insulin Aspart (*Bkc) 100 Units/Ml SUB-Q Not Given TIDWM PAPI Protocol Insulin Aspart 2 - 4 units 05/12/24 21:00 05/13/24 20:10 Insulin Aspart (*Bkc) 100 Units/Ml SUB-Q Not Given HS [facility] Protocol Insulin Glargine 10 units 05/13/24 21:00 05/13/24 20:21 Insulin Glargine (*Bkc) 100 Units/Ml SUB-Q 10 units HS PAPI Administration Isosorbide Mononitrate 60 mg 05/12/24 09:00 05/14/24 09:25 Isosorbide Mononitrate 60 Mg Tab.Er.24h PO 60 mg DAILY PAPI Administration Loratadine 10 mg 05/12/24 09:00 05/14/24 09:25 Loratadine 10 Mg Tablet PO 10 mg DAILY PAPI Administration Losartan Potassium 50 mg 05/12/24 09:00 05/14/24 09:25 Losartan Potassium 50 Mg Tablet PO 50 mg DAILY PAPI Administration Metoprolol Tartrate 25 mg 05/14/24 09:00 05/14/24 09:30 Metoprolol Tartrate 25 Mg Tablet PO 25 mg Q12HR PAPI Administration Olanzapine 5 mg 05/11/24 23:42 05/13/24 20:10 Olanzapine 5 Mg Tablet PO 5 mg Q8H PRN Administration Delirium Ondansetron HCl 4 mg 05/11/24 18:37 05/13/24 18:56 Ondansetron Inj 4 Mg/2 Ml Vial IV PUSH 4 mg Q4H PRN Administration Nausea Pantoprazole Sodium 40 mg 05/12/24 09:00 05/14/24 09:25 Pantoprazole 40 Mg Tablet PO 40 mg QAM PAPI Administration Perflutren Lipid Microsphere 0 ml 05/12/24 04:32 Perflutren Lipid Microspheres 1.5 Ml Vial Diluted To 10 Ml Total Volume IV PUSH 05/15/24 04:32 ONCE PRN adequate visualization Protocol Sodium Chloride 2 spray 05/11/24 22:09 Saline 0.65% Husam Soln 44 Ml Btl NASAL QID PRN dryness Ursodiol 300 mg 05/12/24 09:00 05/14/24 09:25 Ursodiol 300 Mg Capsule PO 300 mg BID PAPI Administration Radiology Results: ITS Impressions Head CT 05/11/24 15:18 IMPRESSION: 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 Correlate for worsening pulmonary edema/atelectasis versus pneumonia. Possible minimal pleural effusions. Increasing interstitial pattern in the right upper lobe, nonspecific. Abdomen/Pelvis CT 05/12/24 16:28 IMPRESSION: 1. Small right and tiny left pleural effusions. 2. Moderate colonic diverticulosis. Labs Labs: Laboratory Results - last 24 hr 05/13/24 05/13/24 05/13/24 11:42 17:01 19:59 WBC RBC Hgb Hct MCV MCH MCHC RDW Plt Count MPV Immature Gran % (Auto) Neut % (Auto) Lymph % (Auto) [place] % (Auto) Eos % (Auto) Baso % (Auto) Lymph # (Auto) [place] # (Auto) Eos # (Auto) Baso # (Auto) Abs Immat Gran (auto) Absolute Neuts (auto) Absolute Nucleated RBC Nucleated RBC % Sodium Potassium Chloride Carbon Dioxide Anion Gap BUN Creatinine Estim Creat Clear Calc Estimated GFR Glucose POC Capillary Glucose 236 H 127 H 170 H Calcium Phosphorus Magnesium Total Creatine Kinase Albumin 05/14/24 05/14/24 05:48 08:12 WBC 12.3 H RBC 2.94 L Hgb 9.1 L Hct 28.4 L MCV 96.6 D MCH 31.0 MCHC 32.0 RDW 15.5 H Plt Count 294 MPV 9.1 Immature Gran % (Auto) 1.1 H Neut % (Auto) 76.6 H Lymph % (Auto) 14.9 L [place] % (Auto) 6.8 Eos % (Auto) 0.4 Baso % (Auto) 0.2 Lymph # (Auto) 1.83 [place] # (Auto) 0.8 H Eos # (Auto) 0.1 Baso # (Auto) 0.0 Abs Immat Gran (auto) 0.13 H Absolute Neuts (auto) 9.4 H Absolute Nucleated RBC 0.000 Nucleated RBC % 0.0 Sodium 138 Potassium 3.6 Chloride 102 Carbon Dioxide 27 Anion Gap 9 BUN 32 H D Creatinine 1.30 H Estim Creat Clear Calc Not Reportable Estimated GFR 39 L Glucose 171 H POC Capillary Glucose 178 H Calcium 8.6 Phosphorus 2.9 Magnesium 1.8 Total Creatine Kinase 321 H Albumin 3.3 L Quality VTE Prophylaxis VTE prophylaxis: pharmacologic ordered
[2024-05-14 11:56] LABS: Glucose Point of Care 213 mg/dl (65-105)
[2024-05-14] MEDS: FUROSEMIDE INJ 40 MG/4 ML VIAL 20 MG IV PUSH (12:50)
[2024-05-14] MEDS: INSULIN ASPART (*BKC) 100 UNITS/ML SUB-Q (12:52)
[2024-05-14 17:18] LABS: Glucose Point of Care 144 mg/dl (65-105)
--- NOTE | 2024-05-14 18:13 | PC.NURSE ---
Unable to get pt to take evening usodiol. Pt refusing to take medication. Pill dissolved into pudding. Pt still refusing.
[2024-05-14] MEDS: FAMOTIDINE 20 MG TABLET PO (20:53)
[2024-05-14] MEDS: OLANZapine 5 MG TABLET PO (20:53)
[2024-05-14] MEDS: hydrOXYzine HCL 25 MG TABLET PO (20:53)
[2024-05-14] MEDS: INSULIN GLARGINE (*BKC) 100 UNITS/ML 10 UNITS SUB-Q (20:53)
[2024-05-14 21:30] LABS: Glucose Point of Care 141 mg/dl (65-105)
[2024-05-15] VITALS (12 sets, daily range): BP systolic 144–145; BP diastolic 58–73; PULSE 64–91; RESP 18–20; TEMP 36.5–36.6; O2SAT 96–99; BMI 10.0
[2024-05-15 06:37] LABS: Basophils Percent Auto 0.3 % (0.2-1.2); Eosinophils Absolute Auto 0.2 K/mm3 (0-0.3); Eosinophils Percent Auto 1.6 % (0-4.4); Hematocrit 28.5 % (37.0-47.0); Hemoglobin 8.8 g/dL (12.0-15.0); Immature Granulocyte Percent A 0.9 % (0-0.5); Lymphocytes Absolute Auto 1.71 K/mm3 (0.9-3.2); Lymphocytes Percent Auto 15.8 % (18.3-44.2); Mean Corpuscular HGB Conc 30.9 g/dl (32-36); Mean Corpuscular Hemoglobin 30.7 pg (26-34); Mean Corpuscular Volume 99.3 fl (80-100); Mean Platelet Volume 9.3 fl (7.4-10.4); Monocytes Percent Auto 9.1 % (2.6-8.5); Neutrophils Absolute Auto 7.8 K/mm3 (1.3-6.7); Neutrophils Percent Auto 72.3 % (45.5-73.1); Nucleated Red Blood Cells Perc 0.3 % (0.0-0.2); Platelet Count Result 285 k/mm3 (150-375); Red Blood Count 2.87 M/mm3 (4.2-5.4); Red Cell Distribution Width 15.6 % (11.5-14.5); White Blood Count 10.8 K/mm3 (4.5-10.0)
[2024-05-15 06:49] LABS: Anion Gap 6 mmol/L (4-12); Blood Urea Nitrogen 39 mg/dL (7-17); Calcium 8.7 mg/dL (8.4-10.2); Carbon Dioxide 31 mmol/L (22-30); Chloride 103 mmol/L (98-107); Estimated Glomerular Filt Rate 39; Glucose 161 mg/dL (65-110); Magnesium 1.9 mg/dL (1.6-2.3); Potassium 3.9 mmol/L (3.4-5.0); Sodium 140 mmol/L (137-145)
[2024-05-15 07:28] LABS: Glucose Point of Care 156 mg/dl (65-105)
[2024-05-15] MEDS: IPRATROPIUM 0.5 MG/ALBUTEROL SULFATE 2.5 MG AMPUL.NEB 3 ML INHALATION ×3 (07:37→23:11)
[2024-05-15] MEDS: ursodioL 300 MG CAPSULE PO ×2 (09:32→18:29)
[2024-05-15] MEDS: ISOSORBIDE MONONITRATE 60 MG TAB.ER.24H PO (09:32)
[2024-05-15] MEDS: LORATADINE 10 MG TABLET PO (09:32)
[2024-05-15] MEDS: FUROSEMIDE INJ 40 MG/4 ML VIAL 20 MG IV PUSH (09:32)
[2024-05-15] MEDS: PANTOPRAZOLE 40 MG TABLET PO (09:32)
[2024-05-15] MEDS: CYANOCOBALAMIN 1,000 MCG TABLET 1000 MCG PO (09:32)
[2024-05-15] MEDS: DOCUSATE SODIUM 100 MG CAPSULE PO (09:32)
[2024-05-15] MEDS: LOSARTAN POTASSIUM 50 MG TABLET PO (09:32)
[2024-05-15] MEDS: ASPIRIN 81 MG ENTERIC TABLET PO (09:32)
[2024-05-15] MEDS: CYANOCOBALAMIN INJ 1,000 MCG/ML VIAL 1000 MCG IM (09:33)
[2024-05-15] MEDS: METOPROLOL TARTRATE 25 MG TABLET PO ×2 (09:35→21:02)
[2024-05-15] MEDS: dilTIAZem HCL CD 300 MG CAP.24HR PO (09:35)
[2024-05-15] MEDS: ENOXAPARIN 40 MG/0.4 ML SYRINGE SUB-Q (09:38)
--- NOTE | 2024-05-15 10:33 | PCNFU ---
Nutrition Follow-Up Complete: Inadequate oral intake related to altered mental status as evidenced by 0% breakfast this morning, breakfast held per MD goal: Improve PO intake at least 50% meals and supplements Patient has limited progress towards goal. We will continue current goal. Pt current nutrition is Pureed, Level 4 with Glucerna shakes BID. Last recorded weight is 98 kg, no new weight to report. Bowel Motility: No BM reported. Labs Reviewed:Glu 161, Cr 1.3, GFR 39, BUN 39 Meds Noted: Colace, Zofran, Pepcid, Protonix Skin: WNL Additional Notes: Patient currently on Pureed, Level 4 diet. Spoke with nursing today regarding intake. Oral intake has been poor and cough noted on thin liquids. Plans for possible MBS today to rule out aspiration. Diet supplements remain on trays providing an addition of 220 kcals and 10 gm protein. Will monitor for any diet modifications with MBS eval. Monitoring intakes, labs, weights, skin, supplement tolerance, plan of care Follow up in 3 days
[2024-05-15 11:49] LABS: Glucose Point of Care 204 mg/dl (65-105)
[2024-05-15] MEDS: INSULIN ASPART (*BKC) 100 UNITS/ML SUB-Q ×3 (12:01→21:02)
--- NOTE | 2024-05-15 12:08 | PCSTNOTE ---
Attempted MBS on this date/11:30am; pt would not awake; spoke with nursing and will try tomorrow.
--- NOTE | 2024-05-15 13:09 | P.PNIM_ITS ---
Progress Note: A&P Assessment and Plan (1) Urinary retention with incomplete bladder emptying: Code(s): R33.9 - Retention of urine, unspecified Status: Acute (2) Type 2 diabetes mellitus with hyperglycemia, with long-term current use of insulin: Code(s): E11.65 - Type 2 diabetes mellitus with hyperglycemia; Z79.4 - intermediate (current) use of insulin Status: Acute (3) UTI (urinary tract infection): Qualifiers: Hematuria presence: without hematuria Urinary tract infection type: acute cystitis Qualified Code(s): N30.00 - Acute cystitis without hematuria Code(s): N39.0 - Urinary tract infection, site not specified Status: Acute (4) Altered mental status: Qualifiers: Altered mental status type: delirium Qualified Code(s): R41.0 - Disorientation, unspecified Code(s): R41.82 - Altered mental status, unspecified Status: Acute Plan 81-year-old female with a past medical history of type 2 diabetes mellitus, essential hypertension, coronary artery disease, hyperlipidemia, GERD, CVA, chronic kidney disease, and overactive bladder with recent UTI in November who presented to the ER via EMS with confusion.CT of brain demonstrated 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 But no acute process. UA was consistent with UTI. 1. Acute encephalopathy: Likely in setting of UTI Mental status is much better today Will monitor closely 2. Urinary tract infection: Continue with ceftriaxone to complete 7 day course Urine culture growing Klebsiella 3. Urinary retention on admission: Bennett was removed yesterday Bladder scan every 4 hours If bladder scan shows greater than 250 cc, will place Bennett again 4. Acute on chronic hypoxic respiratory failure: As per grand daughter patient is supposed to wear oxygen at home but she does not wear it Currently on 2 L Continue with DuoNebs Elevated BNP Echocardiogram with normal ejection fraction Continue with low-dose Lasix Chest x-ray showed suggestive of atelectasis/pulmonary edema/possible pneumonia Already on ceftriaxone Will not add any other antibiotics for now 5. Diabetes mellitus: Blood glucose checked t.i.d. a.c. and HS Continue with Lantus along with sliding scale insulin Add 4 units of mealtime insulin Adjust dose as needed 6. Dysphagia: Awaiting modified barium swallow 7. History of coronary artery disease: Continue with aspirin, Imdur, losartan, Cardizem, metoprolol 8. Code status: Do not resuscitate 9. DVT prophylaxis: Lovenox 10. Disposition: Pending improvement, patient lives at home by herself, will need placement Time Spent With Patient Time: 39 mins Subjective Date/time seen: 05/15/24 13:09 Interval history: More awake and alert today, responding appropriately Review of Systems Review of Systems: All systems reviewed & are unremarkable except as noted in HPI and below Exam Narrative: Gen - sitting in chair Chest - decreased breath sounds with scattered bibasilar crackles. CV - RRR S1/S2. . Abd - Soft,+BS Ext - mostly bilateral nonpitting edema with wrinkling Neuro - more awake. Alert Psych -calm Skin - Warm and dry Objective Data Vital Signs Vital Signs: Vital Signs - 24 hr 05/14/24 13:27 05/14/24 13:38 05/14/24 14:00 Temperature 97.8 F Pulse Rate 84 92 86 Respiratory Rate 20 20 19 Blood Pressure 136/74 Pulse Oximetry 96 Oxygen Delivery Oxygen Flow Rate Fraction of Inspired Oxygen 05/14/24 16:00 05/14/24 20:00 05/14/24 20:51 Temperature 98.2 F Pulse Rate 82 94 Respiratory Rate 20 Blood Pressure 143/61 H Pulse Oximetry 98 98 Oxygen Delivery Nasal Cannula Oxygen Flow Rate 2 Fraction of Inspired Oxygen 05/14/24 20:53 05/14/24 22:08 05/15/24 05:36 Temperature 97.8 F Pulse Rate 96 88 82 Respiratory Rate 20 20 Blood Pressure 145/58 H Pulse Oximetry 98 Oxygen Delivery Oxygen Flow Rate Fraction of Inspired Oxygen 05/15/24 07:37 05/15/24 07:37 05/15/24 07:51 Temperature Pulse Rate 91 89 Respiratory Rate 20 20 Blood Pressure Pulse Oximetry 96 Oxygen Delivery Nasal Cannula Oxygen Flow Rate 2 Fraction of Inspired Oxygen 28 05/15/24 08:00 05/15/24 09:35 Temperature Pulse Rate 80 Respiratory Rate Blood Pressure Pulse Oximetry 96 Oxygen Delivery Nasal Cannula Oxygen Flow Rate 2 Fraction of Inspired Oxygen Intake/Output Intake/Output: Intake & Output 05/12/24 05/13/24 05/14/24 05/15/24 23:59 23:59 23:59 23:59 Intake Total 50 470 285 272 Output Total 825 250 700 150 Balance -775 220 -415 122 Meds/Results Medications: Active Medications Generic Name Dose Route Start Last Admin Trade Name Freq PRN Reason Stop Dose Admin Acetaminophen 650 mg 05/11/24 18:37 Acetaminophen 325 Mg Tablet PO Q4H PRN Mild Pain (1-3) or Fever Albuterol/Ipratropium 3 ml 05/12/24 02:00 05/15/24 07:37 Ipratropium 0.5 Mg/Albuterol Sulfate 2.5 Mg Ampul.Neb 3 Ml INHALATION 3 ml Q6HRT PAPI Administration Aspirin 81 mg 05/12/24 09:00 05/15/24 09:32 Aspirin 81 Mg Enteric Tablet PO 81 mg DAILY PAPI Administration Cyanocobalamin 1,000 mcg 05/14/24 09:00 12 09:33 Cyanocobalamin Inj 1,000 Mcg/Ml Vial IM 05/16/24 09:01 1,000 mcg DAILY PAPI Administration Cyanocobalamin 1,000 mcg 05/13/24 12:20 05/15/24 09:32 Cyanocobalamin 1,000 Mcg Tablet PO 1,000 mcg QAM PAPI Administration Dextrose 12.5 gm 05/11/24 18:37 Dextrose 50% 25 Gm/50 Ml Syringe IV PUSH PRN PRN Hypoglycemia Protocol Diltiazem HCl 300 mg 05/12/24 09:00 05/15/24 09:35 Diltiazem Hcl Cd 300 Mg Cap.24hr PO 300 mg DAILY PAPI Administration Docusate Sodium 100 mg 05/12/24 09:00 05/15/24 09:32 Docusate Sodium 100 Mg Capsule PO 100 mg DAILY PAPI Administration Enoxaparin Sodium 40 mg 05/12/24 09:00 05/15/24 09:38 Enoxaparin 40 Mg/0.4 Ml Syringe SUB-Q 40 mg DAILY PAPI Administration Famotidine 20 mg 05/12/24 21:00 05/14/24 20:53 Famotidine 20 Mg Tablet PO 20 mg QHS PAPI Administration Furosemide 20 mg 05/14/24 11:10 05/15/24 09:32 Furosemide Inj 40 Mg/4 Ml Vial IV PUSH 20 mg DAILY PAPI Administration Glucagon 1 mg 05/11/24 18:37 Glucagon For Inj 1 Mg Vial IM PRN PRN Hypoglycemia Protocol Glucose 15 gm 05/11/24 18:37 Glucose Oral Gel 15 Gm Of Glucse In 37.5 Gm Tube PO PRN PRN Hypoglycemia Protocol Guaifenesin 600 mg 05/11/24 22:09 Guaifenesin 12 Hr 600 Mg Tabcr PO Q12H PRN congestion Hydroxyzine HCl 25 mg 05/11/24 22:09 05/14/24 20:53 Hydroxyzine Hcl 25 Mg Tablet PO 25 mg Q6-8H PRN Administration Anxiety Ceftriaxone Sodium 1 gm in 50 mls @ 100 mls/hr 05/12/24 12:00 05/15/24 11:52 Rocephin 1 Gm/Ns 50 Ml IVPB 05/17/24 12:29 100 mls/hr Q24H PAPI Administration Dextrose 1,000 mls @ 100 mls/hr 05/11/24 18:37 Dextrose 5% 1,000 Ml IVPB PRN PRN Hypoglycemia Protocol Insulin Aspart 4 - 8 units 05/12/24 08:00 05/15/24 12:01 Insulin Aspart (*Bkc) 100 Units/Ml SUB-Q 4 units TIDWM PAPI Administration Protocol Insulin Aspart 2 - 4 units 05/12/24 21:00 05/14/24 21:34 Insulin Aspart (*Bkc) 100 Units/Ml SUB-Q Not Given HS PAPI Protocol Insulin Glargine 10 units 05/13/24 21:00 05/14/24 20:53 Insulin Glargine (*Bkc) 100 Units/Ml SUB-Q 10 units HS APPI Administration Isosorbide Mononitrate 60 mg 05/12/24 09:00 05/15/24 09:32 Isosorbide Mononitrate 60 Mg Tab.Er.24h PO 60 mg DAILY PAPI Administration Loratadine 10 mg 05/12/24 09:00 05/15/24 09:32 Loratadine 10 Mg Tablet PO 10 mg DAILY PAPI Administration Losartan Potassium 50 mg 05/12/24 09:00 05/15/24 09:32 Losartan Potassium 50 Mg Tablet PO 50 mg DAILY PAPI Administration Metoprolol Tartrate 25 mg 05/14/24 09:00 05/15/24 09:35 Metoprolol Tartrate 25 Mg Tablet PO 25 mg Q12HR PAPI Administration Olanzapine 5 mg 05/11/24 23:42 05/14/24 20:53 Olanzapine 5 Mg Tablet PO 5 mg Q8H PRN Administration Delirium Ondansetron HCl 4 mg 05/11/24 18:37 05/13/24 18:56 Ondansetron Inj 4 Mg/2 Ml Vial IV PUSH 4 mg Q4H PRN Administration Nausea Pantoprazole Sodium 40 mg 05/12/24 09:00 05/15/24 09:32 Pantoprazole 40 Mg Tablet PO 40 mg QAM PAPI Administration Sodium Chloride 2 spray 05/11/24 22:09 Saline 0.65% Husam Soln 44 Ml Btl NASAL QID PRN dryness Ursodiol 300 mg 05/12/24 09:00 05/15/24 09:32 Ursodiol 300 Mg Capsule PO 300 mg BID PAPI Administration Radiology Results: ITS Impressions Head CT 05/11/24 15:18 IMPRESSION: 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 Correlate for worsening pulmonary edema/atelectasis versus pneumonia. Possible minimal pleural effusions. Increasing interstitial pattern in the right upper lobe, nonspecific. Abdomen/Pelvis CT 05/12/24 16:28 IMPRESSION: 1. Small right and tiny left pleural effusions. 2. Moderate colonic diverticulosis. Labs Labs: Laboratory Results - last 24 hr 05/14/24 05/14/24 05/15/24 17:15 20:58 06:27 WBC 10.8 H RBC 2.87 L Hgb 8.8 L Hct 28.5 L MCV 99.3 MCH 30.7 MCHC 30.9 L RDW 15.6 H Plt Count 285 MPV 9.3 Immature Gran % (Auto) 0.9 H Neut % (Auto) 72.3 Lymph % (Auto) 15.8 L [place] % (Auto) 9.1 H Eos % (Auto) 1.6 Baso % (Auto) 0.3 Lymph # (Auto) 1.71 [place] # (Auto) 1.0 H Eos # (Auto) 0.2 Baso # (Auto) 0.0 Abs Immat Gran (auto) 0.10 H Absolute Neuts (auto) 7.8 H Absolute Nucleated RBC 0.030 H Nucleated RBC % 0.3 H Sodium 140 Potassium 3.9 Chloride 103 Carbon Dioxide 31 H Anion Gap 6 BUN 39 H Creatinine 1.30 H Estim Creat Clear Calc Not Reportable Estimated GFR 39 L Glucose 161 H POC Capillary Glucose 144 H 141 H Calcium 8.7 Magnesium 1.9 05/15/24 05/15/24 07:26 11:43 WBC RBC Hgb Hct MCV MCH MCHC RDW Plt Count MPV Immature Gran % (Auto) Neut % (Auto) Lymph % (Auto) [place] % (Auto) Eos % (Auto) Baso % (Auto) Lymph # (Auto) [place] # (Auto) Eos # (Auto) Baso # (Auto) Abs Immat Gran (auto) Absolute Neuts (auto) Absolute Nucleated RBC Nucleated RBC % Sodium Potassium Chloride Carbon Dioxide Anion Gap BUN Creatinine Estim Creat Clear Calc Estimated GFR Glucose POC Capillary Glucose 156 H 204 H Calcium Magnesium
--- NOTE | 2024-05-15 13:35 | PC.NURSE ---
Pt on q4 bladder scans. Pt voided 200 prior to bladder scan.
--- NOTE | 2024-05-15 16:00 | PC.NURSE ---
Pt voided 200 prior to 1600 bladder scan
[2024-05-15 16:28] LABS: Glucose Point of Care 201 mg/dl (65-105)
[2024-05-15] MEDS: hydrOXYzine HCL 25 MG TABLET PO (21:02)
[2024-05-15] MEDS: OLANZapine 5 MG TABLET PO (21:02)
[2024-05-15] MEDS: INSULIN GLARGINE (*BKC) 100 UNITS/ML 10 UNITS SUB-Q (21:02)
[2024-05-15] MEDS: FAMOTIDINE 20 MG TABLET PO (21:03)
[2024-05-15 21:22] LABS: Glucose Point of Care 213 mg/dl (65-105)
[2024-05-16] VITALS (16 sets, daily range): BP systolic 129–149; BP diastolic 46–83; PULSE 85–132; RESP 18–22; TEMP 36.1–36.2; O2SAT 95–100
[2024-05-16] MEDS: IPRATROPIUM 0.5 MG/ALBUTEROL SULFATE 2.5 MG AMPUL.NEB 3 ML INHALATION ×4 (03:15→20:27)
[2024-05-16 05:57] LABS: Basophils Percent Auto 0.3 % (0.2-1.2); Eosinophils Absolute Auto 0.2 K/mm3 (0-0.3); Hematocrit 27.1 % (37.0-47.0); Hemoglobin 8.5 g/dL (12.0-15.0); Immature Granulocyte Absolute 0.16 K/mm3 (0.00-0.031); Immature Granulocyte Percent A 1.7 % (0-0.5); Immature Platelet Fraction Pct 3.9 % (0.9-11.2); Lymphocytes Absolute Auto 1.29 K/mm3 (0.9-3.2); Lymphocytes Percent Auto 13.8 % (18.3-44.2); Mean Corpuscular HGB Conc 31.4 g/dl (32-36); Mean Corpuscular Hemoglobin 31.3 pg (26-34); Mean Corpuscular Volume 99.6 fl (80-100); Mean Platelet Volume 10.1 fl (7.4-10.4); Monocytes Absolute Auto 0.9 K/mm3 (0.1-0.6); Monocytes Percent Auto 9.1 % (2.6-8.5); Neutrophils Absolute Auto 6.9 K/mm3 (1.3-6.7); Neutrophils Percent Auto 73.1 % (45.5-73.1); Platelet Count Result 307 k/mm3 (150-375); Red Blood Count 2.72 M/mm3 (4.2-5.4); Red Cell Distribution Width 15.7 % (11.5-14.5); White Blood Count 9.4 K/mm3 (4.5-10.0)
[2024-05-16 06:04] LABS: Anion Gap -1 mmol/L (4-12); Blood Urea Nitrogen 37 mg/dL (7-17); Calcium 8.3 mg/dL (8.4-10.2); Carbon Dioxide 36 mmol/L (22-30); Chloride 101 mmol/L (98-107); Estimated Glomerular Filt Rate 42; Glucose 198 mg/dL (65-110); Potassium 3.3 mmol/L (3.4-5.0); Sodium 136 mmol/L (137-145)
[2024-05-16 08:57] LABS: Glucose Point of Care 206 mg/dl (65-105)
--- NOTE | 2024-05-16 09:20 | PC.NURSE ---
Patient transported to radiology by stretcher for barium swallow. Pt on 2 L NC.
[2024-05-16] MEDS: ursodioL 300 MG CAPSULE PO ×2 (10:01→17:21)
[2024-05-16] MEDS: LORATADINE 10 MG TABLET PO (10:02)
[2024-05-16] MEDS: PANTOPRAZOLE 40 MG TABLET PO (10:02)
[2024-05-16] MEDS: CYANOCOBALAMIN INJ 1,000 MCG/ML VIAL 1000 MCG IM (10:02)
[2024-05-16] MEDS: dilTIAZem HCL CD 300 MG CAP.24HR PO (10:02)
[2024-05-16] MEDS: ISOSORBIDE MONONITRATE 60 MG TAB.ER.24H PO (10:03)
[2024-05-16] MEDS: ASPIRIN 81 MG ENTERIC TABLET PO (10:03)
[2024-05-16] MEDS: LOSARTAN POTASSIUM 50 MG TABLET PO (10:04)
[2024-05-16] MEDS: CYANOCOBALAMIN 1,000 MCG TABLET 1000 MCG PO (10:04)
[2024-05-16] MEDS: DOCUSATE SODIUM 100 MG CAPSULE PO (10:09)
[2024-05-16] MEDS: METOPROLOL TARTRATE 25 MG TABLET PO ×2 (10:10→19:48)
[2024-05-16] MEDS: ENOXAPARIN 40 MG/0.4 ML SYRINGE SUB-Q (10:10)
[2024-05-16] MEDS: FUROSEMIDE INJ 40 MG/4 ML VIAL IV PUSH (10:11)
[2024-05-16] MEDS: INSULIN ASPART (*BKC) 100 UNITS/ML SUB-Q ×3 (10:13→20:08)
--- NOTE | 2024-05-16 10:50 | PCSTNOTE ---
Please refer to the Modified Barium Swallow Evaluation in the EMR. The above patient was seen for a Modified Barium Swallow evaluation due to excessive coughing since the bedside swallow evaluation; pt entered x-ray with excessive cough but had been NPO prior to testing. She was seated for a lateral view and presented with 5cc of thin liquid barium via a spoon, pudding consistency barium via a spoon, small pieces of cracker coated with barium pudding via spoon, and an uncontrolled thin liquid barium bolus. This was presented via a straw & cup. Oral preparatory and oral phase symptoms: difficulty masticating cracker r/t dentition but was eventually able to break down cracker with her tongue. The cracker was eventually cleared without pocketing or leakage. Pharyngeal phase symptoms: very shallow (flash/quickly ejected) laryngeal penetration with thin liquids via cup and straw. Esophageal stage symptoms: none. No aspiration occurred. Impressions: Overall, the patient presents with functional swallow ability throughout all stages of the swallow; however, laryngeal penetration was exhibited intermittently during trials of thin liquids. It appeared to clear without aspiration. Recommendations: No further ST.
[2024-05-16 12:35] LABS: Glucose Point of Care 207 mg/dl (65-105)
--- NOTE | 2024-05-16 13:49 | P.PNIM_ITS ---
Progress Note: A&P Assessment and Plan (1) UTI (urinary tract infection): Qualifiers: Hematuria presence: without hematuria Urinary tract infection type: acute cystitis Qualified Code(s): N30.00 - Acute cystitis without hematuria Code(s): N39.0 - Urinary tract infection, site not specified Status: Acute Assessment and Plan: - Urine culture growing Klebs Aerogenes. - Continue Ceftriaxone per sensitivities. - Blood cultures NGTD. - No fevers and WBC's currently wnl. (2) Altered mental status: Qualifiers: Altered mental status type: delirium Qualified Code(s): R41.0 - Disorientation, unspecified Code(s): R41.82 - Altered mental status, unspecified Status: Acute Assessment and Plan: - Possibly related to above and possibly hypoxemia. - Mentation appears to be improving per nursing staff. - Encouraged with supplemental O2, currently on 2L/NC for sats > 90 %. - Monitor for acute neuro changes. (3) Urinary retention with incomplete bladder emptying: Code(s): R33.9 - Retention of urine, unspecified Status: Acute Assessment and Plan: - Appears improved. - No reports of urinary retention today. - Continue bladder scan PRN. (4) Acute and chronic respiratory failure: Code(s): J96.20 - Acute and chronic respiratory failure, unspecified whether with hypoxia or hypercapnia Status: Acute Assessment and Plan: - As per grand daughter patient is supposed to wear oxygen at home but she does not wear it - Currently on 2 L/NC for sats > 90 %. - Started on PO prednisone. - Continue with scheduled DuoNebs. - BNP 1050. - Echocardiogram with normal ejection fraction - Given an extra dose of IV Lasix. - Continue with low-dose IV Lasix - Chest x-ray; Small bilateral pleural effusions with associated left basilar atelectasis. - Already on ceftriaxone. - We'll monitor closely. (5) Type 2 diabetes mellitus with hyperglycemia, with long-term current use of insulin: Code(s): E11.65 - Type 2 diabetes mellitus with hyperglycemia; Z79.4 - halfway (current) use of insulin Status: Acute Assessment and Plan: - Blood glucose levels slightly elevated. - Continue blood glucose checked t.i.d. a.c. and HS. - Continue with Lantus along with sliding scale insulin - Currently on units of mealtime insulin - Continue to adjust dose as needed (6) Dysphagia: Code(s): R13.10 - Dysphagia, unspecified Status: Acute Assessment and Plan: - Modified barium swallow normal, with no aspiration noted. - Regular diet, chopped with thin liquids recommended. (7) Atherosclerotic heart disease of [place] coronary artery with unspecified angina pectoris: Qualifiers: [place] vs. transplanted heart: [place] heart Qualified Code(s): I25.119 - Atherosclerotic heart disease of [place] coronary artery with unspecified angina pectoris Code(s): I25.119 - Atherosclerotic heart disease of [place] coronary artery with unspecified angina pectoris Status: Acute Assessment and Plan: - Continue aspirin, Imdur, losartan, Cardizem, metoprolol Plan Time Spent With Patient Time with patient: 15 - 25 minutes Subjective Date/time seen: 05/16/24 10:49 Patient states she feels alright and has no complaints. Interval history: Follow-up on patient admitted with UTI and altered mental status. Patient noted with audible wheezing, sleeping with supplemental O2 off. Review of Systems Review of Systems: All systems reviewed & are unremarkable except as noted in HPI and below Exam Narrative: Gen - Slightly confused on bedrest with audible wheezing. HEENT: Atraumatic, PERRL, EOM, moist mucosa. NECK: Supple. Chest - Audible wheezing with bibasilar crackles. CV - RRR, no murmurs. Abd - Soft, non-tender, +BS X4 quadrants. Ext - Slight bilateral nonpitting edema with wrinkling, miladis. LE weakness. Neuro - Slightly confused. No focal neuro deficits noted. Psych -confused but co-operative. Skin - Warm and dry Objective Data Vital Signs Vital Signs: Vital Signs - 24 hr 05/15/24 14:26 05/15/24 14:36 05/15/24 20:00 Temperature Pulse Rate 85 86 Respiratory Rate 20 20 Blood Pressure Pulse Oximetry 99 Oxygen Delivery Nasal Cannula Oxygen Flow Rate 2 05/15/24 21:02 05/15/24 21:19 05/15/24 23:00 Temperature 97.7 F Pulse Rate 64 89 89 Respiratory Rate 18 20 Blood Pressure 144/73 H Pulse Oximetry 99 Oxygen Delivery Oxygen Flow Rate 05/15/24 23:10 05/16/24 03:15 05/16/24 03:24 Temperature Pulse Rate 88 85 89 Respiratory Rate 20 20 Blood Pressure Pulse Oximetry Oxygen Delivery Oxygen Flow Rate 05/16/24 06:00 05/16/24 06:55 05/16/24 06:55 Temperature 97 F L Pulse Rate 100 95 95 Respiratory Rate 20 18 18 Blood Pressure 149/83 H Pulse Oximetry 97 96 Oxygen Delivery Nasal Cannula Oxygen Flow Rate 2 05/16/24 07:05 05/16/24 10:10 05/16/24 12:55 Temperature Pulse Rate 94 132 H 110 H Respiratory Rate 20 20 Blood Pressure Pulse Oximetry Oxygen Delivery Oxygen Flow Rate 05/16/24 13:05 Temperature Pulse Rate 105 H Respiratory Rate 20 Blood Pressure Pulse Oximetry Oxygen Delivery Oxygen Flow Rate Intake/Output Intake/Output: Intake & Output 05/13/24 05/14/24 05/15/24 05/16/24 23:59 23:59 23:59 23:59 Intake Total 470 285 552 360 Output Total 250 700 800 400 Balance 220 -415 -248 -40 Meds/Results Medications: Active Medications Generic Name Dose Route Start Last Admin Trade Name Freq PRN Reason Stop Dose Admin Acetaminophen 650 mg 05/11/24 18:37 Acetaminophen 325 Mg Tablet PO Q4H PRN Mild Pain (1-3) or Fever Albuterol/Ipratropium 3 ml 05/12/24 02:00 05/16/24 12:57 Ipratropium 0.5 Mg/Albuterol Sulfate 2.5 Mg Ampul.Neb 3 Ml INHALATION 3 ml Q6HRT PAPI Administration Aspirin 81 mg 05/12/24 09:00 05/16/24 10:03 Aspirin 81 Mg Enteric Tablet PO 81 mg DAILY PAPI Administration Cyanocobalamin 1,000 mcg 05/13/24 12:20 05/16/24 10:04 Cyanocobalamin 1,000 Mcg Tablet PO 1,000 mcg QAM PAPI Administration Dextrose 12.5 gm 05/11/24 18:37 Dextrose 50% 25 Gm/50 Ml Syringe IV PUSH PRN PRN Hypoglycemia Protocol Diltiazem HCl 300 mg 05/12/24 09:00 05/16/24 10:02 Diltiazem Hcl Cd 300 Mg Cap.24hr PO 300 mg DAILY PAPI Administration Docusate Sodium 100 mg 05/12/24 09:00 05/16/24 10:09 Docusate Sodium 100 Mg Capsule PO 100 mg DAILY PAPI Administration Enoxaparin Sodium 40 mg 05/12/24 09:00 05/16/24 10:10 Enoxaparin 40 Mg/0.4 Ml Syringe SUB-Q 40 mg DAILY PAPI Administration Famotidine 20 mg 05/12/24 21:00 05/15/24 21:03 Famotidine 20 Mg Tablet PO 20 mg QHS PAPI Administration Furosemide 20 mg 05/14/24 11:10 05/16/24 10:11 Furosemide Inj 40 Mg/4 Ml Vial IV PUSH Not Given DAILY PAPI Glucagon 1 mg 05/11/24 18:37 Glucagon For Inj 1 Mg Vial IM PRN PRN Hypoglycemia Protocol Glucose 15 gm 05/11/24 18:37 Glucose Oral Gel 15 Gm Of Glucse In 37.5 Gm Tube PO PRN PRN Hypoglycemia Protocol Guaifenesin 600 mg 05/11/24 22:09 Guaifenesin 12 Hr 600 Mg Tabcr PO Q12H PRN congestion Hydroxyzine HCl 25 mg 05/11/24 22:09 05/15/24 21:02 Hydroxyzine Hcl 25 Mg Tablet PO 25 mg Q6-8H PRN Administration Anxiety Ceftriaxone Sodium 1 gm in 50 mls @ 100 mls/hr 05/12/24 12:00 05/16/24 12:33 Rocephin 1 Gm/Ns 50 Ml IVPB 05/17/24 12:29 100 mls/hr Q24H PAPI Administration Dextrose 1,000 mls @ 100 mls/hr 05/11/24 18:37 Dextrose 5% 1,000 Ml IVPB PRN PRN Hypoglycemia Protocol Insulin Aspart 4 - 8 units 05/12/24 08:00 05/16/24 12:35 Insulin Aspart (*Bkc) 100 Units/Ml SUB-Q 4 units TIDWM PAPI Administration Protocol Insulin Aspart 2 - 4 units 05/12/24 21:00 05/15/24 21:02 Insulin Aspart (*Bkc) 100 Units/Ml SUB-Q 2 units HS PAPI Administration Protocol Insulin Glargine 10 units 05/13/24 21:00 05/15/24 21:02 Insulin Glargine (*Bkc) 100 Units/Ml SUB-Q 10 units HS PAPI Administration Isosorbide Mononitrate 60 mg 05/12/24 09:00 05/16/24 10:03 Isosorbide Mononitrate 60 Mg Tab.Er.24h PO 60 mg DAILY PAPI Administration Loratadine 10 mg 05/12/24 09:00 05/16/24 10:02 Loratadine 10 Mg Tablet PO 10 mg DAILY PAPI Administration Losartan Potassium 50 mg 05/12/24 09:00 05/16/24 10:04 Losartan Potassium 50 Mg Tablet PO 50 mg DAILY PAPI Administration Metoprolol Tartrate 25 mg 05/14/24 09:00 05/16/24 10:10 Metoprolol Tartrate 25 Mg Tablet PO 25 mg Q12HR PAPI Administration Olanzapine 5 mg 05/11/24 23:42 05/15/24 21:02 Olanzapine 5 Mg Tablet PO 5 mg Q8H PRN Administration Delirium Ondansetron HCl 4 mg 05/11/24 18:37 05/13/24 18:56 Ondansetron Inj 4 Mg/2 Ml Vial IV PUSH 4 mg Q4H PRN Administration Nausea Pantoprazole Sodium 40 mg 05/12/24 09:00 05/16/24 10:02 Pantoprazole 40 Mg Tablet PO 40 mg QAM PAPI Administration Prednisone 40 mg 05/16/24 13:45 Prednisone 20 Mg Tablet PO DAILY@0800 [facility] Sodium Chloride 2 spray 05/11/24 22:09 Saline 0.65% [place] Soln 44 Ml Btl NASAL QID PRN dryness Ursodiol 300 mg 05/12/24 09:00 05/16/24 10:01 Ursodiol 300 Mg Capsule PO 300 mg BID PAPI Administration Radiology Results: ITS Impressions Head CT 05/11/24 15:18 IMPRESSION: Old right temporal of occipital infarcts Cerebral atherosclerosis and chronic small vessel ischemic changes of the cerebral white matter No acute intracranial finding or significant change since 06/18/2023 Abdomen/Pelvis CT 05/12/24 16:28 IMPRESSION: 1. Small right and tiny left pleural effusions. 2. Moderate colonic diverticulosis. Modified Barium Swallow 05/16/24 10:04 IMPRESSION: Flash laryngeal penetration without aspiration. Please correlate with speech pathologist findings and specific feeding recommendations. Chest X-Ray 05/16/24 10:06 IMPRESSION: 1. Small bilateral pleural effusions with associated left basilar atelectasis. Labs Labs: Laboratory Results - last 24 hr 05/15/24 05/15/24 05/16/24 16:20 20:59 05:34 WBC 9.4 RBC 2.72 L Hgb 8.5 L Hct 27.1 L MCV 99.6 MCH 31.3 MCHC 31.4 L RDW 15.7 H Plt Count 307 MPV 10.1 Immature Gran % (Auto) 1.7 H Neut % (Auto) 73.1 Lymph % (Auto) 13.8 L [place] % (Auto) 9.1 H Eos % (Auto) 2.0 Baso % (Auto) 0.3 Lymph # (Auto) 1.29 [place] # (Auto) 0.9 H Eos # (Auto) 0.2 Baso # (Auto) 0.0 Abs Immat Gran (auto) 0.16 H Absolute Neuts (auto) 6.9 H Absolute Nucleated RBC 0.000 Nucleated RBC % 0.0 % Immature Plt Fraction 3.9 Sodium 136 L Potassium 3.3 L Chloride 101 Carbon Dioxide 36 H Anion Gap -1 L BUN 37 H Creatinine 1.20 H Estim Creat Clear Calc Not Reportable Estimated GFR 42 L Glucose 198 H POC Capillary Glucose 201 H 213 H Calcium 8.3 L 05/16/24 05/16/24 08:48 12:27 WBC RBC Hgb Hct MCV MCH MCHC RDW Plt Count MPV Immature Gran % (Auto) Neut % (Auto) Lymph % (Auto) [place] % (Auto) Eos % (Auto) Baso % (Auto) Lymph # (Auto) [place] # (Auto) Eos # (Auto) Baso # (Auto) Abs Immat Gran (auto) Absolute Neuts (auto) Absolute Nucleated RBC Nucleated RBC % % Immature Plt Fraction Sodium Potassium Chloride Carbon Dioxide Anion Gap BUN Creatinine Estim Creat Clear Calc Estimated GFR Glucose POC Capillary Glucose 206 H 207 H Calcium Quality VTE Prophylaxis VTE prophylaxis: pharmacologic ordered Hospitalist [facility] Advance Care Plan I have confirmed that the patient's Advanced Care Plan is present, code status is documented, or surrogate decision maker is listed in patient medical record.: Yes Medication Reconciliation I have utilized all available resources to obtain, update and review the patients current medications (includes all prescriptions, OTC, herbals, cannabis, and nutritional supplements).: Yes
[2024-05-16] MEDS: predniSONE 20 MG TABLET 40 MG PO (17:20)
[2024-05-16 17:27] LABS: Glucose Point of Care 129 mg/dl (65-105)
[2024-05-16] MEDS: OLANZapine 5 MG TABLET PO (19:47)
[2024-05-16] MEDS: FAMOTIDINE 20 MG TABLET PO (19:48)
[2024-05-16] MEDS: hydrOXYzine HCL 25 MG TABLET PO (19:48)
[2024-05-16] MEDS: INSULIN GLARGINE (*BKC) 100 UNITS/ML 10 UNITS SUB-Q (20:05)
[2024-05-16] MEDS: BUDESONIDE RESPULE NEB 0.5 MG/2 ML AMP INHALATION (20:27)
[2024-05-16 20:38] LABS: Glucose Point of Care 303 mg/dl (65-105)
[2024-05-17] VITALS (10 sets, daily range): BP systolic 142–148; BP diastolic 65–73; PULSE 68–83; RESP 18–20; TEMP 36.4; O2SAT 98–100
[2024-05-17] MEDS: IPRATROPIUM 0.5 MG/ALBUTEROL SULFATE 2.5 MG AMPUL.NEB 3 ML INHALATION ×3 (02:34→14:48)
[2024-05-17] MEDS: ACETAMINOPHEN 325 MG TABLET 650 MG PO (04:09)
[2024-05-17] MEDS: hydrOXYzine HCL 25 MG TABLET PO (04:09)
[2024-05-17] MEDS: BUDESONIDE RESPULE NEB 0.5 MG/2 ML AMP INHALATION (07:34)
[2024-05-17 08:49] LABS: Glucose Point of Care 309 mg/dl (65-105)
[2024-05-17] MEDS: PANTOPRAZOLE 40 MG TABLET PO (09:32)
[2024-05-17] MEDS: ursodioL 300 MG CAPSULE PO ×2 (09:32→18:01)
[2024-05-17] MEDS: ISOSORBIDE MONONITRATE 60 MG TAB.ER.24H PO (09:32)
[2024-05-17] MEDS: CYANOCOBALAMIN 1,000 MCG TABLET 1000 MCG PO (09:32)
[2024-05-17] MEDS: DOCUSATE SODIUM 100 MG CAPSULE PO (09:32)
[2024-05-17] MEDS: LORATADINE 10 MG TABLET PO (09:33)
[2024-05-17] MEDS: ASPIRIN 81 MG ENTERIC TABLET PO (09:33)
[2024-05-17] MEDS: LOSARTAN POTASSIUM 50 MG TABLET PO (09:33)
[2024-05-17] MEDS: dilTIAZem HCL CD 300 MG CAP.24HR PO (09:33)
[2024-05-17] MEDS: predniSONE 20 MG TABLET 40 MG PO (09:33)
[2024-05-17] MEDS: FUROSEMIDE INJ 40 MG/4 ML VIAL 20 MG IV PUSH (09:33)
[2024-05-17] MEDS: ENOXAPARIN 40 MG/0.4 ML SYRINGE SUB-Q (09:35)
[2024-05-17] MEDS: METOPROLOL TARTRATE 25 MG TABLET PO (09:36)
[2024-05-17] MEDS: INSULIN ASPART (*BKC) 100 UNITS/ML SUB-Q ×3 (09:43→18:02)
[2024-05-17 12:35] LABS: Glucose Point of Care 251 mg/dl (65-105)
--- NOTE | 2024-05-17 13:34 | PM.DS ---
DS: Admitting Diagnosis Discharge Date 05/17/24 Admitting Diagnosis Altered Mental Status DS: Discharge Diagnosis Discharge Diagnosis (1) UTI (urinary tract infection): Qualifiers: Hematuria presence: without hematuria Urinary tract infection type: acute cystitis Qualified Code(s): N30.00 - Acute cystitis without hematuria Code(s): N39.0 - Urinary tract infection, site not specified Status: Acute Assessment and Plan: - Urine culture grew Klebs Aerogenes. - Completed treatment with 6 doses of Ceftriaxone per sensitivities. - Blood cultures NGTD. - No fevers and WBC's wnl. (2) Altered mental status: Qualifiers: Altered mental status type: delirium Qualified Code(s): R41.0 - Disorientation, unspecified Code(s): R41.82 - Altered mental status, unspecified Status: Acute Assessment and Plan: - Possibly related to above and possibly hypoxemia. - Mentation appears baseline currently. - Encouraged to maintain supplemental O2, currently on 2L/NC for sats > 90 %. - No acute neuro changes noted. (3) Urinary retention with incomplete bladder emptying: Code(s): R33.9 - Retention of urine, unspecified Status: Acute Assessment and Plan: - Possibly related to UTI. - Resolved. (4) Acute and chronic respiratory failure: Code(s): J96.20 - Acute and chronic respiratory failure, unspecified whether with hypoxia or hypercapnia Status: Acute Assessment and Plan: - As per grand daughter patient is supposed to wear oxygen at home but she does not wear it - Currently on 2 L/NC for sats > 90 %. - Will be discharged on tapered PO prednisone dose. - Continue with scheduled DuoNebs. - Echocardiogram with normal ejection fraction - Will be continued with home dose lasix. - Chest x-ray; Small bilateral pleural effusions with associated left basilar atelectasis. (5) Type 2 diabetes mellitus with hyperglycemia, with long-term current use of insulin: Code(s): E11.65 - Type 2 diabetes mellitus with hyperglycemia; Z79.4 - residential (current) use of insulin Status: Acute Assessment and Plan: - Continue blood glucose checked t.i.d. a.c. and HS. - Continue with Lantus along with sliding scale insulin - Continue to adjust insulin dose as needed (6) Dysphagia: Code(s): R13.10 - Dysphagia, unspecified Status: Acute Assessment and Plan: - Modified barium swallow normal, with no aspiration noted. - Regular diet, chopped with thin liquids recommended. (7) Atherosclerotic heart disease of [place] coronary artery with unspecified angina pectoris: Qualifiers: [place] vs. transplanted heart: [place] heart Qualified Code(s): I25.119 - Atherosclerotic heart disease of [place] coronary artery with unspecified angina pectoris Code(s): I25.119 - Atherosclerotic heart disease of [place] coronary artery with unspecified angina pectoris Status: Acute Assessment and Plan: - Continued on aspirin, Imdur, losartan, Cardizem, metoprolol Plan Discharge to SNF DS: Summary Hospital Course Reason for hospitalization: Altered Mental Status Hospital Course: Patient was brought to the hospital with reports of altered mental status. Work-up in the ER ws consistent with UTI, and she was admitted for treatment. Patient's urine grew Klebs aerogenes, and she has completed 6 doses of Ceftriaxone per sensitivities. Patient also with chronic respiratory failure, possibly secondary to COPD, ans is supposed to be on 2N/NC continuously but is not compliant. This appears to be one of the causes of her altered mentation as well. She has been encouraged to maintain her O2 at all times. She had a lima catheter when she presented from urinary retention, and this was able to be discontinued, with no residual urine observed. She had a modified barium swallow exam done and no aspiration was noted, pt just advised to eat chopped foods slowly. Her blood glucose were controlled with insulin and pt was treated with steroids and scheduled bronchodilators as well for her respiratory failure. All her other chronic conditions remained stable with her home medications. Patient was recommended for rehab placement after working with PT, prior to going back home due to weakness. Patient is medically stable for discharge, with no acute distress noted or reported prior to discharge. Status at Discharge Functional status at discharge: uses cane/walker Overall status at discharge: patient is progressing back to baseline Time Spent with Patient Time attestation: Total time spent providing and/or coordinating discharge services: Time spent: Greater than 30 minutes Exam Narrative: Gen - Slightly confused on bedrest with diminished breath signs. HEENT: Atraumatic, PERRL, EOM, moist mucosa. NECK: Supple. Chest - Diminished breath sounds with faint bibasilar crackles. CV - RRR, no murmurs. Abd - Soft, non-tender, non-distended, +BS X4 quadrants. Ext - Acyanotic, no edema noted. Neuro - Slightly confused. No focal neuro deficits noted. Psych -confused but co-operative. Skin - Warm and dry DS: Data Data Completed and Pending Labs on day of discharge: Labs from last 24 hours 05/17/24 05/17/24 05/16/24 12:27 08:44 19:48 POC Capillary Glucose 251 H 309 H 303 H 05/16/24 17:23 POC Capillary Glucose 129 H Discharge Plan Discharge Attending physician on discharge: Jolene Bravo Discharging Clinician: Xander Aguiar Anticipated Discharge Date/Time: 05/17/24 13:58 Patient Disposition: Inpatient Rehab Facility Activity: as tolerated Diet: heart healthy and diabetic Patient Language: Faroese Stand Alone Forms: General Discharge Information Follow-up/Referrals: Ruben Molina MD [Primary Care Provider] - 2 Weeks Discharge Medications: New budesonide [Pulmicort] 0.5 mg/2 mL Suspension For Nebulization 0.5 mg inhalation Q12HRT Qty: 1 0RF prednisone 20 mg Tablet 20 mg PO DAILY@0800 Qty: 5 0RF Continued loratadine [Claritin] 10 mg tablet 10 mg PO DAILY albuterol sulfate [Proventil HFA] 90 mcg/actuation HFA aerosol inhaler 1 inhalation INHALATION Q4H PRN (Reason: sob/wheezing) aspirin 81 mg tablet,delayed release (DR/EC) 81 mg PO DAILY Qty: 30 0RF guaifenesin [Mucinex] 600 mg tablet extended release 12hr 600 mg PO BID PRN (Reason: congestion) Qty: 180 3RF (DME) FreeStyle Lite Strips Strip See Rx Instructions .ROUTE .MEDSUPPLY Qty: 300 3RF Rx Instructions: Use to check BS 3 times daily (DME) pen needle, diabetic [BD Ultra-Fine Nelda Pen Needle] 32 gauge x 5/32 needle See Rx Instructions .ROUTE .MEDSUPPLY Qty: 200 3RF Rx Instructions: Use with insulin injections twice daily alcohol swabs Pads, Medicated 1 pad topical .twice daily Qty: 200 3RF insulin lispro protamin-lispro [Humalog Mix 75-25 KwikPen] 100 unit/mL (75-25) insulin pen 16 unit SUBCUT BID isosorbide mononitrate 60 mg tablet extended release 24 hr 60 mg PO DAILY ursodiol 250 mg tablet 250 mg PO BID omeprazole 20 mg capsule,delayed release(DR/EC) 20 mg PO DAILY hydroxyzine HCl 25 mg tablet 25 mg PO Q6-8H PRN (Reason: Anxiety) nystatin 100,000 unit/gram powder 1 applic topical PRN PRN (Reason: irritation) Rx Instructions: APPLY 1 APPLICATION EXTERNALLY TWICE A DAY fluticasone propionate 50 mcg/actuation spray,suspension 1 spray intranasal PRN PRN (Reason: allergies) docusate sodium 100 mg capsule 100 mg PO DAILY acetaminophen [Tylenol] 325 mg capsule 325 mg PO Q6H PRN (Reason: Pain) sodium chloride [Saline Mist] 0.65 % aerosol,spray 2 spray intranasal QID PRN (Reason: dryness) triamcinolone acetonide 0.1 % cream 1 applic topical BID Qty: 453.6 2RF Rx Instructions: apply to affected area furosemide 20 mg tablet 20 mg PO DAILY PRN (Reason: swelling) Qty: 20 0RF losartan 50 mg tablet 50 mg PO DAILY 30 Days Qty: 30 5RF diltiazem HCl [Cartia XT] 300 mg capsule,extended release 24hr 300 mg PO DAILY Qty: 90 3RF azelastine 137 mcg (0.1 %) spray,non-aerosol 137 mcg intranasal Q12H Qty: 90 3RF Rx Instructions: administer into each nostril metoprolol tartrate 25 mg tablet 12.5 mg PO BID Qty: 30 5RF famotidine [Acid Housing Quality Standard Inspector (famotidine)] 20 mg tablet 20 mg PO QHS Qty: 90 1RF Discontinued ketoconazole 2 % cream 1 applic topical BID Qty: 60 5RF Rx Instructions: apply to areas of irritation/itching Date of admission: 05/12/24 08:06 Primary Care Provider: Ruben Molina Admitting Provider: Deshawn Mcguire Attending physician on admission: Deshawn Mcguire Condition: Stable Quality If No VTE Prophylaxis Answer both mechanical and pharmacologic: Reason no mechanical VTE proph: low risk/not indicated Reason no pharmacologic proph: low risk/not indicated Hospitalist MIPS Heart Failure (Exclusion) Patient has history of Heart Transplant or Left Ventricular Assistive Device?: No IF YES, STOP HERE Heart Failure (Qualifier) Patient has current or prior documentation of LVEF less than or equal to 40%, or mod/servere depressed LVSF?: No IF NO, STOP HERE
[2024-05-17 17:35] LABS: Glucose Point of Care 230 mg/dl (65-105)
== END 2024-05-17 18:40 | DRG 871 ==
LOC: ANHED 17:05 → ANH3MED 20:40
PROVIDERS: Internal Medicine; Admitting Provider Internal Medicine; Emergency Provider Physician Assistant; PCP Family Medicine; Visit Provider Internal Medicine
DX: A41.9 Sepsis, unspecified organism (principal); G93.41 Metabolic encephalopathy; J96.01 Acute respiratory failure with hypoxia; N39.0 Urinary tract infection, site not specified; E87.1 Hypo-osmolality and hyponatremia; Z68.41 Body mass index [BMI] 40.0-44.9, adult; R65.20 Severe sepsis without septic shock; I48.91 Unspecified atrial fibrillation; I25.10 Atherosclerotic heart disease of native coronary artery without angina pectoris; I12.9 Hypertensive chronic kidney disease with stage 1 through stage 4 chronic kidney disease, or unspecified chronic kidney disease; N18.32 Chronic kidney disease, stage 3b; E11.22 Type 2 diabetes mellitus with diabetic chronic kidney disease; E86.0 Dehydration; E83.42 Hypomagnesemia; J45.909 Unspecified asthma, uncomplicated; K21.9 Gastro-esophageal reflux disease without esophagitis; N32.81 Overactive bladder; R33.9 Retention of urine, unspecified; E78.5 Hyperlipidemia, unspecified; E66.01 Morbid (severe) obesity due to excess calories; M19.90 Unspecified osteoarthritis, unspecified site; F41.9 Anxiety disorder, unspecified; Z20.822 Contact with and (suspected) exposure to COVID-19; Z77.22 Contact with and (suspected) exposure to environmental tobacco smoke (acute) (chronic); Z79.4 Long term (current) use of insulin; Z79.82 Long term (current) use of aspirin
CPT/HCPCS: 36415; 36600; 70450; 71045; 74176; 80048; 80053; 80069; 81001; 82375; 82550; 82607; 82746; 82805; 82948; 83036; 83050; 83605; 83735; 83880; 84443; 85018; 85025; 85055; 87040; 87086; 87186; 87637; 92610; 92611; 93005; 93306; 94640; 96361; 96365; 96367; 96372; 96375; 96376; 97110; 97161; 97166; 97530; 97535; 99285; A9270; G0378; J0696; J1650; J1815; J1940; J2060; J2359; J2405; J2919; J3420; J3475; J7030; J7512